=== PATIENT | male | born 1930 | race Two or more races ===

== ENCOUNTER → 2016-06-05 | Outpatient (CLI) | payer MEDICARE, OTHER ==
[~2016-06-05] MED LIST: ADENOSINE 71 MG in GIVE UN-DILUTED 0 ML IV SCH; ADENOSINE 90 MG/30 ML INJ IV ONE; FURO20TA GT
== END | disposition home or self-care (01) ==
LOC: Rad HDHVI 12:42
PROVIDERS: ATTEND Internal Medicine Cardiovascular Disease
DX: R07.9 Chest pain, unspecified (principal); I10 Essential (primary) hypertension; I25.10 Atherosclerotic heart disease of native coronary artery without angina pectoris; Z95.0 Presence of cardiac pacemaker; Z95.1 Presence of aortocoronary bypass graft
CPT/HCPCS: 78452; 93005; 96374; 96375; A9500; J0153

== ENCOUNTER → 2016-06-08 | Outpatient (CLI) | payer MEDICARE, OTHER ==
[~2016-06-08] MED LIST changes: -ADENOSINE 71 MG in GIVE UN-DILUTED 0 ML IV SCH; -ADENOSINE 90 MG/30 ML INJ IV ONE
== END | disposition home or self-care (01) ==
LOC: Rad HDHVI 14:22
PROVIDERS: ATTEND Internal Medicine Cardiovascular Disease
DX: I10 Essential (primary) hypertension (principal); E78.2 Mixed hyperlipidemia
CPT/HCPCS: 93306

== ENCOUNTER → 2016-10-27 | Outpatient (CLI) | payer MEDICARE, OTHER ==
[~2016-10-27] VITALS: Ht 170.2 cm; Wt 77.1 kg
[~2016-10-27] MED LIST changes: +BUDE1SUS9; +DEXL60CA3 PO; +DONE10TA17 PO; +FURO40TA PO; +IPRAAER6 IN; +METO50TA7 PO; +SIMV40TA96 PO; +TER5T PO; +TIOTCAP INH; +WARF4TAB31 PO; +[UNRECOGNIZED DRUG - CODE] PO
[2016-10-27 08:00] VITALS: BP 115/71
[2016-10-27 08:40] VITALS: BP 119/55
[2016-10-27 12:22] LABS: Basophils # (auto) 0 uL; Basophils % (auto) 0.5 % (0.0-2.0); CONDITION Y; Eosinophils # (auto) 0.1 uL; Eosinophils % (auto) 1.4 % (0.0-7.0); Hematocrit 42.9 % (41.0-53.0); Hemoglobin 14.3 g/dL (13.5-17.5); Lymphocytes # (auto) 1.6 uL; Lymphocytes % (auto) 22.5 % (10.0-50.0); Mean Corpuscular Hemoglobin 31.8 pg (28.0-32.0); Mean Corpuscular Hgb Conc. 33.4 g/dL (32.0-36.0); Mean Corpuscular Volume 95.1 fL (80.0-100.0); Mean Platelet Volume 9.9 fL (7.4-10.4); Monocytes # (auto) 0.5 uL; Monocytes % (auto) 7.5 % (0.0-12.0); Neutrophils # (auto) 4.9 uL; Neutrophils % (auto) 68.1 % (37.0-80.0); Platelet Count (auto) 193 10^3/uL (140-450); Red Cell Distribution Width 14.1 % (11.6-16.0); White Blood Cell 7.2 10^3/uL (4.4-10.8)
[2016-10-27 12:36] LABS: INR 2.27 (0.9-1.15); Partial Thromboplastin Time 35.2 sec (22.64-33.71)
[2016-10-27 12:41] LABS: Prothrombin Time 24.9 sec (9.37-12.3)
[2016-10-27 12:49] LABS: BUN/Creatinine Ratio 19.2; Calcium 8.6 mg/dL (8.5-10.1); Potassium 3.9 mmol/L (3.5-5.1)
== END | disposition home or self-care (01) ==
LOC: Rad HDHVI 08:09
PROVIDERS: ATTEND Internal Medicine Cardiovascular Disease
DX: Z01.818 Encounter for other preprocedural examination (principal); J90 Pleural effusion, not elsewhere classified; I25.10 Atherosclerotic heart disease of native coronary artery without angina pectoris; I70.0 Atherosclerosis of aorta; J98.11 Atelectasis; I10 Essential (primary) hypertension; D64.9 Anemia, unspecified; R79.1 Abnormal coagulation profile; Z95.1 Presence of aortocoronary bypass graft; Z95.0 Presence of cardiac pacemaker
CPT/HCPCS: 36415; 71020; 80048; 85025; 85610; 85730; 93005; G0463

== ENCOUNTER → 2016-11-02 | Day surgery (SDC) | payer MEDICARE, OTHER ==
[~2016-11-02] VITALS: Ht 170.2 cm; Wt 77.0 kg
[~2016-11-02] MED LIST changes: +VANCOMYCIN 1GM/250ML D5W 250 ML IV ONE; +VANCOMYCIN HCL 1000 MG VL IR ONE
== END | disposition home or self-care (01) ==
LOC: CATH 06:45
PROVIDERS: ATTEND Internal Medicine Cardiovascular Disease
DX: T82.111A Breakdown (mechanical) of cardiac pulse generator (battery), initial encounter (principal); Z53.9 Procedure and treatment not carried out, unspecified reason; Z95.1 Presence of aortocoronary bypass graft; Z87.891 Personal history of nicotine dependence

== ENCOUNTER → 2017-06-29 | Outpatient (CLI) | payer MEDICARE, OTHER ==
[~2017-06-29] MED LIST changes: +ADENOSINE 65 MG in GIVE UN-DILUTED 0 ML IV ONE; +ADENOSINE 90 MG/30 ML INJ IV ONE; -VANCOMYCIN 1GM/250ML D5W 250 ML IV ONE; -VANCOMYCIN HCL 1000 MG VL IR ONE
== END | disposition home or self-care (01) ==
LOC: Rad HDHVI 08:38
PROVIDERS: ATTEND Internal Medicine Cardiovascular Disease
DX: I48.91 Unspecified atrial fibrillation (principal); J44.9 Chronic obstructive pulmonary disease, unspecified; I63.9 Cerebral infarction, unspecified; N40.0 Benign prostatic hyperplasia without lower urinary tract symptoms; I10 Essential (primary) hypertension; E78.5 Hyperlipidemia, unspecified; R06.01 Orthopnea; Z95.0 Presence of cardiac pacemaker; Z95.1 Presence of aortocoronary bypass graft
CPT/HCPCS: 78452; 93005; 93306; 96374; 96375; A9500; J0153

== ENCOUNTER → 2018-07-15 | Outpatient (CLI) | payer MEDICARE, OTHER ==
[~2018-07-15] MED LIST changes: -ADENOSINE 65 MG in GIVE UN-DILUTED 0 ML IV ONE; -ADENOSINE 90 MG/30 ML INJ IV ONE; +MET5XLT PO; -METO50TA7 PO
== END | disposition home or self-care (01) ==
LOC: Rad HDHVI 10:30
PROVIDERS: ATTEND Internal Medicine Cardiovascular Disease
DX: I08.3 Combined rheumatic disorders of mitral, aortic and tricuspid valves (principal); I25.10 Atherosclerotic heart disease of native coronary artery without angina pectoris; I10 Essential (primary) hypertension; I27.20 Pulmonary hypertension, unspecified; M19.012 Primary osteoarthritis, left shoulder
CPT/HCPCS: 71250; 93306

== ENCOUNTER → 2018-12-03 | Outpatient (CLI) | payer MEDICARE, OTHER ==
[~2018-12-03] VITALS: Ht 170.2 cm; Wt 72.6 kg
[~2018-12-03] MED LIST changes: +ADENOSINE 61 MG in GIVE UN-DILUTED 0 ML IV ONE; +ADENOSINE 90 MG/30 ML INJ IV ONE; +FURO1TAB31 PO; +FURO1TAB33 GT; -FURO20TA GT; -FURO40TA PO; -MET5XLT PO; +METO-6 PO; +WARF4TAB PO; -WARF4TAB31 PO
== END | disposition home or self-care (01) ==
LOC: Rad HDHVI 13:46
PROVIDERS: ATTEND Internal Medicine Cardiovascular Disease
DX: R07.9 Chest pain, unspecified (principal); I10 Essential (primary) hypertension; E78.00 Pure hypercholesterolemia, unspecified
CPT/HCPCS: 78452; 93005; 96374; 96375; A9500; J0153

== ENCOUNTER → 2019-02-18 | Outpatient (CLI) | payer MEDICARE, OTHER ==
[~2019-02-18] MED LIST changes: -ADENOSINE 61 MG in GIVE UN-DILUTED 0 ML IV ONE; -ADENOSINE 90 MG/30 ML INJ IV ONE; +IOHEXOL 350 MG/ML 100ML IJ ONE; +LIDOCAINE 2%HCL (LOCAL ANESTH.) INJ 20ML MDV ONE
[2019-02-18 09:53] VITALS: BP 117/75
--- NOTE | 2019-02-18 10:30 | NUR ---
Pre-Op Discharge Summary: See e-MAR for any medications given for this visit. Pre-op orders received and carried out per MD of EKG, LABS and chest xrays. Patient given a copy of EKG with instructions to go to [facility] out patient for further follow up care.
[2019-02-18 12:10] LABS: BUN/Creatinine Ratio 14.5; Basophils # (auto) 0 uL; Basophils % (auto) 0.3 % (0.0-2.0); Calcium 8.8 mg/dL (8.5-10.1); Eosinophils # (auto) 0.1 uL; Eosinophils % (auto) 0.5 % (0.0-7.0); Hematocrit 46.1 % (41.0-53.0); Hemoglobin 15.6 g/dL (13.5-17.5); Lymphocytes # (auto) 1.5 uL; Lymphocytes % (auto) 13.7 % (10.0-50.0); Mean Corpuscular Hgb Conc. 33.7 g/dL (32.0-36.0); Mean Corpuscular Volume 97.8 fL (80.0-100.0); Monocytes # (auto) 0.8 uL; Monocytes % (auto) 6.9 % (0.0-12.0); Neutrophils # (auto) 8.7 uL; Neutrophils % (auto) 78.6 % (37.0-80.0); Platelet Count (auto) 163 10^3/uL (140-450); Potassium 3.8 mmol/L (3.5-5.1); Red Blood Cells 4.72 10^6/uL (4.5-5.90); Red Cell Distribution Width 14.8 % (11.8-14.3); White Blood Cell 11.1 10^3/uL (4.4-10.8)
[2019-02-18 12:13] LABS: INR 1.47 (0.9-1.15); Partial Thromboplastin Time 29.2 sec (23.64-32.05)
[2019-02-18 13:06] VITALS: BP 127/75
== END | disposition home or self-care (01) ==
LOC: Rad HDHVI 09:30
PROVIDERS: ATTEND Internal Medicine Cardiovascular Disease
DX: Z01.812 Encounter for preprocedural laboratory examination (principal); I25.10 Atherosclerotic heart disease of native coronary artery without angina pectoris
CPT/HCPCS: 36415; 71046; 80048; 85025; 85610; 85730; 93005; G0463

== ENCOUNTER 2019-02-20 08:14 | Day surgery (SDC) | payer MEDICARE, OTHER ==
[~2019-02-20] VITALS: Ht 172.7 cm; Wt 73.9 kg
[~2019-02-20 08:14] MED LIST changes: -IOHEXOL 350 MG/ML 100ML IJ ONE; -LIDOCAINE 2%HCL (LOCAL ANESTH.) INJ 20ML MDV ONE
[2019-02-20] MEDS ORDERED: fentaNYL CITRATE 100 MCG/2 ML VL ONE (10:34)
[2019-02-20] MEDS ORDERED: MIDAZOLAM HCL 1MG/1ML-2 ML VIAL ONE (10:34)
[2019-02-20] MEDS ORDERED: ANGIOMAX 250 MG VIAL IV ONE (10:34)
[2019-02-20] MEDS ORDERED: SODIUM CHL 0.9% 0 ML ONE (10:34)
[2019-02-20] MEDS ORDERED: IOHEXOL 350 MG/ML 100ML IJ ONE (10:47)
== END 2019-02-20 14:10 | disposition home or self-care (01) ==
LOC: CATH 08:14
PROVIDERS: ATTEND Internal Medicine Cardiovascular Disease
DX: I25.10 Atherosclerotic heart disease of native coronary artery without angina pectoris (principal); I48.91 Unspecified atrial fibrillation; I11.0 Hypertensive heart disease with heart failure; I50.9 Heart failure, unspecified; Z87.891 Personal history of nicotine dependence; Z95.1 Presence of aortocoronary bypass graft; Z88.0 Allergy status to penicillin
CPT/HCPCS: 93461; C1760; C1894; J1644; J2250; J3010; Q9967; 99152; 99153

== ENCOUNTER → 2019-03-26 | Outpatient (CLI) | payer MEDICARE, OTHER ==
[2019-03-26 12:20] LABS: BUN/Creatinine Ratio 13.2; Calcium 8.7 mg/dL (8.5-10.1); Potassium 3.8 mmol/L (3.5-5.1)
== END | disposition home or self-care (01) ==
LOC: LAB 11:07
PROVIDERS: ATTEND Internal Medicine Cardiovascular Disease
DX: I11.0 Hypertensive heart disease with heart failure (principal); I50.23 Acute on chronic systolic (congestive) heart failure
CPT/HCPCS: 36415; 80048; 83880

== ENCOUNTER → 2019-04-01 | Outpatient (CLI) | payer MEDICARE, OTHER | END | disposition home or self-care (01) | LOC: Rad HDHVI 11:37 | PROVIDERS: ATTEND Internal Medicine Cardiovascular Disease | DX: I08.8 Other rheumatic multiple valve diseases (principal); I50.33 Acute on chronic diastolic (congestive) heart failure; Z95.1 Presence of aortocoronary bypass graft; Z87.891 Personal history of nicotine dependence; Z88.0 Allergy status to penicillin | CPT/HCPCS: 93306 ==

== ENCOUNTER 2019-06-20 16:40 | Inpatient (IN) | payer MEDICARE, OTHER ==
[~2019-06-20] VITALS: Ht 172.7 cm; Wt 69.4 kg
--- NOTE | 2019-06-20 18:01 | NUR ---
Patient arrived to the floor.
[2019-06-20 18:05] VITALS: BP 146/106
[2019-06-20] MEDS ORDERED: SOTALOL HCL 80 MG TAB PO ONE (18:15)
[2019-06-20] MEDS ORDERED: SODIUM CHLORIDE 0.9% 1,000 ML IV SCH (18:15)
[2019-06-20] MEDS ORDERED: NITROGLYCERIN 0.4 MG SL TAB SL PRN (18:15)
[2019-06-20] MEDS ORDERED: KETOROLAC TROMETH 30 MG/ML 1ML VIAL IV PRN (18:15)
[2019-06-20] MEDS ORDERED: MORPHINE SULF INJ 2 MG/ML SYRINGE 1ML IV PRN (18:15)
[2019-06-20 21:44] LABS: Albumin 2.8 g/dL (3.4-5.0); Calcium 8.5 mg/dL (8.5-10.1); Potassium 3.8 mmol/L (3.5-5.1)
[2019-06-20 21:45] LABS: BUN/Creatinine Ratio 20.9
[2019-06-20 21:47] LABS: Bilirubin, Total 1.1 mg/dL (0.2-1.0)
[2019-06-20 22:00] VITALS: BP 150/95
[2019-06-21 05:00] VITALS: BP 153/98
[2019-06-21 06:29] LABS: INR 2.97 (0.9-1.15); Partial Thromboplastin Time 38.2 sec (23.64-32.05)
--- NOTE | 2019-06-21 07:30 | NUR ---
Opening Shift Note Assuming care of patient at this time. Patient is awake and alert. Patient denies pain. Patient shows no signs or symptoms of distress or shortness of breath. Bed is locked and lowered with side rails up x2. Instructed patient on the plan of care for today and to call for assistance as needed. Call light within reach. Will continue to round hourly and as needed.
--- NOTE | 2019-06-21 08:00 | NUR ---
Bowel Movement Patient had a large bowel movement in the bed this morning. Patient states that he called, but could not hold it. Complete linen change done at this time. Patient tolerated well. Patient, currently sitting up in bed eating breakfast.
[2019-06-21 09:00] VITALS: BP 156/96
[2019-06-21] MEDS: KETOROLAC TROMETH 30 MG/ML 1ML VIAL IV PRN ×2 (09:19→18:05)
[2019-06-21] MEDS ORDERED: SOTALOL HCL 80 MG TAB PO SCH ×2 (10:00)
[2019-06-21] MEDS ORDERED: DIGOXIN (250MCG/ML) 2 ML AMPULE IV ONE (10:00)
[2019-06-21 13:00] VITALS: BP 131/83
[2019-06-21 17:00] VITALS: BP 139/85
[2019-06-21 17:55] LABS: Urine Bacteria MOD /hpf (None Seen); Urine Blood 3+ /uL (Negative); Urine Mucus MODERATE (None Seen); Urine Specific Gravity 1.026 (1.001-1.035); Urine WBC 310 /hpf (0 - 3)
[2019-06-21] MEDS: RIVAROXABAN 20 MG TAB PO SCH (17:56)
--- NOTE | 2019-06-21 19:09 | NUR ---
Closing Shift Note Patient resting in bed. No distress noted. Report given. Will endorse care to the nightclub manager RN.
--- NOTE | 2019-06-21 19:15 | NUR ---
assumed care, pt. awake, pt. on bsc, relative at bedside, pt. back to bed, no c/o pain, not in distress.
[2019-06-21 22:00] VITALS: BP 142/81
[2019-06-21] MEDS: MAGNESIUM OXIDE 400 MG TAB PO SCH (22:12)
[2019-06-21] MEDS: SACUBITRIL-VALSARTAN 24mg/26mg TAB PO SCH (22:12)
[2019-06-21] MEDS: SOTALOL HCL 80 MG TAB PO SCH (22:12)
[2019-06-22] MEDS: KETOROLAC TROMETH 30 MG/ML 1ML VIAL IV PRN ×2 (04:38→11:34)
[2019-06-22 05:00] VITALS: BP 146/83
[2019-06-22 05:56] LABS: BUN/Creatinine Ratio 33.3; Calcium 8.2 mg/dL (8.5-10.1); Magnesium 2.5 mg/dL (1.6-2.6); Potassium 3.5 mmol/L (3.5-5.1)
[2019-06-22 09:00] VITALS: BP 139/76
[2019-06-22] MEDS: MAGNESIUM OXIDE 400 MG TAB PO SCH ×2 (10:13→21:54)
[2019-06-22] MEDS: SACUBITRIL-VALSARTAN 24mg/26mg TAB PO SCH ×2 (10:14→21:54)
--- NOTE | 2019-06-22 10:14 | NUR ---
Visitors Granddaughter at bedside visiting patient. Daughter, Debbi, and son-in-law walk in at this time. The family begins arguing about patient care and well-being. Daughter eventually leaves the room. Daughter tell this RN outside of room she does not want any information given to other members of the family. Patient is alert and oriented at this time and able to make decisions regarding his care and who is informed.
[2019-06-22] MEDS: SOTALOL HCL 80 MG TAB PO SCH ×2 (10:18→21:53)
--- NOTE | 2019-06-22 10:20 | NUR ---
Daughter's Information Debbi
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
[2019-06-22] MEDS: cefTRIAXone 1GM/50ML D5W 50 ML IV SCH (11:34)
--- NOTE | 2019-06-22 11:50 | NUR ---
[place] at bedside [place] at bedside at this time due to patient's granddaughter call.
[2019-06-22 13:00] VITALS: BP 127/94
--- NOTE | 2019-06-22 14:23 | NUR ---
Re: Granddaughter Information Silvana
[2019-06-22 17:00] VITALS: BP 127/85
[2019-06-22] MEDS: RIVAROXABAN 20 MG TAB PO SCH (17:48)
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
--- NOTE | 2019-06-22 19:18 | NUR ---
Closing Shift Note Patient resting in bed. No distress noted. Report given. Will endorse care to the manager training and development RN.
--- NOTE | 2019-06-22 19:25 | NUR ---
assumed care, pt. awake, c/o pain, no sob.
[2019-06-22 22:00] VITALS: BP 133/77
[2019-06-23] VITALS (7 sets, daily range): BP systolic 124–149; BP diastolic 73–92
[2019-06-23] MEDS: KETOROLAC TROMETH 30 MG/ML 1ML VIAL IV PRN (05:27)
--- NOTE | 2019-06-23 07:15 | NUR ---
Opening Shift Note Assumed care of patient, awake and alert. No S/S of distress/SOB or pain. Instructed on POC and to call for assist PRN, will continue to monitor for changes Q1hr and PRN. Bed is set in lowest locked position with side rails up x 2 for safety and call light is within reach.
[2019-06-23] MEDS: SOTALOL HCL 80 MG TAB PO SCH ×2 (09:10→21:37)
[2019-06-23] MEDS: cefTRIAXone 1GM/50ML D5W 50 ML IV SCH (09:10)
[2019-06-23] MEDS: MAGNESIUM OXIDE 400 MG TAB PO SCH ×2 (09:10→21:36)
[2019-06-23] MEDS: SACUBITRIL-VALSARTAN 24mg/26mg TAB PO SCH ×2 (09:11→21:36)
[2019-06-23 10:24] LABS: Basophils # (auto) 0 uL; Basophils % (auto) 0.4 % (0.0-2.0); Eosinophils # (auto) 0.2 uL; Eosinophils % (auto) 1.5 % (0.0-7.0); Hematocrit 44.4 % (41.0-53.0); Hemoglobin 15.1 g/dL (13.5-17.5); Lymphocytes % (auto) 10.3 % (10.0-50.0); Mean Corpuscular Hemoglobin 31.8 pg (28.0-32.0); Mean Corpuscular Volume 93.5 fL (80.0-100.0); Monocytes # (auto) 0.8 uL; Monocytes % (auto) 7.6 % (0.0-12.0); Neutrophils # (auto) 8.1 uL; Neutrophils % (auto) 80.2 % (37.0-80.0); Platelet Count (auto) 119 10^3/uL (140-450); Red Blood Cells 4.75 10^6/uL (4.5-5.90); Red Cell Distribution Width 13.6 % (11.8-14.3); White Blood Cell 10.1 10^3/uL (4.4-10.8)
[2019-06-23 10:31] LABS: INR 3.38 (0.9-1.15)
[2019-06-23 10:39] LABS: BUN/Creatinine Ratio 27.5; Calcium 7.8 mg/dL (8.5-10.1); Potassium 3.8 mmol/L (3.5-5.1)
[2019-06-23] MEDS: RIVAROXABAN 20 MG TAB PO SCH (18:15)
--- NOTE | 2019-06-23 19:11 | NUR ---
Endorsed care to NOC RN.
--- NOTE | 2019-06-23 19:25 | NUR ---
Opening Shift Note Assumed care of patient, awake and alert X4. No S/S of distress/SOB or pain. Call light is within reach, side rails up x2, bed is in lowest position, bed alarm is on. Instructed on need to be NPO after midnight for cardioversion in the am, patient verbalized understanding. Instructed on POC and to call for assist PRN, will continue to monitor for changes Q1hr and PRN.
[2019-06-24] VITALS (9 sets, daily range): BP systolic 128–155; BP diastolic 73–89
--- NOTE | 2019-06-24 01:21 | NUR ---
Patient found pulling on his romano, he stated, "I need to go to the bathroom and this machine is in the way." Reoriented patient to his surroundings and what the romano is. Patient verbalized understanding and said, "I won't pull on it anymore, it hurts." There is blood present in the romano, and it is in place. Will continue to monitor.
--- NOTE | 2019-06-24 03:05 | NUR ---
Patient is resting in bed asleep, no S/S of distress. Call light is within reach, will continue to monitor.
--- NOTE | 2019-06-24 07:17 | NUR ---
Opening Shift Note Assumed care of patient, awake and alert. No S/S of distress/SOB or pain. Instructed on POC and to call for assist PRN, will continue to monitor for changes Q1hr and PRN.
[2019-06-24] MEDS: MAGNESIUM OXIDE 400 MG TAB PO SCH ×2 (09:01→21:51)
[2019-06-24] MEDS: cefTRIAXone 1GM/50ML D5W 50 ML IV SCH (09:01)
[2019-06-24] MEDS: SACUBITRIL-VALSARTAN 24mg/26mg TAB PO SCH ×2 (09:01→21:51)
[2019-06-24] MEDS: SOTALOL HCL 80 MG TAB PO SCH ×2 (09:02→21:51)
[2019-06-24] MEDS: KETOROLAC TROMETH 30 MG/ML 1ML VIAL IV PRN (09:03)
--- NOTE | 2019-06-24 11:55 | NUR ---
Patient off unit Taken down to cathead operator for procedure, no distress noted on departure, IV flushed prior and is intact/patent.
[2019-06-24] MEDS ORDERED: MIDAZOLAM HCL 1MG/1ML-2 ML VIAL IV ONE (12:00)
--- NOTE | 2019-06-24 13:27 | NUR ---
NUTRITION ASSESSMENT NOTES Please refer to link notes of nutrition screen form filed under the intervention section of the plan of care for further details. Est. Needs: 1750 kcal to 2100 kcal (25-30 kcal/kgBW), 70 gms to 91 gms pro (1.0-1.2 gms/kgBW). Will continue to monitor pertinent labs and reassess nutrient needs prn Thank you. Addendum: 06/24/19 at [address] Amended: Links added.
--- NOTE | 2019-06-24 15:36 | NUR ---
Assessment Pt went bedside twice to do initial assessment and both times the bed was gone from the room. The pt's was in the room the 2nd time and answered questions on patients behalf. Pt's baseline is alert and oriented. Pt lives at home with his . Pt's daughter Debbi is his emergency contact at [phone]. Pt used no DME in the home and was ambulatory and independent with ADL's. Pt's Primary is Dr. Morales, has no AD, and receives income. No HH or dialysis prior to admit. Pt will d/c back home upon medical clearance. Pt's was understanding and agreeable to d/c plan. Pt's will transport him home. No needs assessed. Addendum: 06/24/19 at 1541 by TOMY LANGFORD Amended: Links added.
--- NOTE | 2019-06-24 16:40 | NUR ---
Patient returned from procedure No distress noted. Patient is resting in bed, family is at bedside at this time.
[2019-06-24] MEDS: RIVAROXABAN 20 MG TAB PO SCH (18:12)
--- NOTE | 2019-06-24 19:25 | NUR ---
OPENING SHIFT NOTE Assumed care of patient who is oriented x3. Easily arouses to name. Currently on 2L NC with no s/s of distress. Denies SOB and pain at this time. Jean-Baptiste catheter is place. Patent and draining to pink tinged urine to gravity. Tubing is free from kinks and collection bag is hung below the level of the bladder. Bed is in low locked position with side rails up x2. Bed alarm on for patient safety due to sedation post procedure. Call light is within reach and patient encouraged to call for assistance when needed. Will continue to monitor for changes PRN.
[2019-06-25] VITALS (7 sets, daily range): BP systolic 127–173; BP diastolic 70–84
--- NOTE | 2019-06-25 03:58 | NUR ---
Patient assisted to bedside commode for bowel movement. Stool is dark in color, with scant amount of nimisha blood noted. MD to be notified. Patient assisted back into bed upon completion and tolerated well.
[2019-06-25] MEDS: MAGNESIUM OXIDE 400 MG TAB PO SCH ×2 (09:03→22:10)
[2019-06-25] MEDS: SACUBITRIL-VALSARTAN 24mg/26mg TAB PO SCH ×2 (09:03→22:10)
[2019-06-25] MEDS: cefTRIAXone 1GM/50ML D5W 50 ML IV SCH (09:03)
[2019-06-25] MEDS: SOTALOL HCL 80 MG TAB PO SCH ×2 (09:04→22:10)
--- NOTE | 2019-06-25 11:34 | NUR ---
Spoke to MD Dr. Andrew MD aware of minimal hematuria in patient's romano catheter bag. No new orders received at this time.
--- NOTE | 2019-06-25 16:15 | NUR ---
MD at bedside Dr. Morales, updated pt on POC, new orders received at this time, will carry out orders.
--- NOTE | 2019-06-25 16:27 | NUR ---
Romano catheter dc'd Order to discontinue romano catheter. Romano dc'd with clean technique following deflation of balloon. Patient tolerated well with no complaints of pain. Continue care.
[2019-06-25] MEDS: RIVAROXABAN 20 MG TAB PO SCH (17:44)
--- NOTE | 2019-06-25 19:27 | NUR ---
Endorsed care to NOC RN.
--- NOTE | 2019-06-25 19:28 | NUR ---
OPENING SHIFT NOTE Assumed care of patient who is A&O x4. Currently on RA with no s/s of distress. Denies pain at this time. Patient is able to transfer to the bedside commode with standby assist. PIVs in right forearm intact and patent. Flushed with 10ml NS. POC discussed and all questions answered. Bed is in low locked position with side rails up x2. Call light is within reach and patient encouraged to call for assistance when needed. Will continue to monitor for changes PRN.
--- NOTE | 2019-06-25 20:30 | NUR ---
Patient reports that he has voided x1 post romano removal. Void not visualized by this RN.
--- NOTE | 2019-06-25 23:00 | NUR ---
WELLFIELD TECHNICIAN verified that patient has produced a minimal amount of urine in urinal.
--- NOTE | 2019-06-26 00:02 | NUR ---
ROUNDS Patient C/O pain to lower back. Repositioned in bed and heat packs provided. Patient verbalizes improvement in pain. Call light is within reach and patient encouraged to call for assistance when needed. Will continue to monitor for changes PRN.
--- NOTE | 2019-06-26 04:50 | NUR ---
BLADDER SCAN Bladder scan performed to rule out urinary retention post Jean-Baptiste removal due to minimal output. No residual detected.
[2019-06-26 05:00] VITALS: BP 142/72
--- NOTE | 2019-06-26 05:13 | NUR ---
Patient instructed to drink water to encourage urine output. Patient is compliant with request and is currently drinking water.
--- NOTE | 2019-06-26 05:30 | NUR ---
Patient able to produce small amount of pink tinged urine. States that he feels that his "urine is stuck". Bladder scan performed 674ml detected. paged to notify.
[2019-06-26 09:00] VITALS: BP 170/84
--- NOTE | 2019-06-26 09:30 | NUR ---
PATIENT UP WITH PHYSICAL THERAPY.
--- NOTE | 2019-06-26 10:00 | NUR ---
BLADDER SCAN SHOWING >999ML POST VOID.
[2019-06-26] MEDS: cefTRIAXone 1GM/50ML D5W 50 ML IV SCH (10:08)
[2019-06-26] MEDS: SACUBITRIL-VALSARTAN 24mg/26mg TAB PO SCH ×2 (10:09→21:49)
[2019-06-26] MEDS: SOTALOL HCL 80 MG TAB PO SCH ×2 (10:09→21:48)
[2019-06-26] MEDS: MAGNESIUM OXIDE 400 MG TAB PO SCH ×2 (10:09→21:49)
--- NOTE | 2019-06-26 10:15 | NUR ---
recieved order for romano catheter from MD Morales.
--- NOTE | 2019-06-26 10:20 | NUR ---
Romano catheter insertion Patient assessed and determined to be in need of romano catheter. Order obtained from MD. Patient educated on catheter and reason for insertion. All questions answered. Romano catheter 16 gauge Malay inserted with clean sterile technique. Patient tolerated well.
[2019-06-26 13:00] VITALS: BP 155/77
[2019-06-26] MEDS ORDERED: TAMSULOSIN HYDROCHLORIDE 0.4 MG CAP PO ONE (14:15)
[2019-06-26] MEDS ORDERED: FINASTERIDE 5 MG TAB PO ONE (14:15)
[2019-06-26 17:00] VITALS: BP 136/71
[2019-06-26] MEDS: RIVAROXABAN 20 MG TAB PO SCH (17:30)
--- NOTE | 2019-06-26 19:00 | NUR ---
Opening Shift Note Assumed care of patient, pt asleep and hard to arouse, was able to assess pt, but pt was drowsy, no abnormalities noted, will continue to monitor vital signs. No S/S of distress/SOB or pain. Instructed on POC and to call for assist PRN, will continue to monitor for changes Q1hr and PRN. pt in lowest possible position with call light within reach.
[2019-06-26 20:00] VITALS: BP 121/67
[2019-06-26] MEDS: TAMSULOSIN HYDROCHLORIDE 0.4 MG CAP PO SCH (21:49)
[2019-06-27 04:45] VITALS: BP 109/76
--- NOTE | 2019-06-27 06:57 | NUR ---
Closing shift note Pt in lowest possible position, with bed rails up x2, and call light within reach. Pt is asleep with no complaints of pain. Will endorse to day shift DHRUV Gutierrez.
--- NOTE | 2019-06-27 08:20 | NUR ---
Opening Note Assumed care of patient, he is A & O x4, patient is hard of hearing. POC discussed. No s/s of distress at this time. Bed is in lowest, locked position, call light within reach, bed alarm on for safety. Will continue to monitor Q1h and PRN.
[2019-06-27 09:00] VITALS: BP 111/66
[2019-06-27] MEDS: cefTRIAXone 1GM/50ML D5W 50 ML IV SCH (10:05)
[2019-06-27] MEDS: SACUBITRIL-VALSARTAN 24mg/26mg TAB PO SCH ×2 (10:06→21:45)
[2019-06-27] MEDS: FINASTERIDE 5 MG TAB PO SCH (10:07)
[2019-06-27] MEDS: TAMSULOSIN HYDROCHLORIDE 0.4 MG CAP PO SCH ×2 (10:07→21:45)
[2019-06-27] MEDS: SOTALOL HCL 80 MG TAB PO SCH ×2 (10:08→21:45)
[2019-06-27] MEDS: MAGNESIUM OXIDE 400 MG TAB PO SCH ×2 (10:09→21:45)
[2019-06-27 13:00] VITALS: BP_SYST 103; BP_SYST 98; BP_DIAS 66; BP_DIAS 67
[2019-06-27 16:48] VITALS: BP 98/67
[2019-06-27] MEDS: RIVAROXABAN 20 MG TAB PO SCH (18:27)
--- NOTE | 2019-06-27 19:00 | NUR ---
Opening Shift Note Assumed care of patient, awake and alert. No S/S of distress/SOB or pain. Instructed on POC and to call for assist PRN, will continue to monitor for changes Q1hr and PRN. Pt not on O2 at the moment, pt stated that he needs it to sleep and would like it back on him when he is ready for bed. Will continue to monitor pts O2 saturations. Pt in the lowest possible position with bed rails up x2 and call light within reach.
[2019-06-27 20:00] VITALS: BP 92/62
[2019-06-27] MEDS: KETOROLAC TROMETH 15 mg/ml 1ML VL IV PRN (20:48)
[2019-06-27 21:45] VITALS: BP 92/62
[2019-06-28 05:01] VITALS: BP 96/65
--- NOTE | 2019-06-28 07:05 | NUR ---
Closing note. Will endorse to day shift RN.
[2019-06-28 09:00] VITALS: BP 118/74
[2019-06-28] MEDS: MAGNESIUM OXIDE 400 MG TAB PO SCH ×2 (10:21→22:34)
[2019-06-28] MEDS: SOTALOL HCL 80 MG TAB PO SCH ×2 (10:23→22:35)
[2019-06-28] MEDS: FINASTERIDE 5 MG TAB PO SCH (10:24)
[2019-06-28] MEDS: cefTRIAXone 1GM/50ML D5W 50 ML IV SCH (10:24)
[2019-06-28] MEDS: TAMSULOSIN HYDROCHLORIDE 0.4 MG CAP PO SCH ×2 (10:27→22:35)
[2019-06-28] MEDS: SACUBITRIL-VALSARTAN 24mg/26mg TAB PO SCH ×2 (10:27→22:35)
--- NOTE | 2019-06-28 12:09 | NUR ---
Dr. Morales at bedside. Family at bedside with patient. Orders received to discontinue romano catheter, scan bladder in a few hours if patient is retaining urine, to reinsert catheter and notify MD, read back and verified.
--- NOTE | 2019-06-28 12:30 | NUR ---
Romano Catheter removed per orders. 900 ml of urine in romano bag prior to catheter removal. Using clean technique removed romano catheter per protocol. Patient tolerated well. Will monitor urine output.
[2019-06-28 13:00] VITALS: BP 122/74
--- NOTE | 2019-06-28 16:30 | NUR ---
Bladder Scan, urinary retention Patient dribbling urine, unable to urinate since removal of romano catheter. Bladder scan done 977ml retained in bladder. Replaced romano catheter per orders, 800 ml output into catheter. Patient tolerated procedure well.
[2019-06-28 17:00] VITALS: BP 110/60
--- NOTE | 2019-06-28 17:00 | NUR ---
Informed Dr. Morales of urinary retention. Orders for urology consultation received, read back, and verified.
[2019-06-28 20:00] VITALS: BP 110/55
[2019-06-28] MEDS: KETOROLAC TROMETH 15 mg/ml 1ML VL IV PRN (21:04)
[2019-06-28 22:00] VITALS: BP 110/55
[2019-06-29] MEDS: KETOROLAC TROMETH 15 mg/ml 1ML VL IV PRN ×2 (04:02→19:41)
[2019-06-29 05:00] VITALS: BP 109/70
[2019-06-29] MEDS: RIVAROXABAN 20 MG TAB PO SCH ×2 (07:53→18:08)
[2019-06-29 08:00] VITALS: BP 117/57
[2019-06-29] MEDS: FINASTERIDE 5 MG TAB PO SCH (09:55)
[2019-06-29] MEDS: MAGNESIUM OXIDE 400 MG TAB PO SCH ×2 (09:55→22:31)
[2019-06-29] MEDS: SACUBITRIL-VALSARTAN 24mg/26mg TAB PO SCH ×2 (09:55→22:30)
[2019-06-29] MEDS: cefTRIAXone 1GM/50ML D5W 50 ML IV SCH (09:55)
[2019-06-29] MEDS: TAMSULOSIN HYDROCHLORIDE 0.4 MG CAP PO SCH ×2 (09:57→22:31)
[2019-06-29] MEDS: SOTALOL HCL 80 MG TAB PO SCH ×2 (09:58→22:00)
[2019-06-29 12:00] VITALS: BP 119/66
[2019-06-29 16:48] VITALS: BP 115/65
--- NOTE | 2019-06-29 19:05 | NUR ---
OPENING SHIFT NOTE Assumed care of patient who is A&O x4. Currently on 2L NC with no s/s of distress or SOB. Patient reports 6/10 back pain. Pain management options discussed. Jean-Baptiste catheter in place; patent and draining to gravity. Collection bag is hung below the level of the bladder and tubing is free from kinks. Patient is ambulatory with standby assist; uses a cane for mobility at baseline. POC discussed with patient who verbalizes understanding. Bed is in low locked position with side rails up x2. Call light is within reach and patient instructed to call for assistance when needed. Will continue to monitor for changes PRN.
[2019-06-29 20:00] VITALS: BP 96/56
[2019-06-29 22:00] VITALS: BP 96/56
[2019-06-30 05:00] VITALS: BP 102/69
--- NOTE | 2019-06-30 05:10 | NUR ---
Oxygen saturation Patient sating in the 80s on RA. HOB elevated and patient placed on 4L NC. Saturation increased to 100%. Patient has dry cough- states it began yesterday. Lungs are clear throughout. Will continue to monitor.
--- NOTE | 2019-06-30 05:34 | NUR ---
Page sent to Dr. Morales regarding patient's cough and low saturations this morning. Awaiting call back.
[2019-06-30] MEDS: KETOROLAC TROMETH 15 mg/ml 1ML VL IV PRN (05:51)
--- NOTE | 2019-06-30 07:32 | NUR ---
Spoke with Dr. Morales, New orders received. Will input and follow through.
[2019-06-30 09:00] VITALS: BP 122/63
[2019-06-30] MEDS: cefTRIAXone 1GM/50ML D5W 50 ML IV SCH (09:53)
[2019-06-30] MEDS: TAMSULOSIN HYDROCHLORIDE 0.4 MG CAP PO SCH ×2 (09:56→22:11)
[2019-06-30] MEDS: MAGNESIUM OXIDE 400 MG TAB PO SCH ×2 (09:57→22:00)
[2019-06-30] MEDS: FINASTERIDE 5 MG TAB PO SCH (09:57)
[2019-06-30] MEDS: SOTALOL HCL 80 MG TAB PO SCH ×2 (09:58→22:10)
[2019-06-30] MEDS: SACUBITRIL-VALSARTAN 24mg/26mg TAB PO SCH ×2 (10:02→22:11)
[2019-06-30 12:10] LABS: Basophils # (auto) 0 10 ^3/uL (0-0.2); Basophils % (auto) 0.6 % (0.0-2.0); Eosinophils # (auto) 0.2 10 ^3/uL (0-0.8); Eosinophils % (auto) 2.3 % (0.0-7.0); Hematocrit 43.1 % (41.0-53.0); Hemoglobin 14.6 g/dL (13.5-17.5); Lymphocytes # (auto) 1.1 10 ^3/uL (0.4-5.4); Lymphocytes % (auto) 15.2 % (10.0-50.0); Mean Corpuscular Hemoglobin 31.7 pg (28.0-32.0); Mean Corpuscular Hgb Conc. 33.9 g/dL (32.0-36.0); Mean Corpuscular Volume 93.4 fL (80.0-100.0); Monocytes # (auto) 0.8 10 ^3/uL (0-1.3); Neutrophils # (auto) 5.1 10 ^3/uL (1.6-8.6); Neutrophils % (auto) 70.9 % (37.0-80.0); Nucleated Red Blood Cells % 0.1 %; Platelet Count (auto) 185 10^3/uL (140-450); Red Blood Cells 4.61 10^6/uL (4.5-5.90); Red Cell Distribution Width 14.2 % (11.8-14.3); White Blood Cell 7.2 10^3/uL (4.4-10.8)
[2019-06-30 12:35] LABS: Albumin 2.4 g/dL (3.4-5.0); Calcium 8.1 mg/dL (8.5-10.1); Potassium 4.3 mmol/L (3.5-5.1)
[2019-06-30 12:41] LABS: BUN/Creatinine Ratio 24.8; Bilirubin, Total 0.4 mg/dL (0.2-1.0); Total Protein 5.3 g/dL (6.4-8.2)
[2019-06-30 13:00] VITALS: BP 104/72
--- NOTE | 2019-06-30 14:37 | NUR ---
ASKED ECOLOGICAL MODELER TO CALL IN UROLOGY CONSULT.
--- NOTE | 2019-06-30 16:44 | NUR ---
WOUND CARE PT LEFT HAND AND ELBOW CLEANSED WITH WOUND CLEANSER, DRIED WITH 4X4 GAUZE AND COVERED WITH OPTIFOAM.
[2019-06-30 17:00] VITALS: BP 116/62
[2019-06-30] MEDS: RIVAROXABAN 20 MG TAB PO SCH (17:40)
--- NOTE | 2019-06-30 17:58 | NUR ---
OUTPUT CREDENTIALER SUMMER REPORTS PT URINE OUTPUT 450 MLS FOR SHIFT.
--- NOTE | 2019-06-30 18:39 | NUR ---
BOTH IV'S LFA AND WRIST DC'D. MODERATE SKIN TEAR FROM LFA IV REMOVAL. CLEANSED WITH WOUND CLEANSER, PATTED DRY WITH 4X4 GAUZE AND COVERED WITH OPTIFOAM. NEW IV INSERTED LFA 22G FLUSHED WITH 0.9 NS. PT TOLERATED PROCEDURE WELL. SMALL AMOUNT OF BLOOD NOTED IN PT CUEVAS, APPROX 50 MLS PINK URINE NOTED. CALLED PBX AND PAGED HOSPITALIST, AWAITING CALL BACK. Addendum: 06/30/19 at 1849 by LYNDSAY BRADFORD RN ATTEMPTED TO USE ALCOHOL SWABS TO REMOVE TAGADERM FROM IV. PT SKIN STILL TORE.
--- NOTE | 2019-06-30 18:40 | NUR ---
IV'S PLACED 06/20, SO THEY WERE REMOVED. SKIN TEAR RFA FROM ATTEMPTING TO REMOVE TEGADERM FROM SKIN. MODERATE AMOUNT OF BLOOD NOTED.
--- NOTE | 2019-06-30 18:49 | NUR ---
DR BIGGS CALLED BACK NOTIFIED MD OF BLOOD IN CUEVAS, NOTIFIED UROLOGY DR ALMAZAN ON BOARD AND PT TAKING XARELTO. AWARE, NEW ORDERS TO MONITOR.
[2019-06-30 22:00] VITALS: BP 135/69
[2019-07-01] MEDS: KETOROLAC TROMETH 15 mg/ml 1ML VL IV PRN ×2 (00:25→22:38)
[2019-07-01 05:00] VITALS: BP 122/63
--- NOTE | 2019-07-01 06:52 | NUR ---
WOUND CARE WOUND LEFT FOREARM CLEANED AND NEW OPTIFOAM APPLIED. WOUND CONSULT PUT IN. PT TOLERATED PROCEDURE WELL, WILL CONTINUE TO MONITOR.
[2019-07-01 09:00] VITALS: BP 123/50
--- NOTE | 2019-07-01 09:38 | NUR ---
INTERVENTIONAL NEURORADIOLOGIST REPORTS PT HR 55 BPM, REASSESSED HR, HR 82 BPM.
[2019-07-01] MEDS: cefTRIAXone 1GM/50ML D5W 50 ML IV SCH (09:56)
[2019-07-01] MEDS: SACUBITRIL-VALSARTAN 24mg/26mg TAB PO SCH ×2 (09:57→22:37)
[2019-07-01] MEDS: FINASTERIDE 5 MG TAB PO SCH (09:57)
[2019-07-01] MEDS: TAMSULOSIN HYDROCHLORIDE 0.4 MG CAP PO SCH ×2 (09:57→22:37)
[2019-07-01] MEDS: SOTALOL HCL 80 MG TAB PO SCH ×2 (09:58→22:37)
[2019-07-01] MEDS: MAGNESIUM OXIDE 400 MG TAB PO SCH ×2 (09:59→22:00)
--- NOTE | 2019-07-01 11:16 | NUR ---
BRADY FROM WOUND CARE REPORTS SHE WILL SEE PATIENT THIS AFTERNOON.
--- NOTE | 2019-07-01 12:04 | NUR ---
WOUND CARE ASSISTED BRADY FROM WOUND CARE WITH DRESSING CHANGE TO RIGHT FOREARM. WOUND CLEANSED WITH WOUND CLEANSER, THERA HONEY APPLIED. THEN PETROLEUM SHEET ADDED AND COVERED WITH KERLIX. PT TOLERATED PROCEDURE WELL. WOUND PHOTO TAKEN.
--- NOTE | 2019-07-01 12:08 | NUR ---
WOUND CARE NOTE: Wound care into see patient per wound care request regarding "Right forearm skin tear". Patient is 88 years old male with admitting diagnosis of A Fib. Patient is resting in bed in Rm. 277B. Patient is awake, alert and oriented. Patient is in no stated pain at this time. He's self turn and repositioning. His Gerson score is 19. Skin assessment done with the assistance of patient's nurse, DHRUV Ceron. Patient developed skin tear upon removal of IV dressing to Rt forearm per nurse's reports. Noted patient's Rt forearm has 7x5cm open skin tear. Wound is red with pink aurea wound, minimal sanguinous drainage noted, no odor noted. Cleansed patient's Rt forearm skin tear with NS, patted dry with gauze, applied Thera honey gel, covered with oil emulsion dressing and Telfa, wrap with Kerlix and secured with tape. Dry scab also noted on patient's L hand. He also came in with multi skin tears to Lt elbow with, clean, dry intact dressing on. Photograph of patient's new Rt forearm skin tear are taken for reference. No pressure injury noted. No further wound care monitoring needed at this time. DHRUV Ceron at bedside. RECOMMENDATION: Nursing to continue with Q3Days/PRN dressing change to Rt forearm skin tear per MD order, avoid tape on skin, reconsult for active wound, pressure injury, low Gerson score of 12 and below. Addendum: 07/01/19 at 1600 by Ayanna Vasquez RN Amended: Links added.
[2019-07-01 12:54] VITALS: BP 121/69
--- NOTE | 2019-07-01 12:58 | NUR ---
CALLED AND LEFT MESSAGE FOR DR TAVERAS, NOTIFYING MD OF PT SKIN TEAR RFA, WOUND CONSULT AND WOUND CARE. ALSO PUT IN MESSAGE PT HAS SLIGHT AMOUNT OF BLOOD IN URINE. AWAITING CALL BACK.
[2019-07-01 16:37] VITALS: BP 121/90
[2019-07-01] MEDS: RIVAROXABAN 20 MG TAB PO SCH (18:11)
[2019-07-01] MEDS ORDERED: KETOROLAC TROMETH 15 mg/ml 1ML VL IV ONE (19:15)
[2019-07-01 22:08] VITALS: BP 114/64
[2019-07-02 05:00] VITALS: BP 103/57
[2019-07-02] MEDS: KETOROLAC TROMETH 15 mg/ml 1ML VL IV PRN (07:15)
[2019-07-02 09:00] VITALS: BP 90/51
[2019-07-02] MEDS: SOTALOL HCL 80 MG TAB PO SCH ×3 (09:48→22:00)
[2019-07-02] MEDS: cefTRIAXone 1GM/50ML D5W 50 ML IV SCH (09:48)
[2019-07-02] MEDS: MAGNESIUM OXIDE 400 MG TAB PO SCH ×3 (09:49→22:00)
[2019-07-02] MEDS: FINASTERIDE 5 MG TAB PO SCH (09:50)
[2019-07-02] MEDS: TAMSULOSIN HYDROCHLORIDE 0.4 MG CAP PO SCH ×3 (09:50→22:00)
[2019-07-02] MEDS: SACUBITRIL-VALSARTAN 24mg/26mg TAB PO SCH ×2 (09:52→21:53)
--- NOTE | 2019-07-02 11:45 | NUR ---
Called Dr. Morales regarding holding the Sotalol due to low BP 90/51, hr 87, left a message, awaiting call back.
--- NOTE | 2019-07-02 12:05 | NUR ---
returned call Dr. Morales returned call, updated on patient status and reason for call, orders received to d/c pt home with leg bag, educate pt on emptying leg bag, follow up with in 1 week. Continue care.
[2019-07-02 13:00] VITALS: BP 108/73
--- NOTE | 2019-07-02 13:42 | NUR ---
Nutrition Follow-up + CONSULT Notes Additional Recommendation: 1) Consider Prostat 1 pkt daily, daily MVi tab, 500 mg Vitamin C BID Wt.: 68.8 kg today Pt was in room with no relatives at bedside when rounded this morning. Pt stated appetite was good aeb avg PO intake of 78% x 10 meals. Current diet order is Cardiac diet 2g Na, Low Fat, Low Cholesterol. Estimated Needs: 1750 kcal to 2100 kcal (25-30 kcal/kgBW), 70 gms to 91 gms pro (1.0-1.2 gms/kgBW). Will continue to monitor pertinent labs and reassess nutrient needs prn Labs 06/29: Anion gap 3 L, BUN 25 H, Ca 8.1 L, Mg 2.7 H, AST 13 L, TP 5.3 L, Albumin 2.4 L Skin: Gerson scale 19, low risk, skin tears and scabs per admitting representative. GI: Pt had BM 06/30/19 per admitting representative. PES: 1) Altered nutrition related lab values RT acute/chronic medical condition AEB hyperchloremia, elev. BUN, hyperbilirubinemia, hypocalcemia and mod hypoalbuminemia Will continue to monitor PO intake, pertinent labs, skin status and weight trends. F/u in 3 to 5 days. Recommendations: 1) Continue close supervision and feeding assistance prn during meals. 2) Refer to RD for further nutrition education and weight monitoring upon discharge. 3) Continue current plan of care.
[2019-07-02 14:08] VITALS: BP 90/51
--- NOTE | 2019-07-02 15:40 | NUR ---
re-assessment Per consult [employer] [facility]. Belén RECIO gave patient a choice letter and patient has signed for [facility]. Per [facility] start of care will be 07/04/2019. Patient has been notified. Addendum: 07/02/19 at 1542 by Roxi Barrera Amended: Links added.
--- NOTE | 2019-07-02 15:52 | NUR ---
Discharge instructions given as ordered. Encourage to follow up with PMD as instructed. All questions and concerns addressed. Patient verbalized understanding. Medication reconciliation form completed and copy given to patient. No home medications held in Pharmacy, and no needed vaccines to be given. IV removed with catheter intact, pressure dressing applied, romano catheter changed to leg bag, pt and family educated on how to empty the leg bag. Telemetry unit returned to ICU.
--- NOTE | 2019-07-02 16:35 | NUR ---
Amy at bed side to pick pack worker pt to wheel pt out of the hospital, pt is shivering, pt is pale and looks very lethargic, v/s bp 66/46, O2 sat 77%, HR 55, temp 99.8, called RT to assess pt, called Dr. Morales to inform pt's current status, orders received to hold d/c and to give NS at 100 ml/hr.
[2019-07-02 16:50] VITALS: BP 158/103
--- NOTE | 2019-07-02 17:35 | NUR ---
Called and inform Dr. Morales to let him know that pt is has have 2 runs of Vtach and running A.fib at 150s, orders received for Tylenol, zithromax 500mg IV qday, chest x_ray, CBC, UA.
[2019-07-02] MEDS: SODIUM CHLORIDE 0.9% 1,000 ML IV SCH (17:47)
[2019-07-02] MEDS: AZITHROMYCIN 500MG/ 250ML 250 ML IV SCH (17:48)
[2019-07-02] MEDS: ACETAMINOPHEN 325 MG TAB PO PRN (17:48)
[2019-07-02] MEDS: RIVAROXABAN 20 MG TAB PO SCH (17:48)
--- NOTE | 2019-07-02 18:05 | NUR ---
Pt becoming confused X-ray tech at bed side, pt is taking off the nasal canula, at bed side, pt was refusing chest x-ray, pt agreed to have xray done, charge nurse informed pt will have a sitter at bed side.
[2019-07-02 18:24] LABS: Basophils # (auto) 0.1 10 ^3/uL (0-0.2); Basophils % (auto) 0.6 % (0.0-2.0); Eosinophils # (auto) 0.1 10 ^3/uL (0-0.8); Eosinophils % (auto) 0.6 % (0.0-7.0); Hematocrit 45.2 % (41.0-53.0); Hemoglobin 14.8 g/dL (13.5-17.5); Lymphocytes # (auto) 0.6 10 ^3/uL (0.4-5.4); Lymphocytes % (auto) 4.4 % (10.0-50.0); Mean Corpuscular Hemoglobin 30.5 pg (28.0-32.0); Mean Corpuscular Hgb Conc. 32.7 g/dL (32.0-36.0); Mean Corpuscular Volume 93.3 fL (80.0-100.0); Monocytes # (auto) 0.4 10 ^3/uL (0-1.3); Monocytes % (auto) 2.7 % (0.0-12.0); Neutrophils % (auto) 91.7 % (37.0-80.0); Nucleated Red Blood Cells % 0.1 %; Platelet Count (auto) 180 10^3/uL (140-450); Red Blood Cells 4.85 10^6/uL (4.5-5.90); Red Cell Distribution Width 14.7 % (11.8-14.3)
[2019-07-02 18:33] LABS: White Blood Cell 14.2 10^3/uL (4.4-10.8)
[2019-07-02 22:00] VITALS: BP 100/56
--- NOTE | 2019-07-02 23:22 | NUR ---
UA sent to lab Sample obtained from port on Jean-Baptiste after clamping tubing and cleaning port.
[2019-07-03] VITALS (7 sets, daily range): BP systolic 102–142; BP diastolic 64–94
[2019-07-03 00:36] LABS: Urine Bacteria FEW /hpf (None Seen); Urine Blood 1+ /uL (Negative); Urine Specific Gravity 1.011 (1.001-1.035); Urine WBC 1 /hpf (0 - 3)
[2019-07-03] MEDS: SODIUM CHLORIDE 0.9% 1,000 ML IV SCH ×2 (04:00→14:35)
[2019-07-03] MEDS: ACETAMINOPHEN 325 MG TAB PO PRN (06:49)
[2019-07-03] MEDS: cefTRIAXone 1GM/50ML D5W 50 ML IV SCH (08:36)
[2019-07-03] MEDS: MAGNESIUM OXIDE 400 MG TAB PO SCH ×2 (09:30→22:24)
[2019-07-03] MEDS: TAMSULOSIN HYDROCHLORIDE 0.4 MG CAP PO SCH ×2 (09:30→22:24)
[2019-07-03] MEDS: FINASTERIDE 5 MG TAB PO SCH (09:31)
[2019-07-03] MEDS: AZITHROMYCIN 500MG/ 250ML 250 ML IV SCH (09:31)
[2019-07-03] MEDS: SACUBITRIL-VALSARTAN 24mg/26mg TAB PO SCH ×2 (09:33→22:24)
[2019-07-03] MEDS: SOTALOL HCL 80 MG TAB PO SCH ×2 (09:33→22:24)
[2019-07-03] MEDS: KETOROLAC TROMETH 15 mg/ml 1ML VL IV PRN ×2 (10:40→20:57)
[2019-07-03] MEDS: Ensure HIGH Protein Chocolate 8oz Bottle PO SCH ×2 (12:46→18:07)
[2019-07-03] MEDS: RIVAROXABAN 20 MG TAB PO SCH (18:43)
--- NOTE | 2019-07-03 19:30 | NUR ---
Opening Shift Note Assumed care of patient, awake and alert x4. No S/S of distress/SOB or pain. Call light is within reach, side rails up x2, bed is in the lowest position, brakes are locked. O2 is infusing at 3 L/min via nasal cannula. Jean-Baptiste is in place and draining clear/yellow urine. Instructed on POC and to call for assist PRN. All questions and concerns answered, will continue to monitor for changes Q1hr and PRN.
--- NOTE | 2019-07-03 20:57 | NUR ---
Patient is complaining of pain 5/0-10 to the back. Toradol is available, will medicate as ordered.
[2019-07-03] MEDS ORDERED: BRIMONIDINE 0.2% OPTH Soln 5ml EACHEYE SCH (22:00)
[2019-07-03] MEDS ORDERED: BRIMONIDINE 0.1% OP SCH (22:00)
[2019-07-03] MEDS: BRIMONIDINE 0.1% OP SCH (22:23)
--- NOTE | 2019-07-03 23:00 | NUR ---
Pain reassessment Patient is resting in bed asleep, no S/S of distress or pain noted. Call light is within reach, bed alarm remains on. Will continue to monitor.
[2019-07-04] MEDS: SODIUM CHLORIDE 0.9% 1,000 ML IV SCH ×3 (00:29→19:45)
[2019-07-04 04:56] VITALS: BP 135/70
[2019-07-04 08:34] VITALS: BP 132/82
--- NOTE | 2019-07-04 09:34 | NUR ---
AMBULATING IN HALLWAY STEADY GAIT WITH PHYSICAL THERAPY USING A WALKER AND OXYGEN. NO SIGNS OF DISTRESS.
[2019-07-04] MEDS: cefTRIAXone 1GM/50ML D5W 50 ML IV SCH (10:15)
[2019-07-04] MEDS: Ensure HIGH Protein Chocolate 8oz Bottle PO SCH ×3 (10:15→17:36)
[2019-07-04] MEDS: AZITHROMYCIN 500MG/ 250ML 250 ML IV SCH (10:15)
[2019-07-04] MEDS: MAGNESIUM OXIDE 400 MG TAB PO SCH ×2 (10:16→21:51)
[2019-07-04] MEDS: SACUBITRIL-VALSARTAN 24mg/26mg TAB PO SCH ×2 (10:16→21:50)
[2019-07-04] MEDS: TAMSULOSIN HYDROCHLORIDE 0.4 MG CAP PO SCH ×2 (10:16→21:51)
[2019-07-04] MEDS: SOTALOL HCL 80 MG TAB PO SCH ×2 (10:16→21:50)
[2019-07-04] MEDS: FINASTERIDE 5 MG TAB PO SCH (10:16)
[2019-07-04 13:00] VITALS: BP 129/81
[2019-07-04] MEDS: BRIMONIDINE 0.1% OP SCH ×2 (14:44→21:50)
[2019-07-04 16:06] LABS: Basophils # (auto) 0 10 ^3/uL (0-0.2); Basophils % (auto) 0.3 % (0.0-2.0); Eosinophils # (auto) 0 10 ^3/uL (0-0.8); Eosinophils % (auto) 0.4 % (0.0-7.0); Hematocrit 39.9 % (41.0-53.0); Hemoglobin 13.3 g/dL (13.5-17.5); Lymphocytes # (auto) 1.3 10 ^3/uL (0.4-5.4); Lymphocytes % (auto) 15.5 % (10.0-50.0); Mean Corpuscular Hemoglobin 31.5 pg (28.0-32.0); Mean Corpuscular Hgb Conc. 33.3 g/dL (32.0-36.0); Mean Corpuscular Volume 94.5 fL (80.0-100.0); Monocytes % (auto) 12.3 % (0.0-12.0); Neutrophils # (auto) 6.1 10 ^3/uL (1.6-8.6); Neutrophils % (auto) 71.5 % (37.0-80.0); Platelet Count (auto) 138 10^3/uL (140-450); Red Blood Cells 4.22 10^6/uL (4.5-5.90); Red Cell Distribution Width 14.6 % (11.8-14.3); White Blood Cell 8.5 10^3/uL (4.4-10.8)
[2019-07-04 16:29] LABS: Albumin 2.3 g/dL (3.4-5.0); Potassium 4.7 mmol/L (3.5-5.1)
[2019-07-04 16:30] VITALS: BP 136/80
[2019-07-04 16:32] LABS: BUN/Creatinine Ratio 31.7; Bilirubin, Total 0.4 mg/dL (0.2-1.0); Total Protein 5.5 g/dL (6.4-8.2)
[2019-07-04] MEDS: RIVAROXABAN 20 MG TAB PO SCH (18:07)
--- NOTE | 2019-07-04 19:14 | NUR ---
report given to restaurant shift supervisor no signs of distress.
--- NOTE | 2019-07-04 19:30 | NUR ---
Opening Shift Note Assumed care of patient, awake and alert x4. No S/S of distress/SOB or pain. Jean-Baptiste is in place, hung below bladder, patent and draining. Call light is within reach, side rails up x2, bed is in the lowest position, brakes are locked, bed alarm is on. Instructed on POC and to call for assist PRN. All questions and concerns answered, will continue to monitor for changes Q1hr and PRN.
[2019-07-04 21:48] VITALS: BP 123/84
[2019-07-04 22:41] VITALS: BP 115/72
[2019-07-05 04:48] VITALS: BP 142/76
[2019-07-05] MEDS: SODIUM CHLORIDE 0.9% 1,000 ML IV SCH ×2 (06:51→18:16)
--- NOTE | 2019-07-05 07:54 | NUR ---
OPENING SHIFT NOTE Assumed care of patient. PT is awake and A&Ox4. Patient is hard of hearing. PT moved to room 76A. POC discussed. No s/s of distress at this time. Bed is in lowest, locked position, call light within reach, bed alarm on for safety. Will continue to monitor Q1h and PRN.
[2019-07-05 09:00] VITALS: BP 131/84
[2019-07-05] MEDS: Ensure HIGH Protein Chocolate 8oz Bottle PO SCH ×3 (09:08→18:16)
[2019-07-05] MEDS: cefTRIAXone 1GM/50ML D5W 50 ML IV SCH (09:09)
[2019-07-05] MEDS: FINASTERIDE 5 MG TAB PO SCH (09:10)
[2019-07-05] MEDS: TAMSULOSIN HYDROCHLORIDE 0.4 MG CAP PO SCH ×2 (09:10→21:23)
[2019-07-05] MEDS: MAGNESIUM OXIDE 400 MG TAB PO SCH ×2 (09:10→21:23)
[2019-07-05] MEDS: SACUBITRIL-VALSARTAN 24mg/26mg TAB PO SCH ×2 (09:11→12:15)
[2019-07-05] MEDS: BRIMONIDINE 0.1% OP SCH ×2 (09:11→22:00)
[2019-07-05] MEDS: SOTALOL HCL 80 MG TAB PO SCH ×2 (09:12→22:00)
[2019-07-05] MEDS: AZITHROMYCIN 500MG/ 250ML 250 ML IV SCH (10:30)
[2019-07-05] MEDS ORDERED: DIGOXIN 0.125 MG TAB PO ONE (12:15)
[2019-07-05 13:00] VITALS: BP 118/66
[2019-07-05 17:00] VITALS: BP 124/69
[2019-07-05] MEDS: RIVAROXABAN 20 MG TAB PO SCH (18:16)
[2019-07-05 20:00] VITALS: BP 131/84
[2019-07-05 22:00] VITALS: BP 126/54
[2019-07-05] MEDS: ACETAMINOPHEN 325 MG TAB PO PRN (23:49)
[2019-07-06] MEDS: SODIUM CHLORIDE 0.9% 1,000 ML IV SCH ×3 (01:45→21:54)
[2019-07-06 02:00] VITALS: BP 117/69
--- NOTE | 2019-07-06 04:04 | NUR ---
PT ASSISTED TO BEDSIDE COMMODE.PASSING GAS BUT NO STOOL PRODUCED.BACK IN BED WITH ASSISTANCE. TOLERATED WELL.
[2019-07-06 05:00] VITALS: BP 143/78
--- NOTE | 2019-07-06 07:36 | NUR ---
OPENING SHIFT NOTE Resumed care of patient. PT is awake and A&O x4. POC discussed with PT. Patient is hard of hearing. No s/s of distress at this time. Bed is in lowest, locked position, call light within reach, bed alarm on for safety. Will continue to monitor Q1h and PRN.
[2019-07-06 08:21] VITALS: BP 147/80
[2019-07-06] MEDS: Ensure HIGH Protein Chocolate 8oz Bottle PO SCH ×3 (08:45→18:14)
[2019-07-06] MEDS: MAGNESIUM OXIDE 400 MG TAB PO SCH ×2 (09:17→21:54)
[2019-07-06] MEDS: SACUBITRIL-VALSARTAN 24mg/26mg TAB PO SCH (09:17)
[2019-07-06] MEDS: TAMSULOSIN HYDROCHLORIDE 0.4 MG CAP PO SCH ×2 (09:18→21:54)
[2019-07-06] MEDS: SOTALOL HCL 80 MG TAB PO SCH ×2 (09:18→21:54)
[2019-07-06] MEDS: FINASTERIDE 5 MG TAB PO SCH (09:18)
[2019-07-06] MEDS: BRIMONIDINE 0.1% OP SCH ×2 (09:19→21:55)
[2019-07-06] MEDS: DIGOXIN 0.125 MG TAB PO SCH (09:19)
[2019-07-06] MEDS: AZITHROMYCIN 500MG/ 250ML 250 ML IV SCH (09:19)
--- NOTE | 2019-07-06 12:18 | NUR ---
Pt was able to dre well to ambulation, pt did need to take a rest when started to feel SOB. Pt's O2 level was increased to level 6 and was told to take slow deep breaths to help regulate breathing, pt understood Addendum: 07/06/19 at 1221 by Asia Diaz PT Amended: Links added.
[2019-07-06 12:30] VITALS: BP 110/65
[2019-07-06 17:03] VITALS: BP 126/76
[2019-07-06] MEDS: RIVAROXABAN 20 MG TAB PO SCH (18:14)
[2019-07-06 22:00] VITALS: BP 130/69
[2019-07-07 06:00] VITALS: BP 128/78
[2019-07-07] MEDS: ACETAMINOPHEN 325 MG TAB PO PRN (06:13)
[2019-07-07] MEDS: Ensure HIGH Protein Chocolate 8oz Bottle PO SCH ×3 (07:59→18:34)
[2019-07-07] MEDS: SODIUM CHLORIDE 0.9% 1,000 ML IV SCH ×2 (07:59→18:34)
--- NOTE | 2019-07-07 08:00 | NUR ---
OPENING SHIFT NOTE Assumed care of patient. PT is awake and A&O x4. POC discussed with PT. Will contact DR Morales regarding plan of discharge. No s/s of distress at this time. Bed is in lowest, locked position, call light within reach, bed alarm on for safety. Will continue to monitor Q1h and PRN.
[2019-07-07 09:00] VITALS: BP 133/81
[2019-07-07] MEDS: AZITHROMYCIN 500MG/ 250ML 250 ML IV SCH (11:39)
[2019-07-07] MEDS: BRIMONIDINE 0.1% OP SCH ×2 (11:40→21:35)
[2019-07-07] MEDS: SOTALOL HCL 80 MG TAB PO SCH ×2 (11:40→21:35)
[2019-07-07] MEDS: MAGNESIUM OXIDE 400 MG TAB PO SCH ×2 (11:41→21:35)
[2019-07-07] MEDS: TAMSULOSIN HYDROCHLORIDE 0.4 MG CAP PO SCH ×2 (11:41→21:35)
[2019-07-07] MEDS: SACUBITRIL-VALSARTAN 24mg/26mg TAB PO SCH (11:41)
[2019-07-07] MEDS: FINASTERIDE 5 MG TAB PO SCH (11:42)
[2019-07-07] MEDS: DIGOXIN 0.125 MG TAB PO SCH (11:42)
[2019-07-07 12:29] VITALS: BP 147/74
[2019-07-07 17:12] VITALS: BP 123/78
[2019-07-07] MEDS: RIVAROXABAN 20 MG TAB PO SCH (18:35)
[2019-07-07 22:00] VITALS: BP 128/74
[2019-07-08] MEDS: ACETAMINOPHEN 325 MG TAB PO PRN (03:00)
[2019-07-08] MEDS: SODIUM CHLORIDE 0.9% 1,000 ML IV SCH ×3 (03:00→23:45)
[2019-07-08 05:00] VITALS: BP 121/72
[2019-07-08] MEDS: Ensure HIGH Protein Chocolate 8oz Bottle PO SCH ×3 (08:00→18:00)
--- NOTE | 2019-07-08 08:00 | NUR ---
Morning note patient resting in bed with even and unlabored respirations 4 LPM NC, no distress noted. Instructed patient on POC, fall precautions and to call for assistance as needed. Patient verbalized understanding. Fall precautions in place with call light within reach. Patient's personal cane at bedside.
[2019-07-08 09:00] VITALS: BP 146/71
[2019-07-08] MEDS: TAMSULOSIN HYDROCHLORIDE 0.4 MG CAP PO SCH ×2 (09:15→21:53)
[2019-07-08] MEDS: AZITHROMYCIN 500MG/ 250ML 250 ML IV SCH (09:15)
[2019-07-08] MEDS: FINASTERIDE 5 MG TAB PO SCH (09:17)
[2019-07-08] MEDS: DIGOXIN 0.125 MG TAB PO SCH (09:17)
[2019-07-08] MEDS: MAGNESIUM OXIDE 400 MG TAB PO SCH ×2 (09:18→21:52)
[2019-07-08] MEDS: SACUBITRIL-VALSARTAN 24mg/26mg TAB PO SCH (09:18)
[2019-07-08] MEDS: SOTALOL HCL 80 MG TAB PO SCH ×2 (09:19→21:53)
[2019-07-08] MEDS: BRIMONIDINE 0.1% OP SCH ×2 (09:24→22:01)
--- NOTE | 2019-07-08 10:31 | NUR ---
IV removal/IV insertion IV DC'd with clean technique, catheter fully intact. Dressing applied to site. Patient tolerated procedure well, no trauma noted. IV access obtained, via clean technique by inserting 20 gauge catheter at LAC after one attempt. IV secured properly. No trauma to site. Patient tolerated procedure well. Fall Precautions in place with the bed in the lowest position and call light within reach. Signed: 07/08/19 at 1038 by FILOMENA TODD <Co-Signature Required> Co-Signed: 07/08/19 at 1038 by Lora Barrera RN
[2019-07-08] MEDS ORDERED: IOHEXOL 350 MG/ML 100ML IJ ONE ×2 (12:39→14:01)
[2019-07-08] MEDS ORDERED: LIDOCAINE 2%HCL (LOCAL ANESTH.) INJ 20ML MDV ONE (12:39)
[2019-07-08 12:58] VITALS: BP 119/74
--- NOTE | 2019-07-08 12:59 | NUR ---
Patient transferred to pipelines laborer via hospital bed. Respirations even and unlabored on 4 LPM NC, no distress noted. IV is patent with no s/s of phlebitis, infiltration and/or leaking. casting house laborer RNBethel, notified that patient consumed lunch meal. Patient's spouse updated on POC.
[2019-07-08 13:12] LABS: Basophils # (auto) 0 10 ^3/uL (0-0.2); Basophils % (auto) 0.5 % (0.0-2.0); Eosinophils # (auto) 0.1 10 ^3/uL (0-0.8); Eosinophils % (auto) 1.2 % (0.0-7.0); Hematocrit 37.7 % (41.0-53.0); Hemoglobin 12.8 g/dL (13.5-17.5); Lymphocytes # (auto) 1.5 10 ^3/uL (0.4-5.4); Lymphocytes % (auto) 21.2 % (10.0-50.0); Mean Corpuscular Hemoglobin 31.5 pg (28.0-32.0); Mean Corpuscular Volume 92.6 fL (80.0-100.0); Monocytes # (auto) 0.6 10 ^3/uL (0-1.3); Monocytes % (auto) 8.2 % (0.0-12.0); Neutrophils # (auto) 4.7 10 ^3/uL (1.6-8.6); Neutrophils % (auto) 68.9 % (37.0-80.0); Nucleated Red Blood Cells % 0.1 %; Platelet Count (auto) 148 10^3/uL (140-450); Red Blood Cells 4.07 10^6/uL (4.5-5.90); Red Cell Distribution Width 14.1 % (11.8-14.3); White Blood Cell 6.9 10^3/uL (4.4-10.8)
[2019-07-08 13:25] LABS: BUN/Creatinine Ratio 22.4; Calcium 8.4 mg/dL (8.5-10.1); Potassium 4.2 mmol/L (3.5-5.1)
[2019-07-08 13:26] LABS: INR 1.21 (0.9-1.15)
--- NOTE | 2019-07-08 13:29 | NUR ---
RE: Intervention Patient off unit at scheduled procedure. Addendum: 07/08/19 at 1420 by Lora Barrera RN Amended: Links added.
[2019-07-08] MEDS ORDERED: ANGIOMAX 250 MG VIAL IV ONE (13:30)
[2019-07-08] MEDS ORDERED: SODIUM CHL 0.9% 0 ML ONE (13:31)
[2019-07-08] MEDS ORDERED: fentaNYL CITRATE 100 MCG/2 ML VL ONE (13:31)
[2019-07-08] MEDS ORDERED: MIDAZOLAM HCL 1MG/1ML-2 ML VIAL ONE (13:31)
--- NOTE | 2019-07-08 13:45 | NUR ---
Medication held Scheduled IV NS held due to mild rhonci lung sounds. Respirations even and unlabored on 4LPM NC, no distress noted.
--- NOTE | 2019-07-08 13:53 | NUR ---
PT AM VISIT PATIENT REFUSED ASKED TO COME BACK AFTER LUNCH, PM VISIT PATIENT IN COMMERCIAL PLUMBER. Addendum: 07/08/19 at 1353 by KEITH VELAZCO PTT Amended: Links added.
[2019-07-08] MEDS: RIVAROXABAN 20 MG TAB PO SCH (15:23)
--- NOTE | 2019-07-08 15:29 | NUR ---
RE: intervention patient off unit at scheduled procedure. Addendum: 07/08/19 at 1616 by Lora Barrera RN Amended: Links added.
--- NOTE | 2019-07-08 16:05 | NUR ---
Patient returned to unit from casting house laborer via hospital bed. Respirations even and unlabored on 4LPM NC, no distress noted. Catheterization site assessed for any bleeding, redness or swelling. Angio-seal device in place. Dressing to the right groin is clean, dry and intact with no bleeding, redness or swelling noted. Pedal pulses on affected leg assessed for positive tissue perfusion. Patient instructed on need to notify staff immediately if any pain, burning or wetness to site, and any lower back pain. Patient verbalized understanding. Patient instructed to remain in a flat position until 1700. Patient verbalized understanding. Bed alarm on for safety. Call light within reach. Patient's spouse at bedside. See notes for any further.
--- NOTE | 2019-07-08 16:52 | NUR ---
Patient resting in bed Respirations even and unlabored on 4LPM NC, no distress noted. Catheterization site assessed for any bleeding, redness or swelling. Angio-seal device in place. Dressing to the right groin is clean, dry and intact with no bleeding, redness or swelling noted. Pedal pulses on affected leg assessed for positive tissue perfusion. Patient instructed on need to notify staff immediately if any pain, burning or wetness to site, and any lower back pain. Patient verbalized understanding.
[2019-07-08 17:00] VITALS: BP 127/67
--- NOTE | 2019-07-08 18:04 | NUR ---
Patient placed in semi-fowlers position Catheterization site assessed for any bleeding, redness or swelling. Angio-seal device in place. Dressing to the right groin is clean, dry and intact with no bleeding, redness or swelling noted. Pedal pulses on affected leg assessed for positive tissue perfusion. Patient instructed on need to notify staff immediately if any pain, burning or wetness to site, and any lower back pain. Patient verbalized understanding. Respirations even and unlabored on 4LPM NC, no distress noted. Fall precautions in place with call light within reach. Patient's spouse at bedside.
--- NOTE | 2019-07-08 18:52 | NUR ---
Closing note patient resting in bed with even and unlabored respirations on 4LPM NC, no distress noted. Fall precautions in place with call light within reach. Bed alarm on for safety. Right groin is clean, dry and intact with no bleeding, redness, or swelling noted. Patient able to turn self independently. Jean-Baptiste catheter is patent and draining to gravity per MD order.
--- NOTE | 2019-07-08 19:16 | NUR ---
Care endorsed to DHRUV Stone.
--- NOTE | 2019-07-08 19:25 | NUR ---
Opening Shift Note Assumed care of patient, awake and alert. No S/S of distress/SOB or pain. The bed is locked in the lowest position with the call light within reach. Instructed on POC and to call for assist PRN, will continue to monitor for changes Q1hr and PRN.
--- NOTE | 2019-07-09 07:57 | NUR ---
RECEIVED REPORT AND ASSUMED CARE OF PT. A/OX4. DENIED S/S ACUTE DISTRESS. UPDATE PT WITH POC. BED AT LOWEST POSITION. CALL LIGHT AND BELONGINGS WITHIN REACH. WILL CONT TO MONITOR.
[2019-07-09 09:00] VITALS: BP 137/81
[2019-07-09] MEDS: SOTALOL HCL 80 MG TAB PO SCH ×2 (09:26→22:45)
[2019-07-09] MEDS: MAGNESIUM OXIDE 400 MG TAB PO SCH ×2 (09:27→22:00)
[2019-07-09] MEDS: DIGOXIN 0.125 MG TAB PO SCH (09:27)
[2019-07-09] MEDS: SACUBITRIL-VALSARTAN 24mg/26mg TAB PO SCH (09:27)
[2019-07-09] MEDS: TAMSULOSIN HYDROCHLORIDE 0.4 MG CAP PO SCH ×2 (09:27→22:45)
[2019-07-09] MEDS: FINASTERIDE 5 MG TAB PO SCH (09:28)
[2019-07-09] MEDS: AZITHROMYCIN 500MG/ 250ML 250 ML IV SCH (09:28)
[2019-07-09] MEDS: Ensure HIGH Protein Chocolate 8oz Bottle PO SCH ×3 (09:29→18:06)
[2019-07-09] MEDS: SODIUM CHLORIDE 0.9% 1,000 ML IV SCH ×2 (09:29→16:38)
[2019-07-09] MEDS: BRIMONIDINE 0.1% OP SCH ×2 (09:35→22:44)
[2019-07-09 13:00] VITALS: BP 95/56
--- NOTE | 2019-07-09 14:42 | NUR ---
Nutrition Follow-up Notes Wt.: 69.5 kg today Pt was not on floor d/t medical procedure when rounded this morning. Pt appetite is fair aeb ave 50% x 4 PO intake per RN doc. Current diet order is Cardiac diet 2g Na, Low Fat, Low Cholesterol. Pt noted to be in no distress per RN doc. Will continue to monitor and followup prn. Estimated Needs: 1750 kcal to 2100 kcal (25-30 kcal/kgBW), 70 gms to 91 gms pro (1.0-1.2 gms/kgBW). Will continue to monitor pertinent labs and reassess nutrient needs prn Labs 06/29: Cl 108 H, Gluc 133 H, Ca 8.4 L, Albumin 2.3 L Skin: Gerson scale 20, low risk, healing abrasion per tinter photograph. GI: Pt had BM 07/07/19 per tinter photograph. PES: 1) Altered nutrition related lab values RT acute/chronic medical condition AEB hyperchloremia, elev. BUN, hyperbilirubinemia, hypocalcemia and mod hypoalbuminemia Will continue to monitor PO intake, pertinent labs, skin status and weight trends. F/u in 3 to 5 days. Recommendations: 1) Continue close supervision and feeding assistance prn during meals. 2) Refer to RD for further nutrition education and weight monitoring upon discharge. 3) Continue current plan of care. Additional Recommendation: 1) Consider Prostat 1 pkt daily, daily MVi tab, 500 mg Vitamin C BID
[2019-07-09] MEDS: RIVAROXABAN 20 MG TAB PO SCH (18:06)
[2019-07-09 18:21] VITALS: BP 130/76
--- NOTE | 2019-07-09 19:05 | NUR ---
A/OX4. DENIED S/S ACUTE DISTRESS. ENDORSED CARE TO NIGHT NURSE.
[2019-07-09 22:00] VITALS: BP 116/76
--- NOTE | 2019-07-10 02:58 | NUR ---
PAIN ASSESSMENT Per DIRECTOR SPEECH AND HEARING, the patient was requesting pain medication for his back pain. Upon assessment the patient reported 3/10 back pain. Will treat with PRN Acetaminophen.
[2019-07-10] MEDS: ACETAMINOPHEN 325 MG TAB PO PRN (03:03)
[2019-07-10 04:00] VITALS: BP 121/74
--- NOTE | 2019-07-10 04:05 | NUR ---
PAIN REASSESSMENT The patient is resting comfortably in bed and reports that his back pain has improved to a 0/10.
[2019-07-10] MEDS: SODIUM CHLORIDE 0.9% 1,000 ML IV SCH ×2 (07:09→15:45)
--- NOTE | 2019-07-10 07:20 | NUR ---
Opening Shift Note Assumed care of patient. Patient A&Ox4, respirations even and non-labored without s/s of distress. Dressings to right and left arms clean, dry, and intact. IV flush, patent, and intact. Jean-Baptiste draining 200 mL of clear, yellow urine. Discussed POC/goals with the patient. Bed in lowest position, wheels locked, and side rails up x2. Will continue to monitor.
[2019-07-10 08:00] VITALS: BP 127/85
[2019-07-10] MEDS: Ensure HIGH Protein Chocolate 8oz Bottle PO SCH ×2 (08:00→18:57)
[2019-07-10 09:00] VITALS: BP 127/85
[2019-07-10] MEDS: BRIMONIDINE 0.1% OP SCH ×2 (09:41→21:52)
[2019-07-10] MEDS: DIGOXIN 0.125 MG TAB PO SCH (09:43)
[2019-07-10] MEDS: MAGNESIUM OXIDE 400 MG TAB PO SCH ×2 (09:44→21:53)
[2019-07-10] MEDS: SOTALOL HCL 80 MG TAB PO SCH ×2 (09:44→21:52)
[2019-07-10] MEDS: SACUBITRIL-VALSARTAN 24mg/26mg TAB PO SCH (09:45)
[2019-07-10] MEDS: FINASTERIDE 5 MG TAB PO SCH (09:45)
[2019-07-10] MEDS: TAMSULOSIN HYDROCHLORIDE 0.4 MG CAP PO SCH ×2 (09:45→21:52)
--- NOTE | 2019-07-10 16:10 | NUR ---
Dr. Morales has requested Discharge to be held until tomorrow 07/11/19 due to the heavy rain outside. Patient and informed/aware.
[2019-07-10] MEDS: RIVAROXABAN 20 MG TAB PO SCH (19:27)
[2019-07-10 20:05] VITALS: BP 146/76
--- NOTE | 2019-07-10 20:05 | NUR ---
Opening Shift Note Assumed care of patient, awake and alert. No S/S of distress/SOB or pain. Patient is on 2 liters of oxygen via nasal cannula. Patient's Jean-Baptiste bag is below the level of the bladder and is patent/draining clear, yellow urine. Dressing to right arm skin tear, to left hand skin tear, and to left elbow skin tear clean, dry, and intact. Patient's dressing to right groin is clean, dry, and intact. Instructed on POC and to call for assist PRN, will continue to monitor for changes Q1hr and PRN.
--- NOTE | 2019-07-10 20:06 | NUR ---
Patient refuses dressing change to right arm skin tear and to left hand skin tear. Patient educated dressing changes help to prevent wounds from becoming infected. Patient verbalized understanding. Patient continues to refuse dressing changes and states they are not infected. Patient states they are scabbed now.
[2019-07-10 22:00] VITALS: BP 146/76
[2019-07-10 22:52] VITALS: BP 149/77
[2019-07-11] MEDS: SODIUM CHLORIDE 0.9% 1,000 ML IV SCH ×2 (00:50→11:45)
[2019-07-11 05:00] VITALS: BP 158/83
--- NOTE | 2019-07-11 05:00 | NUR ---
Jean-Baptiste care done at this time using Jean-Baptiste care wipes. Patient tolerated well.
[2019-07-11 05:10] VITALS: BP 134/97
--- NOTE | 2019-07-11 05:10 | NUR ---
Blood pressure reassessed and is 134/97, HR of 88. Patient asymptomatic.
--- NOTE | 2019-07-11 06:41 | NUR ---
Skin tear to left elbow cleansed with wound cleanser and pat dry with 4x4 gauze. Skin tear has no signs of infection. New Optifoam applied. Patient tolerated well.
--- NOTE | 2019-07-11 07:00 | NUR ---
CLOSING NOTE No S/S of distress/SOB or pain. Patient is on 2 liters of oxygen via nasal cannula. Patient's Jean-Baptiste bag is below the level of the bladder and is patent/draining clear, yellow urine. Dressing to right arm skin tear, to left hand skin tear, and to left elbow skin tear clean, dry, and intact. Patient's dressing to right groin is clean, dry, and intact.
--- NOTE | 2019-07-11 07:33 | NUR ---
Opening Shift Note Assumed care of patient, awake and alert. No S/S of distress/SOB or pain. Instructed on POC and to call for assist PRN. Bed at lowest locked position and call light within reach. Will continue to monitor for changes Q1hr and PRN.
[2019-07-11 08:00] VITALS: BP 159/100
[2019-07-11] MEDS: MAGNESIUM OXIDE 400 MG TAB PO SCH (08:47)
[2019-07-11] MEDS: SACUBITRIL-VALSARTAN 24mg/26mg TAB PO SCH (08:47)
[2019-07-11] MEDS: TAMSULOSIN HYDROCHLORIDE 0.4 MG CAP PO SCH (08:47)
[2019-07-11] MEDS: SOTALOL HCL 80 MG TAB PO SCH (08:47)
[2019-07-11] MEDS: FINASTERIDE 5 MG TAB PO SCH (08:48)
[2019-07-11] MEDS: DIGOXIN 0.125 MG TAB PO SCH (08:48)
[2019-07-11] MEDS: Ensure HIGH Protein Chocolate 8oz Bottle PO SCH ×2 (08:49→14:07)
[2019-07-11] MEDS: BRIMONIDINE 0.1% OP SCH (08:49)
[2019-07-11 09:00] VITALS: BP 159/100
[2019-07-11 09:34] VITALS: BP 159/100
--- NOTE | 2019-07-11 10:01 | NUR ---
called in medication prescribed medication to [facility].
--- NOTE | 2019-07-11 10:17 | NUR ---
Called patient's Renate and informed her that patient is discharged. She stated " i will be leaving soon".
--- NOTE | 2019-07-11 11:08 | NUR ---
paged pastoral worker Roxi Barrera regarding home health with [facility]. Awaiting call back.
--- NOTE | 2019-07-11 12:10 | NUR ---
Wound pictures taken. Wounds to right upper extremity and left upper extremity cleansed and dressed. Patient tolerated well. at bedside.
--- NOTE | 2019-07-11 13:00 | NUR ---
Patient had a BM, assisted patient with cleaning. Patient tolerated well.
--- NOTE | 2019-07-11 13:47 | NUR ---
Discharge instructions given as ordered. Encourage to follow up with PMD as instructed. All questions and concerns addressed. Patient verbalized understanding. Medication reconciliation form completed and copy given to patient. Home medications held in Pharmacy returned to patient. IV removed with catheter intact, pressure dressing applied. Patient sent home with Jean-Baptiste catheter and leg bag. Patient and educated on care of Jean-Baptiste. Telemetry unit returned to ICU. Patient taken to [facility] via wheelchair with all personal belongings, accompanied by staff and member. Patient refusing to put his oxygen on. Patient educated on importance of O2. Patient and verbalized understanding .No distress noted at time of departure.
== END 2019-07-11 13:20 | disposition home health service (06) | DRG 286 ==
LOC: TELE-WESTW 17:19
PROVIDERS: ADMIT Internal Medicine Cardiovascular Disease; ATTEND Internal Medicine Cardiovascular Disease
PROC: 5A2204Z Restoration of Cardiac Rhythm, Single (ICD-10-PCS; 2019-06-25)
PROC: 4A023N7 Measurement of Cardiac Sampling and Pressure, Left Heart, Percutaneous Approach (ICD-10-PCS; principal; 2019-07-08)
PROC: B2111ZZ Fluoroscopy of Multiple Coronary Arteries using Low Osmolar Contrast (ICD-10-PCS; 2019-07-08)
PROC: B2181ZZ Fluoroscopy of Left Internal Mammary Bypass Graft using Low Osmolar Contrast (ICD-10-PCS; 2019-07-08)
PROC: B2131ZZ Fluoroscopy of Multiple Coronary Artery Bypass Grafts using Low Osmolar Contrast (ICD-10-PCS; 2019-07-08)
PROC: B2151ZZ Fluoroscopy of Left Heart using Low Osmolar Contrast (ICD-10-PCS; 2019-07-08)
DX: I48.91 Unspecified atrial fibrillation (principal); A41.9 Sepsis, unspecified organism; J96.91 Respiratory failure, unspecified with hypoxia; N39.0 Urinary tract infection, site not specified; I50.30 Unspecified diastolic (congestive) heart failure; D68.69 Other thrombophilia; N13.8 Other obstructive and reflux uropathy; I25.10 Atherosclerotic heart disease of native coronary artery without angina pectoris; J44.9 Chronic obstructive pulmonary disease, unspecified; I49.5 Sick sinus syndrome; Z82.49 Family history of ischemic heart disease and other diseases of the circulatory system; I10 Essential (primary) hypertension; N40.1 Benign prostatic hyperplasia with lower urinary tract symptoms; R33.8 Other retention of urine; I11.0 Hypertensive heart disease with heart failure; Z95.1 Presence of aortocoronary bypass graft; Z95.0 Presence of cardiac pacemaker; Z88.0 Allergy status to penicillin
CPT/HCPCS: 36415; 36600; 71045; 74018; 80048; 80053; 80162; 81001; 82805; 83735; 85025; 85610; 85730; 86850; 86900; 86901; 92960; 93005; 93459; 96360; 97110; 97116; 97163; 97530; 99152; G0378; G0463; J0696; J1885; J2250

== ENCOUNTER 2019-07-18 17:17 | Inpatient (IN) | payer MEDICARE, OTHER ==
[~2019-07-18] VITALS: Ht 172.7 cm; Wt 60.7 kg
[~2019-07-18 17:17] MED LIST changes: -DEXL60CA3 PO; +DEXL60CA4 PO; -FURO1TAB33 GT; -WARF4TAB PO; +WARF4TAB2 PO
[2019-07-18 18:31] LABS: Basophils # (auto) 0.1 10 ^3/uL (0-0.2); Basophils % (auto) 0.7 % (0.0-2.0); Eosinophils # (auto) 0 10 ^3/uL (0-0.8); Eosinophils % (auto) 0.3 % (0.0-7.0); Hematocrit 42.3 % (41.0-53.0); Hemoglobin 14.4 g/dL (13.5-17.5); Lymphocytes # (auto) 1.3 10 ^3/uL (0.4-5.4); Lymphocytes % (auto) 11.4 % (10.0-50.0); Mean Corpuscular Hemoglobin 31.6 pg (28.0-32.0); Mean Corpuscular Volume 92.8 fL (80.0-100.0); Monocytes # (auto) 1.2 10 ^3/uL (0-1.3); Monocytes % (auto) 10.9 % (0.0-12.0); Neutrophils # (auto) 8.5 10 ^3/uL (1.6-8.6); Neutrophils % (auto) 76.7 % (37.0-80.0); Nucleated Red Blood Cells % 0.1 %; Platelet Count (auto) 214 10^3/uL (140-450); Red Blood Cells 4.55 10^6/uL (4.5-5.90); White Blood Cell 11.1 10^3/uL (4.4-10.8)
[2019-07-18 18:41] LABS: Urine Blood 3+ /uL (Negative); Urine Mucus MODERATE (None Seen); Urine WBC 13 /hpf (0 - 3)
[2019-07-18 19:11] LABS: Urine Specific Gravity 1.023 (1.001-1.035)
[2019-07-18 19:18] LABS: Urine Bacteria FEW /hpf (None Seen)
[2019-07-18] MEDS ORDERED: MORPHINE SULF INJ 2 MG/ML SYRINGE 1ML IV PRN (20:00)
[2019-07-18] MEDS ORDERED: NITROGLYCERIN 0.4 MG SL TAB SL PRN (20:00)
[2019-07-18 20:21] VITALS: BP 154/90
[2019-07-18] MEDS: AMIODARONE HCL 200 MG TAB PO SCH (21:56)
[2019-07-18] MEDS: TAMSULOSIN HYDROCHLORIDE 0.4 MG CAP PO SCH (21:57)
[2019-07-18] MEDS: METOPROLOL SUCCINATE XL 50 MG TAB PO SCH (21:58)
[2019-07-18] MEDS ORDERED: BUDESONIDE (INHALATION) 0.5 MG/2 ML NEB NEB SCH (22:00)
[2019-07-18] MEDS: ALBUTEROL SULF 2.5 MG/0.5ML(0.5%) NEB SOLN NEB SCH (22:06)
[2019-07-18] MEDS: BUDESONIDE (INHALATION) 0.5 MG/2 ML NEB NEB SCH (22:06)
--- NOTE | 2019-07-18 22:07 | NUR ---
RT NOTE PT WAS SEEN BY RT FOR HHN TX IN THE ER. PT TOLERATES WELL VIA MASK. NO ADVERSE REACTION NOTED. CONT ORDERED Addendum: 07/18/19 at 2208 by Mitzy García RT Amended: Links added.
--- NOTE | 2019-07-18 22:59 | NUR ---
Telemetry admit from ER Patient admitted to Telemetry unit after SBAR received from Nancy BARTLETT. Patient oriented to primary RN, unit, room, bed, and unit policies regarding patient care and visiting hours. Patient now on continuous telemetry monitoring, tele box # 54 and telemetry reading on arrival to unit is HR 92. Patient is sleepy, but alert and oriented X 4. Patient weighed by bed scale and encouraged to call if they need something. Bed is low, locked, with two side rails raised, and call bailey is within reach. All questions and concerns addressed, patient verbalized understanding.
[2019-07-18 23:00] VITALS: BP 143/72
[2019-07-19 05:21] VITALS: BP 162/88
[2019-07-19] MEDS: ALBUTEROL SULF 2.5 MG/0.5ML(0.5%) NEB SOLN NEB SCH ×3 (06:51→22:11)
[2019-07-19] MEDS: BUDESONIDE (INHALATION) 0.5 MG/2 ML NEB NEB SCH ×2 (06:51→22:11)
--- NOTE | 2019-07-19 07:45 | NUR ---
OPENING SHIFT NOTE Assumed care of patient. PT is awake and alert. No S/S of distress/SOB or pain. PT is hard of hearing. Call light is within reach, side rails up x2, with bed in lowest position. Instructed on POC and to call for assist PRN, will continue to monitor for changes Q1hr and PRN.
[2019-07-19 09:00] VITALS: BP 127/72
[2019-07-19] MEDS: levoFLOXacin 500MG 100 ML IV SCH (09:39)
[2019-07-19] MEDS: FUROSEMIDE 20 MG TAB PO SCH (09:40)
[2019-07-19] MEDS: POTASSIUM CHL 20 Meq TABLET PO SCH (09:40)
[2019-07-19] MEDS: TAMSULOSIN HYDROCHLORIDE 0.4 MG CAP PO SCH ×2 (09:40→23:16)
[2019-07-19] MEDS: METOPROLOL SUCCINATE XL 50 MG TAB PO SCH ×2 (09:41→23:17)
[2019-07-19] MEDS: RIVAROXABAN 10 MG TAB PO SCH (09:42)
[2019-07-19] MEDS: AMIODARONE HCL 200 MG TAB PO SCH ×2 (09:42→23:16)
[2019-07-19] MEDS: FINASTERIDE 5 MG TAB PO SCH (09:42)
--- NOTE | 2019-07-19 12:07 | NUR ---
REPLACED LEG COLLECTION BAG WITH CUEVAS CATHETER BAG. PER DR TAVERAS'S ORDERS. PT TOLERATED WELL. URINE FLOWING AND COLLECTING INTO BAG. WILL CONTINUE TO MONITOR.
--- NOTE | 2019-07-19 12:28 | NUR ---
MRSA SWAB COLLECTED AND SENT TO LAB.
[2019-07-19 13:00] VITALS: BP 147/74
[2019-07-19 17:00] VITALS: BP 123/82
[2019-07-19 20:00] VITALS: BP 127/72
[2019-07-19 22:04] VITALS: BP 141/70
--- NOTE | 2019-07-20 02:10 | NUR ---
PT ASSISTED OOB TO BSC.PASSING GAS;NO BOWEL MOVEMENT. ASSISTED BACK TO BED. NO DISTRESS OBSERVED.
[2019-07-20] MEDS: ALBUTEROL SULF 2.5 MG/0.5ML(0.5%) NEB SOLN NEB SCH ×3 (06:28→22:23)
[2019-07-20] MEDS: BUDESONIDE (INHALATION) 0.5 MG/2 ML NEB NEB SCH ×2 (06:28→22:23)
--- NOTE | 2019-07-20 07:31 | NUR ---
OPENING SHIFT NOTE Resumed care of patient. PT is awake and alert. Assisted pt with tangled F/C and reconnected tele monitor. No S/S of distress/SOB or pain. PT is hard of hearing. Call light is within reach, side rails up x2, with bed in lowest position. Instructed on POC and to call for assist PRN, will continue to monitor for changes Q1hr and PRN.
[2019-07-20 08:51] VITALS: BP 148/82
[2019-07-20] MEDS: levoFLOXacin 500MG 100 ML IV SCH (09:16)
[2019-07-20] MEDS: RIVAROXABAN 10 MG TAB PO SCH (09:17)
[2019-07-20] MEDS: AMIODARONE HCL 200 MG TAB PO SCH ×2 (09:17→21:27)
[2019-07-20] MEDS: POTASSIUM CHL 20 Meq TABLET PO SCH (09:17)
[2019-07-20] MEDS: FINASTERIDE 5 MG TAB PO SCH (09:19)
[2019-07-20] MEDS: METOPROLOL SUCCINATE XL 50 MG TAB PO SCH ×2 (09:19→21:28)
[2019-07-20] MEDS: TAMSULOSIN HYDROCHLORIDE 0.4 MG CAP PO SCH ×2 (09:19→21:28)
[2019-07-20] MEDS: FUROSEMIDE 20 MG TAB PO SCH (09:19)
[2019-07-20 12:30] VITALS: BP 128/77
[2019-07-20] MEDS ORDERED: LACTULOSE 20Gm/30ML SOLN PO PRN (14:00)
--- NOTE | 2019-07-20 14:59 | NUR ---
SPOKE WITH DR ALMAZAN. STATED HE WOULD BE IN TO SEE PT TOMORROW 07/20.
--- NOTE | 2019-07-20 19:24 | NUR ---
Opening Shift Note Assumed care of patient, awake and alert, resting in bed at this time. No S/S of distress/SOB or pain. Instructed on POC and to call for assist PRN, will continue to monitor for changes Q1hr and PRN.
[2019-07-20 21:31] VITALS: BP 123/70
[2019-07-21 04:44] VITALS: BP 139/77
[2019-07-21] MEDS: BUDESONIDE (INHALATION) 0.5 MG/2 ML NEB NEB SCH ×2 (07:03→23:06)
[2019-07-21] MEDS: ALBUTEROL SULF 2.5 MG/0.5ML(0.5%) NEB SOLN NEB SCH ×3 (07:03→23:06)
--- NOTE | 2019-07-21 07:07 | NUR ---
Opening Shift Note: Assumed care of patient, awake and alert. No S/S of distress/SOB or pain. Bed in lowest locked position, side rails up x 2, call light within reach. Patient instructed on POC and to call for assist PRN, will continue to monitor for changes Q1hr and PRN.
[2019-07-21 09:00] VITALS: BP 109/64
[2019-07-21] MEDS: AMIODARONE HCL 200 MG TAB PO SCH ×2 (09:59→22:57)
[2019-07-21] MEDS: levoFLOXacin 500MG 100 ML IV SCH (09:59)
[2019-07-21] MEDS: TAMSULOSIN HYDROCHLORIDE 0.4 MG CAP PO SCH ×2 (09:59→22:58)
[2019-07-21] MEDS: METOPROLOL SUCCINATE XL 50 MG TAB PO SCH ×2 (10:00→22:58)
[2019-07-21] MEDS: FINASTERIDE 5 MG TAB PO SCH (10:01)
[2019-07-21] MEDS: RIVAROXABAN 10 MG TAB PO SCH (10:01)
[2019-07-21] MEDS: POTASSIUM CHL 20 Meq TABLET PO SCH (10:01)
[2019-07-21] MEDS: FUROSEMIDE 20 MG TAB PO SCH (10:01)
[2019-07-21 13:00] VITALS: BP 121/66
[2019-07-21 13:47] LABS: Basophils # (auto) 0.1 10 ^3/uL (0-0.2); Basophils % (auto) 1.2 % (0.0-2.0); Eosinophils # (auto) 0.1 10 ^3/uL (0-0.8); Eosinophils % (auto) 1.1 % (0.0-7.0); Hematocrit 39.2 % (41.0-53.0); Hemoglobin 13.7 g/dL (13.5-17.5); Lymphocytes # (auto) 1.7 10 ^3/uL (0.4-5.4); Lymphocytes % (auto) 20.5 % (10.0-50.0); Mean Corpuscular Hemoglobin 32.2 pg (28.0-32.0); Mean Corpuscular Hgb Conc. 35.1 g/dL (32.0-36.0); Mean Corpuscular Volume 91.8 fL (80.0-100.0); Monocytes # (auto) 0.9 10 ^3/uL (0-1.3); Monocytes % (auto) 11.4 % (0.0-12.0); Neutrophils # (auto) 5.5 10 ^3/uL (1.6-8.6); Neutrophils % (auto) 65.8 % (37.0-80.0); Platelet Count (auto) 201 10^3/uL (140-450); Red Blood Cells 4.27 10^6/uL (4.5-5.90); Red Cell Distribution Width 15.3 % (11.8-14.3); White Blood Cell 8.3 10^3/uL (4.4-10.8)
[2019-07-21 14:16] LABS: Albumin 2.6 g/dL (3.4-5.0); Calcium 8.5 mg/dL (8.5-10.1); Potassium 3.5 mmol/L (3.5-5.1)
[2019-07-21 14:20] LABS: BUN/Creatinine Ratio 17.6; Bilirubin, Total 0.7 mg/dL (0.2-1.0)
[2019-07-21 17:00] VITALS: BP 109/73
--- NOTE | 2019-07-21 18:50 | NUR ---
US COLLECTED AND SENT Addendum: 07/21/19 at 1916 by CHELLE RANGEL RN RN Correction UA
--- NOTE | 2019-07-21 19:16 | NUR ---
CLOSING NOTE: Patient resting in bed, no S/S of pain, SOB and distress noted at this time. Care endorsed to NOC RN.
[2019-07-21 19:23] LABS: Urine WBC None Seen /hpf (0 - 3)
--- NOTE | 2019-07-21 19:30 | NUR ---
Opening Shift Note Assumed care of patient, awake and alert. No S/S of distress/SOB or pain. Instructed on POC and to call for assist PRN, will continue to monitor for changes Q1hr and PRN. Jean-Baptiste below bed draining to gravity.
[2019-07-21 19:42] LABS: Urine Bacteria NONE SEEN /hpf (None Seen); Urine Blood 2+ /uL (Negative); Urine Hyaline Cast FEW /lpf (0 - 2); Urine Mucus FEW (None Seen); Urine Specific Gravity 1.011 (1.001-1.035)
[2019-07-21 22:00] VITALS: BP 141/71
[2019-07-21 23:12] VITALS: BP 141/71
[2019-07-22 02:00] VITALS: BP 120/72
[2019-07-22 05:00] VITALS: BP 141/81
[2019-07-22] MEDS: ALBUTEROL SULF 2.5 MG/0.5ML(0.5%) NEB SOLN NEB SCH ×2 (05:59→14:17)
[2019-07-22] MEDS: BUDESONIDE (INHALATION) 0.5 MG/2 ML NEB NEB SCH (05:59)
--- NOTE | 2019-07-22 07:20 | NUR ---
Report given to day shift nurse
[2019-07-22 08:00] VITALS: BP 110/66
[2019-07-22] MEDS: AMIODARONE HCL 200 MG TAB PO SCH (09:53)
[2019-07-22] MEDS: METOPROLOL SUCCINATE XL 50 MG TAB PO SCH (09:55)
[2019-07-22] MEDS: RIVAROXABAN 10 MG TAB PO SCH (09:56)
[2019-07-22] MEDS: FUROSEMIDE 20 MG TAB PO SCH (09:56)
[2019-07-22] MEDS: FINASTERIDE 5 MG TAB PO SCH (09:57)
[2019-07-22] MEDS: TAMSULOSIN HYDROCHLORIDE 0.4 MG CAP PO SCH (09:58)
[2019-07-22] MEDS ORDERED: levoFLOXacin 250MG 50 ML IV SCH (10:00)
[2019-07-22] MEDS: POTASSIUM CHL 20 Meq TABLET PO SCH (10:09)
[2019-07-22 12:00] VITALS: BP 124/74
[2019-07-22 15:36] VITALS: BP 124/74
[2019-07-22 16:54] VITALS: BP 104/71
== END 2019-07-22 19:49 | disposition home or self-care (01) | DRG 699 ==
LOC: ER 17:17 → TELE 17:18 → TELE-WESTW 22:49
PROVIDERS: ADMIT Internal Medicine Cardiovascular Disease; ATTEND Internal Medicine Cardiovascular Disease
DX: T83.511A Infection and inflammatory reaction due to indwelling urethral catheter, initial encounter (principal); N30.01 Acute cystitis with hematuria; D68.59 Other primary thrombophilia; R64 Cachexia; I25.10 Atherosclerotic heart disease of native coronary artery without angina pectoris; I48.91 Unspecified atrial fibrillation; N13.9 Obstructive and reflux uropathy, unspecified; I49.5 Sick sinus syndrome; Z77.090 Contact with and (suspected) exposure to asbestos; N40.0 Benign prostatic hyperplasia without lower urinary tract symptoms; I10 Essential (primary) hypertension; Z95.1 Presence of aortocoronary bypass graft; Z88.0 Allergy status to penicillin; Z79.01 Long term (current) use of anticoagulants; Z79.899 Other long term (current) drug therapy; Z98.49 Cataract extraction status, unspecified eye; Z81.8 Family history of other mental and behavioral disorders; Z82.49 Family history of ischemic heart disease and other diseases of the circulatory system; Z82.0 Family history of epilepsy and other diseases of the nervous system; Z68.20 Body mass index [BMI] 20.0-20.9, adult
CPT/HCPCS: 36415; 74176; 80053; 81001; 85025; 87081; 87086; 94640; G0378; J1956

== ENCOUNTER → 2019-10-25 | Emergency (ER) | payer MEDICARE, OTHER ==
[~2019-10-25] VITALS: Ht 170.2 cm; Wt 65.8 kg
[~2019-10-25] MED LIST changes: +DEXL60CA3 PO; -DEXL60CA4 PO; +WARF4TAB PO; -WARF4TAB2 PO
[2019-10-26 02:19] LABS: Urine Bacteria NONE SEEN /hpf (None Seen); Urine Blood 3+ /uL (Negative)
[2019-10-26 02:23] LABS: Urine Mucus FEW (None Seen)
[2019-10-26 03:00] VITALS: BP 150/97
== END | disposition home or self-care (01) ==
LOC: ER 20:37
DX: T83.098A Other mechanical complication of other urinary catheter, initial encounter (principal); N40.1 Benign prostatic hyperplasia with lower urinary tract symptoms; N39.0 Urinary tract infection, site not specified; F03.90 Unspecified dementia, unspecified severity, without behavioral disturbance, psychotic disturbance, mood disturbance, and anxiety; I25.810 Atherosclerosis of coronary artery bypass graft(s) without angina pectoris; I10 Essential (primary) hypertension; E78.00 Pure hypercholesterolemia, unspecified; Z88.0 Allergy status to penicillin; Z79.899 Other long term (current) drug therapy
CPT/HCPCS: 51702; 81001; 87086

== ENCOUNTER 2019-11-04 16:07 | Inpatient (IN) | payer MEDICARE, OTHER ==
[~2019-11-04] VITALS: Ht 175.3 cm; Wt 67.0 kg
[~2019-11-04 16:07] MED LIST changes: -DEXL60CA3 PO; +DEXL60CA4 PO; -WARF4TAB PO; +WARF4TAB2 PO
[2019-11-05] MEDS ORDERED: SODIUM CHLORIDE 0.9% 1,000 ML IV ONE ×2 (00:13→08:15)
[2019-11-05 00:34] LABS: Hematocrit 47.3 % (41.0-53.0); Hemoglobin 15.6 g/dL (13.5-17.5); Mean Corpuscular Hemoglobin 30.4 pg (28.0-32.0); Mean Corpuscular Hgb Conc. 32.9 g/dL (32.0-36.0); Mean Corpuscular Volume 92.3 fL (80.0-100.0); Platelet Count (auto) 188 10^3/uL (140-450); Red Blood Cells 5.13 10^6/uL (4.5-5.90); Red Cell Distribution Width 14.1 % (11.8-14.3); White Blood Cell 12.8 10^3/uL (4.4-10.8)
[2019-11-05 00:38] LABS: INR 1.21 (0.9-1.15); Partial Thromboplastin Time 31.4 sec (23.64-32.05)
[2019-11-05 00:40] LABS: Basophils % (manual) 0 (0.0-2.0); Blast Cells 0; Eosinophils % (manual) 0 (0-7); Metamyelocytes % 0; Myelocytes % 0; Promyelocytes % 0; Reactive Lymphocytes 0
[2019-11-05 00:41] LABS: Albumin 3.2 g/dL (3.4-5.0); BUN/Creatinine Ratio 20.4; Calcium 8.7 mg/dL (8.5-10.1)
[2019-11-05 00:49] LABS: Total Protein 6.4 g/dL (6.4-8.2)
[2019-11-05 01:10] LABS: Band Neutrophils % (manual) 3; Lymphocytes % (manual) 12 (10.0-50.0); Monocytes % (manual) 9 (0-12)
[2019-11-05] MEDS ORDERED: dilTIAZem 25 MG/5 ML VIAL IV ONE ×2 (01:45→12:30)
[2019-11-05 03:09] LABS: Urine Bacteria FEW /hpf (None Seen); Urine Blood 3+ /uL (Negative); Urine Specific Gravity 1.015 (1.001-1.035); Urine WBC 6056 /hpf (0 - 3)
[2019-11-05] MEDS ORDERED: cefTRIAXone 1GM/50ML D5W 50 ML IV ONE (03:30)
[2019-11-05] MEDS ORDERED: FUROSEMIDE 20 MG TAB PO ONE (08:15)
[2019-11-05] MEDS ORDERED: DONEPEZIL HYDROCHLORIDE 5 MG TAB PO SCH (10:00)
[2019-11-05] MEDS ORDERED: FAMOTIDINE 20 MG TAB PO SCH (10:00)
[2019-11-05] MEDS ORDERED: ENOXAPARIN SOD 40 MG/0.4 ML SYRINGE SC SCH (10:00)
[2019-11-05] MEDS: TERAZOSIN HCL 1 MG CAP PO SCH (10:01)
[2019-11-05] MEDS: METOPROLOL SUCCINATE XL 50 MG TAB PO SCH ×2 (10:02→23:10)
--- NOTE | 2019-11-05 12:34 | NUR ---
Patient arrived to the floor. Patient shows no signs of distress at this time. Discussed plan of care with the patient. Bed in lowest position, side rails up x2, and the call light is within reach.
[2019-11-05 12:38] VITALS: BP 103/73
[2019-11-05] MEDS ORDERED: LEVALBUTEROL HCL 1.25 MG/3 ML NEB NEB SCH (14:00)
--- NOTE | 2019-11-05 15:51 | NUR ---
Page Dr. Morales regarding the patient's high heart rate. Awaiting a call back.
[2019-11-05] MEDS ORDERED: DIGOXIN (250MCG/ML) 2 ML AMPULE IV ONE (16:30)
[2019-11-05 16:59] VITALS: BP 122/78
--- NOTE | 2019-11-05 19:25 | NUR ---
Opening Shift Note Upon entering patient's room, patient laying supine in bed w/ HOB at 30 degrees. Upon asking patient to look at his wrist band, patient became agitated and tried grabbing my arm. Patient extremely confused, AOx1 and could not recall where he is at. After speaking to patient calmly and reassuring he is in the hospital, patient continued to be confused about the situation. Patient was moved to [address] per zinc furnace charger and now has a sitter at bedside. Patient 2L NC w/ No s/s of pain or respiratory distress. Will continue to monitor.
[2019-11-05 20:00] VITALS: BP 130/76
[2019-11-05] MEDS: ATORVASTATIN 20 MG TAB PO SCH (20:08)
[2019-11-05 22:00] VITALS: BP 130/76
[2019-11-05] MEDS: FAMOTIDINE 20 MG TAB PO SCH (23:11)
[2019-11-05] MEDS: ENOXAPARIN SOD 40 MG/0.4 ML SYRINGE SC SCH (23:12)
[2019-11-06 05:35] VITALS: BP 135/80
[2019-11-06] MEDS: LEVALBUTEROL HCL 1.25 MG/3 ML NEB NEB PRN (06:41)
--- NOTE | 2019-11-06 07:01 | NUR ---
IV removal Patient pulled IV by accident and was jail out. IV DC'd with sterile technique, catheter fully intact. Pressure dressing applied to site. Patient tolerated procedure well. Attempted to insert a new IV twice on left arm, but unsuccessful after vein's blew.
[2019-11-06 08:00] VITALS: BP 137/89
[2019-11-06] MEDS: TERAZOSIN HCL 1 MG CAP PO SCH (10:52)
[2019-11-06] MEDS: FAMOTIDINE 20 MG TAB PO SCH (10:54)
[2019-11-06] MEDS: ATORVASTATIN 20 MG TAB PO SCH (10:54)
[2019-11-06] MEDS: METOPROLOL SUCCINATE XL 50 MG TAB PO SCH ×2 (10:55→20:26)
[2019-11-06] MEDS: ENOXAPARIN SOD 40 MG/0.4 ML SYRINGE SC SCH ×2 (10:56→20:27)
[2019-11-06] MEDS: DONEPEZIL HYDROCHLORIDE 5 MG TAB PO SCH (10:59)
[2019-11-06 13:00] VITALS: BP 109/78
--- NOTE | 2019-11-06 13:41 | NUR ---
Dr. Morales at bedside to discuss plan of care with patient. No orders received at this time
--- NOTE | 2019-11-06 14:06 | NUR ---
DR. ALMAZAN AT BEDSIDE WITH PATIENT TO DISCUSS PLAN OF CARE. DR. ALMAZAN STATED THE PATIENT IS ALREADY ON SCHEDULE FOR TURP ON 11/13/2019 AND CAN NOT GET HIM DONE ANY SOONER. I LEFT MESSAGE WITH DR. TAVERAS TO NOTIFY.
[2019-11-06 17:00] VITALS: BP 116/81
--- NOTE | 2019-11-06 17:59 | NUR ---
IV insertion IV access obtained, via clean sterile technique by inserting 22 gauge catheter at right hand after one attempt. IV secured properly. No trauma to site. Patient tolerated well.
--- NOTE | 2019-11-06 19:30 | NUR ---
Opening Shift Note Patient AOx2 and resting w/ eyes closed. No S/s of distress or SOB noted. Sitter at bedside for safety, bed in locked in lowest position and HOB at 30 degrees. Will continue to monitor.
[2019-11-06 20:00] VITALS: BP 116/81
[2019-11-06 22:00] VITALS: BP 134/80
[2019-11-07 04:48] VITALS: BP 130/80
[2019-11-07] MEDS: LEVALBUTEROL HCL 1.25 MG/3 ML NEB NEB PRN ×2 (07:19→13:27)
[2019-11-07 08:00] VITALS: BP 133/77
--- NOTE | 2019-11-07 08:37 | NUR ---
PT. ASSESSED FOR PRN. MN. TX., NO RESP. DISTRESS OR SOB NOTED. VITALS HR79,RR 20, SP02 99% ON 2LPM. BS. ARE CLEAR. PT. STATES HIS BREATHING IS GOOD RIGHT NOW. NO TX. GIVEN, INSTRUCTED PT. TO CALL IF NEEDED. Addendum: 11/07/19 at 0931 by Kristen Willis RT Amended: Links added.
[2019-11-07 08:50] VITALS: BP 133/77
[2019-11-07] MEDS: DONEPEZIL HYDROCHLORIDE 5 MG TAB PO SCH (10:00)
[2019-11-07] MEDS: TERAZOSIN HCL 1 MG CAP PO SCH (11:20)
[2019-11-07] MEDS: MUPIROCIN 2% OINT 15gm or 22gm EACHNOSTRI SCH ×2 (11:20→21:24)
[2019-11-07] MEDS: FAMOTIDINE 20 MG TAB PO SCH (11:20)
[2019-11-07] MEDS: ATORVASTATIN 20 MG TAB PO SCH (11:20)
[2019-11-07] MEDS: METOPROLOL SUCCINATE XL 50 MG TAB PO SCH ×2 (11:21→21:23)
[2019-11-07] MEDS: ENOXAPARIN SOD 40 MG/0.4 ML SYRINGE SC SCH ×2 (11:21→21:24)
[2019-11-07] MEDS ORDERED: TIOT17SP IN (14:57)
[2019-11-07] MEDS ORDERED: IPRAAER6 IN (14:57)
[2019-11-07] MEDS ORDERED: FINA5TAB4 PO (14:57)
[2019-11-07] MEDS ORDERED: PANT40TA2 PO (14:57)
[2019-11-07] MEDS ORDERED: OLME20TA53 PO (14:57)
[2019-11-07] MEDS ORDERED: MAGN400C4 PO (14:57)
[2019-11-07] MEDS ORDERED: MED20T PO (14:57)
[2019-11-07] MEDS ORDERED: RIV20T PO (14:57)
[2019-11-07] MEDS ORDERED: TAMS0.4C36 PO (14:57)
[2019-11-07] MEDS ORDERED: SOTA80TA62 PO (14:57)
[2019-11-07] MEDS ORDERED: DEXL60CA4 PO (14:57)
[2019-11-07] MEDS ORDERED: BRIM0.1S3 OP (15:02)
[2019-11-07] MEDS ORDERED: TIMO0.5S67 OP (15:02)
[2019-11-07] MEDS ORDERED: BRIN1SUS OP (15:02)
[2019-11-07 18:31] VITALS: BP 128/85
--- NOTE | 2019-11-07 18:50 | NUR ---
PT ASSESSED, NO SOB NOTED. BS DIMINISHED BILATERALLY, PT IS AWAKE AND ALERT, KNOWS TO CALL IF MN TX NEEDED
--- NOTE | 2019-11-07 19:20 | NUR ---
Opening Shift Note Assumed care of patient, awake and alert. No S/S of distress/SOB or pain. Instructed on POC and to call for assist PRN, will continue to monitor for changes Q1hr and PRN. Fall precautions in place per safety protocol.
[2019-11-07 22:00] VITALS: BP 96/68
[2019-11-08 05:46] VITALS: BP 131/90
--- NOTE | 2019-11-08 07:30 | NUR ---
Opening Note Received report from mold shifter RN. Patient is awake sitting up in bed. Patient is on 2L NC, respirations even and unlabored. Patient denies pain at this time. Jean-Baptiste catheter in place, patent and draining. Reviewed plan of care of patient. Bed in low and locked position, call light within reach. Will continue to monitor Q1 hour and PRN.
[2019-11-08 09:00] VITALS: BP 102/62
[2019-11-08] MEDS: METOPROLOL SUCCINATE XL 50 MG TAB PO SCH ×2 (10:00→21:46)
[2019-11-08] MEDS: TERAZOSIN HCL 1 MG CAP PO SCH (10:00)
[2019-11-08] MEDS: ATORVASTATIN 20 MG TAB PO SCH (10:45)
[2019-11-08] MEDS: FAMOTIDINE 20 MG TAB PO SCH (10:45)
[2019-11-08] MEDS: ENOXAPARIN SOD 40 MG/0.4 ML SYRINGE SC SCH ×2 (10:46→21:46)
[2019-11-08] MEDS: DONEPEZIL HYDROCHLORIDE 5 MG TAB PO SCH (10:46)
[2019-11-08] MEDS: MUPIROCIN 2% OINT 15gm or 22gm EACHNOSTRI SCH ×2 (10:50→21:45)
[2019-11-08 13:00] VITALS: BP 129/56
--- NOTE | 2019-11-08 14:05 | NUR ---
IV Removed IV removed with clean sterile technique, catheter fully intact. Pressure dressing applied to site. Patient tolerated well. Will continue to monitor Q1 hour and PRN.
--- NOTE | 2019-11-08 14:08 | NUR ---
IV Insertion IV access obtained, via clean sterile technique by inserting 22 gauge catheter at after one attempt. IV secured properly. No trauma to site. Patient tolerated well.
--- NOTE | 2019-11-08 14:15 | NUR ---
Nutrition Assessment Notes please see attached link for complete assessment Est energy needs BW 63 [id number] kcal (25-30 kcal/kg BW) , Est protein needs 63-75g (1.0-1.2g/kg BW ). Will reassess prn. Addendum: 11/08/19 at [address] Amended: Links added.
[2019-11-08 14:40] VITALS: BP 129/56
[2019-11-08 17:00] VITALS: BP 133/85
--- NOTE | 2019-11-08 19:23 | NUR ---
Closing Note Report given to shipping and receiving clerk RN. No signs or symptoms of distress noted at this time.
--- NOTE | 2019-11-08 19:50 | NUR ---
RT NOTE PT WAS SEEN BY RT FOR PRN HHN TX ASSESSMENT. PT STATES NO TREATMENT NEEDED. HR 98, RR 18, BS CLEAR/DIM, POX 100% ON 2L NASAL CANNULA. NO PRN TX INDICATED AT THIS TIME. CONT ORDERED Addendum: 11/08/19 at 2016 by Mitzy García RT Amended: Links added.
[2019-11-08 22:00] VITALS: BP 135/83
[2019-11-09 05:36] VITALS: BP 150/80
--- NOTE | 2019-11-09 06:34 | NUR ---
Closing Note Patient lying in bed, awake and alert. No s/s of distress. Bed in lowest locked position, side rails up x2, call light within reach, bed alarm on. Will endorse care to dayshift RN.
--- NOTE | 2019-11-09 07:35 | NUR ---
Opening Note Received report from gold leaf laborer RN. Patient is awake sitting up in bed. Patient is on room air, respirations even and unlabored. Patient denies pain at this time. Jean-Baptiste catheter in place, patent and draining. Reviewed plan of care of patient. Bed in low and locked position, call light within reach. Will continue to monitor Q1 hour and PRN.
--- NOTE | 2019-11-09 07:39 | NUR ---
PT. ASSESSED FOR PRN. MN. TX. , NO RESP. DISTRESS OR SOB NOTED. PT. IS AWAKE AND ALERT, VITALS ARE HR=80,RR=18, SP02=97% ON RA. PRN. TX. NOT INDICATED AT THIS TIME, NO TX. GIVEN . PT. MAY CALL IF NEEDED. Addendum: 11/09/19 at 0741 by Kristen Willis RT Amended: Links added.
[2019-11-09 09:00] VITALS: BP 102/60
[2019-11-09] MEDS: ATORVASTATIN 20 MG TAB PO SCH (09:59)
[2019-11-09] MEDS: ENOXAPARIN SOD 40 MG/0.4 ML SYRINGE SC SCH ×3 (09:59→22:44)
[2019-11-09] MEDS: DONEPEZIL HYDROCHLORIDE 5 MG TAB PO SCH (09:59)
[2019-11-09] MEDS: FAMOTIDINE 20 MG TAB PO SCH (09:59)
[2019-11-09] MEDS: METOPROLOL SUCCINATE XL 50 MG TAB PO SCH ×2 (10:00→22:44)
[2019-11-09] MEDS: TERAZOSIN HCL 1 MG CAP PO SCH (10:00)
[2019-11-09] MEDS: MUPIROCIN 2% OINT 15gm or 22gm EACHNOSTRI SCH ×2 (10:01→22:43)
--- NOTE | 2019-11-09 12:20 | NUR ---
Call from Dr. Ch Per MD he will not be in to see the patient today. Dr. Morales aware, will recall consult with Dr. Gibson for tomorrow. Will continue to monitor Q1 hour and PRN.
[2019-11-09 13:00] VITALS: BP 132/91
--- NOTE | 2019-11-09 16:08 | NUR ---
Patient transferred to room 279A Transferred with all personal belongings. Will continue to monitor Q1 hour and PRN. Sitter at bedside for safety.
--- NOTE | 2019-11-09 19:04 | NUR ---
Closing Note Report given to night guard RN. No signs or symptoms of distress noted at this time. Sitter at bedside for safety.
--- NOTE | 2019-11-09 19:05 | NUR ---
Respiratory note: PT TAKEN OFF OXYMIZER AND PLACED ON 8 L/M SIMPLE MASK DUE TO PT HAVING A BLOODY NOSE. PT TOLERATING CHANGE WELL. SPO2 IS 95% WITH NO S/S OF SOB. WILL CONTINUE TO MONITOR.
--- NOTE | 2019-11-10 04:31 | NUR ---
Patient requesting medicine for constipation and "a lot" of pain to his penis. Patient's heart rhythm and rate also atrial fibrillation 140's-170's. Patient educated pain medication not ordered, but that this RN will contact patient's PCP for orders. Dr. Morales paged, awaiting call back at this time.
--- NOTE | 2019-11-10 04:38 | NUR ---
Return page from MD Morales at this time, new orders recieved (see order history). All orders read back and verified, will implement as ordered and continue to monitor.
[2019-11-10] MEDS ORDERED: KETOROLAC TROMETH 30 MG/ML 1ML VIAL IV PRN (05:00)
[2019-11-10] MEDS ORDERED: HYDROcodone-ACET 10/325MG TAB PO PRN (05:00)
[2019-11-10] MEDS ORDERED: AMIODARONE HCL 200 MG TAB PO ONE (05:00)
[2019-11-10] MEDS ORDERED: LACTULOSE 20Gm/30ML SOLN PO ONE (05:00)
--- NOTE | 2019-11-10 05:00 | NUR ---
Patient appears agitated, attempting to pull out his Jean-Baptiste catheter. Patient reoriented and reassured by this RN and sitter. Bilateral mittens applied, bilateral pulses felt. Will continue to monitor.
--- NOTE | 2019-11-10 06:00 | NUR ---
Patient still in atrial fibrillation, heart rate consistently 110's-130's. Patient appears to be less agitated at this time. Patient offered ordered Lactulose and educated on use of medication, patient refusing at this time. Will continue care.
--- NOTE | 2019-11-10 06:34 | NUR ---
Respiratory note: PRN MED NEB TX NOT INDICATED AT THIS TIME. HR 132, RR 16, SPO2 96% ON 2 L NC, BS CLEAR AND DIMINISHED.NO SIGNS OR SYMPTOMS OF RESPIRATORY DISTRESS NOTED.PT INFORMED TO HIT CALL BUTTON IF FEELING SOB OR WHEEZING.
--- NOTE | 2019-11-10 06:57 | NUR ---
Patient lying in bed, awake and alert. No s/s of distress. Sitter at bedside. Bed in lowest locked position, side rails up x2, call light within reach. Care endorsed to dayshift RN.
[2019-11-10] MEDS ORDERED: LACTULOSE 20Gm/30ML SOLN PO PRN (07:00)
--- NOTE | 2019-11-10 07:25 | NUR ---
Opening Shift Note: Assumed care of patient, awake and alert x3. No S/S of distress/SOB or pain. Bed in lowest locked position, side rails up x 2, call light within reach. Sitter at bedside for patient safety. Patient instructed on POC and to call for assist PRN, will continue to monitor for changes Q1hr and PRN.
[2019-11-10 08:27] VITALS: BP 136/96
[2019-11-10] MEDS: ENOXAPARIN SOD 40 MG/0.4 ML SYRINGE SC SCH ×2 (10:03→21:13)
[2019-11-10] MEDS: TERAZOSIN HCL 1 MG CAP PO SCH (10:04)
[2019-11-10] MEDS: FAMOTIDINE 20 MG TAB PO SCH (10:04)
[2019-11-10] MEDS: METOPROLOL SUCCINATE XL 50 MG TAB PO SCH ×2 (10:04→21:12)
[2019-11-10] MEDS: DONEPEZIL HYDROCHLORIDE 5 MG TAB PO SCH (10:04)
[2019-11-10] MEDS: ATORVASTATIN 20 MG TAB PO SCH (10:04)
[2019-11-10] MEDS: AMIODARONE HCL 200 MG TAB PO SCH ×2 (10:05→21:11)
[2019-11-10] MEDS: MUPIROCIN 2% OINT 15gm or 22gm EACHNOSTRI SCH ×2 (10:07→21:11)
[2019-11-10 13:00] VITALS: BP 114/73
[2019-11-10 17:00] VITALS: BP 117/61
--- NOTE | 2019-11-10 18:03 | NUR ---
Patient confused, tugging at romano.
--- NOTE | 2019-11-10 21:13 | NUR ---
Minimal urine out put. Bladder scan performed, showing 419 mL in bladder. Attempted to contact Dr. Morales at this time. Awaiting call back. Addendum: 11/10/19 at 2118 by CHELLE RANGEL RN RN Patient states no pain or tenderness.
--- NOTE | 2019-11-10 21:19 | NUR ---
Received orders from Dr. Morales to reinsert jim romano.
--- NOTE | 2019-11-10 21:49 | NUR ---
Jean-Baptiste catheter insertion: Order obtained from . Patient educated on catheter and reason for insertion. All questions answered. Jean-Baptiste catheter 14 guage Malay inserted with clean sterile technique. Patient tolerated well. Addendum: 11/10/19 at 2309 by CHELLE RANGEL RN RN 500 mL of clear yellow urine output
--- NOTE | 2019-11-11 02:56 | NUR ---
CLOSING NOTE: Patient asleep in bed. No S/S of distress at this time. Sitter at bedside for patient safety. Care endorsed.
--- NOTE | 2019-11-11 03:22 | NUR ---
Opening Shift Note Assumed care of patient, pt laying down in bed quietly with eyes closed. pt is on 2 l NC with even and unlabored respirations, equal chest rise and fall present. No S/S of distress/SOB or pain at this time. Sitter at bedside for safety, mittens remain on pt as pt attempts to pull at IV line/romano. Bilateral radial pulses present with adequate cap refill bilateral hands. Bed is in lowest locked position, sire rails up x2, bed alarm set for safety and call light is within reach. Will continue to monitor for changes Q1hr and PRN.
[2019-11-11 06:19] VITALS: BP 155/77
--- NOTE | 2019-11-11 07:20 | NUR ---
Closing Note Patient resting quietly in bed with eyes closed. Pt is on 2 L NC with even and unlabored respirations. No S/S of distress/SOB or pain. Care endorsed to Minoo BARTLETT.
--- NOTE | 2019-11-11 07:30 | NUR ---
Opening Shift Note Assumed care of patient, awake and alert. No S/S of distress/SOB or pain. Instructed on POC and to call for assist PRN, will continue to monitor for changes Q1hr and PRN. Bed locked in lowest position with two side rails up and call light in reach.
[2019-11-11 08:00] VITALS: BP 111/71
[2019-11-11 09:00] VITALS: BP 111/74
[2019-11-11] MEDS: METOPROLOL SUCCINATE XL 50 MG TAB PO SCH ×2 (10:00→21:34)
[2019-11-11] MEDS: TERAZOSIN HCL 1 MG CAP PO SCH (10:00)
[2019-11-11] MEDS: MUPIROCIN 2% OINT 15gm or 22gm EACHNOSTRI SCH ×2 (10:14→21:46)
[2019-11-11] MEDS: FAMOTIDINE 20 MG TAB PO SCH (10:18)
[2019-11-11] MEDS: ENOXAPARIN SOD 40 MG/0.4 ML SYRINGE SC SCH ×2 (10:18→10:24)
[2019-11-11] MEDS: DONEPEZIL HYDROCHLORIDE 5 MG TAB PO SCH (10:20)
[2019-11-11] MEDS: AMIODARONE HCL 200 MG TAB PO SCH ×2 (10:21→21:35)
[2019-11-11] MEDS: ATORVASTATIN 20 MG TAB PO SCH (10:21)
--- NOTE | 2019-11-11 12:45 | NUR ---
Continuation of care: Received report on patient. Patient resting in bed. No S/S of distress. Sitter at bedside.
[2019-11-11 13:00] VITALS: BP 120/86
--- NOTE | 2019-11-11 16:25 | NUR ---
Nutrition Followup Notes Pt wt is 69.0 kg Pt was awake with CRYSTAL EVALUATOR at bedside when rounded this morning. Pt is confused. Per CRYSTAL EVALUATOR pt 's appetite is good, he ate all of his breakfast this am. Pt's is with a 2g Low Sodium diet, his recorded appetite is fair aeb ave 67% PO intake over 3 meals per RN doc. Pt with no distress. Will continue to monitor PO status, skin status, pertinent labs and weight trends. Will f/u in 3-5 days. Est energy needs BW 63 [id number] kcal (25-30 kcal/kg BW) Est protein needs 63-75g (1.0-1.2g/kg BW) Will reassess prn. LABS: BUN 23 H, Gluc 109 H, Alb 3.2 L GI: Pt had 2 BM on 11/08 per RN doc BS: 18 mod risk. Refer to wound assessment report for full details. PES: Altered nutrition related lab values r.t current medical condition aeb elev BUN hyperglycemia Comments: Continue current plan of care
[2019-11-11 17:00] VITALS: BP 120/74
--- NOTE | 2019-11-11 18:48 | NUR ---
CLOSING NOTE: Patient resting in bed. No S/S of distress at this time. Sitter at bedside for patient safety. Care endorsed to ARTUR RN.
--- NOTE | 2019-11-11 19:15 | NUR ---
Opening Shift Note Assumed care of patient, awake and alert. No S/S of distress/SOB or pain. Instructed patient on POC and to call for assist PRN, will continue to monitor for changes Q1hr and PRN. Bed locked in lowest position, call light is within reach, HOB elevated at least 30 degrees and sitter is present at bedside.
[2019-11-11 20:00] VITALS: BP 111/58
--- NOTE | 2019-11-12 07:00 | NUR ---
CLOSING SHIFT NOTE ENDORSED CARE TO DAY SHIFT RN
[2019-11-12 08:00] VITALS: BP 107/75
[2019-11-12 09:00] VITALS: BP 107/75
[2019-11-12] MEDS: ENOXAPARIN SOD 40 MG/0.4 ML SYRINGE SC SCH ×2 (10:00→22:19)
[2019-11-12] MEDS: METOPROLOL SUCCINATE XL 50 MG TAB PO SCH ×2 (10:00→22:18)
[2019-11-12] MEDS: TERAZOSIN HCL 1 MG CAP PO SCH (10:00)
[2019-11-12] MEDS: AMIODARONE HCL 200 MG TAB PO SCH ×2 (11:02→22:18)
[2019-11-12] MEDS: ATORVASTATIN 20 MG TAB PO SCH (11:02)
[2019-11-12] MEDS: DONEPEZIL HYDROCHLORIDE 5 MG TAB PO SCH (11:02)
[2019-11-12] MEDS: FAMOTIDINE 20 MG TAB PO SCH (11:02)
[2019-11-12 13:00] VITALS: BP 139/71
--- NOTE | 2019-11-12 15:42 | NUR ---
assessment Patient is a 89 year old male who is answering appropriate. Patients daughter Debbi is his emergency contact at [phone]. I have left a message for Debbi to return my call as well as patients Renate. Per patient prior to admission he live home with his Renate and was independent. Patients PCP is Dr Morales. Patient is on service with [facility]. Patient will need a resumption order on discharge. Patient has a fww for home use. I will continue to monitor and follow up as appropriate. I informed patient he has a right to participate in any and all discharge planning. Patient does not have a POA and advanced directive. I have offered patient information on POA and advanced directives. I informed the patient the advantages and benefits of having an Advanced Directive. Patient verbalized understanding and agreed to discharge plan. Addendum: 11/12/19 at 1547 by Roxi LOVE Amended: Links added.
[2019-11-12 17:00] VITALS: BP 128/70
--- NOTE | 2019-11-12 19:45 | NUR ---
Opening Shift Note Assumed care of patient, awake and alert. No S/S of distress/SOB or pain noted. Instructed on POC and to call for assist PRN. Bed locked in lowest position with two side rails up and call light in reach. Sitter at the bedside.
--- NOTE | 2019-11-12 20:00 | NUR ---
Opening Shift Note Assumed care of patient, awake and alert. No S/S of distress/SOB or pain noted. Instructed on POC and to call for assist PRN. Bed locked in lowest position with two side rails up and call light in reach. Dressing circled dated and time on right groin with minimal red drainage noted. Addendum: 11/12/19 at 2308 by Layla Hensley RN RN Wrong patient
[2019-11-12 21:18] VITALS: BP 114/69
[2019-11-13 06:09] LABS: Basophils # (auto) 0 10 ^3/uL (0-0.2); Basophils % (auto) 0.6 % (0.0-2.0); Eosinophils # (auto) 0.1 10 ^3/uL (0-0.8); Eosinophils % (auto) 1.2 % (0.0-7.0); Hematocrit 42.9 % (41.0-53.0); Hemoglobin 14.2 g/dL (13.5-17.5); Lymphocytes # (auto) 1.1 10 ^3/uL (0.4-5.4); Lymphocytes % (auto) 14.8 % (10.0-50.0); Mean Corpuscular Hemoglobin 30.8 pg (28.0-32.0); Mean Corpuscular Hgb Conc. 33.1 g/dL (32.0-36.0); Mean Corpuscular Volume 92.8 fL (80.0-100.0); Monocytes # (auto) 0.7 10 ^3/uL (0-1.3); Monocytes % (auto) 8.6 % (0.0-12.0); Neutrophils # (auto) 5.7 10 ^3/uL (1.6-8.6); Neutrophils % (auto) 74.8 % (37.0-80.0); Platelet Count (auto) 140 10^3/uL (140-450); Red Blood Cells 4.62 10^6/uL (4.5-5.90); Red Cell Distribution Width 14.5 % (11.8-14.3); White Blood Cell 7.6 10^3/uL (4.4-10.8)
[2019-11-13 06:22] VITALS: BP 121/84
[2019-11-13 08:24] LABS: INR 1.07 (0.9-1.15)
[2019-11-13] MEDS: FAMOTIDINE 20 MG TAB PO SCH (08:57)
[2019-11-13] MEDS: TERAZOSIN HCL 1 MG CAP PO SCH (08:57)
[2019-11-13] MEDS: ATORVASTATIN 20 MG TAB PO SCH (08:58)
[2019-11-13] MEDS: METOPROLOL SUCCINATE XL 50 MG TAB PO SCH ×2 (08:58→22:21)
[2019-11-13] MEDS: AMIODARONE HCL 200 MG TAB PO SCH ×2 (08:58→22:21)
[2019-11-13] MEDS: DONEPEZIL HYDROCHLORIDE 5 MG TAB PO SCH (08:58)
[2019-11-13 09:00] VITALS: BP 156/91
[2019-11-13] MEDS: ENOXAPARIN SOD 40 MG/0.4 ML SYRINGE SC SCH ×2 (10:00→22:00)
[2019-11-13] MEDS ORDERED: SODIUM CHLORIDE LOCK 10 ML ONE (10:14)
[2019-11-13] MEDS ORDERED: ONDANSETRON HCL 4 MG/2 ML VIAL ONE (10:14)
[2019-11-13] MEDS ORDERED: PROPOFOL 10 MG/ML 20 ML IV ONE (10:14)
[2019-11-13] MEDS ORDERED: MIDAZOLAM HCL 1MG/1ML-2 ML VIAL ONE ×2 (10:14→13:10)
[2019-11-13] MEDS ORDERED: fentaNYL CITRATE 100 MCG/2 ML VL ONE ×2 (10:14→11:43)
[2019-11-13] MEDS ORDERED: MEPERIDINE HCL (25 MG/ML) 1ML VIAL ONE (10:14)
[2019-11-13] MEDS ORDERED: ROCURONIUM 10MG/ML 10ML VIAL IV ONE (10:14)
[2019-11-13] MEDS ORDERED: CIPROFLOXACIN 400MG/200ML 200 ML IV ONE (10:52)
[2019-11-13 12:05] LABS: BUN/Creatinine Ratio 24.5; Calcium 8.6 mg/dL (8.5-10.1); Potassium 3.9 mmol/L (3.5-5.1)
[2019-11-13] MEDS ORDERED: TETRACAINE 1% INJ 2 ML VIAL IJ ONE (12:10)
[2019-11-13 13:50] VITALS: BP 122/74
[2019-11-13 17:00] VITALS: BP 131/90
--- NOTE | 2019-11-13 19:44 | NUR ---
OPEN NOTE assumed care of pt. upon entering room pt has sitter at bedside. pt eyes are closed, breathing even and unlabored. no s/s distress observed. bed locked, low and 2x rails up. this nurse to update pt on plan of care at later time. pt has romano in place, CBI is running clear at the moment. this nurse will continue to monitor and adjust flow accordingly. call light in reach, this nurse encouraged sitter to call as needed.
[2019-11-13 22:00] VITALS: BP 131/71
[2019-11-14 04:41] VITALS: BP 110/71
--- NOTE | 2019-11-14 07:00 | NUR ---
Opening Shift Note Received report on the patient. Awake lying in bed. Patient shows no signs of distress at this time. Discussed plan of care with the patient. Bed in lowest position, side rails up x2, and call light is within reach.
[2019-11-14 09:00] VITALS: BP 129/74
[2019-11-14] MEDS: ENOXAPARIN SOD 40 MG/0.4 ML SYRINGE SC SCH ×2 (10:00→22:23)
[2019-11-14] MEDS: AMIODARONE HCL 200 MG TAB PO SCH ×2 (10:37→22:23)
[2019-11-14] MEDS: DONEPEZIL HYDROCHLORIDE 5 MG TAB PO SCH (10:37)
[2019-11-14] MEDS: METOPROLOL SUCCINATE XL 50 MG TAB PO SCH ×2 (10:38→22:23)
[2019-11-14] MEDS: FAMOTIDINE 20 MG TAB PO SCH (10:38)
[2019-11-14] MEDS: TERAZOSIN HCL 1 MG CAP PO SCH (10:38)
[2019-11-14] MEDS: ATORVASTATIN 20 MG TAB PO SCH (10:38)
--- NOTE | 2019-11-14 12:49 | NUR ---
Nutrition Followup Notes Pt wt is 75.8 kg Pt was with care team at time of rounds this morning. Pt diet order changed back to regular. Pt was NPO 11/12 for procedure. Pt appetite was fair prior to 11/12 aeb pt with 71% po avg intake 11/08-11/11 per RN note. Will f/u in 3-5 days. Est energy needs BW 63 [id number] kcal (25-30 kcal/kg BW) Est protein needs 63-75g (1.0-1.2g/kg BW) Will reassess prn. LABS: BUN 25H, ALb 3.2L GI: Pt had 1 BM on 11/11 per RN doc BS: 20 low risk. Refer to wound assessment report for full details. PES: Altered nutrition related lab values r.t current medical condition aeb elev BUN hyperglycemia Comments: Continue current plan of care pt po intake >75%
[2019-11-14 13:00] VITALS: BP 130/72
--- NOTE | 2019-11-14 15:16 | NUR ---
Dr Morales at bedside. No new orders.
[2019-11-14 17:00] VITALS: BP 111/70
--- NOTE | 2019-11-14 19:17 | NUR ---
Opening Shift Note Assumed care of patient after receiving report from gwyn Abad RN. Patient awake and alert with no S/S of distress/SOB or pain, patient breathing comfortably on RA. Call light within reach, bed in lowest position x2 side rails up, HOB semi fowlers. Instructed on POC and to call for assist PRN, will continue to monitor for changes Q1hr and PRN. Addendum: 11/14/19 at 2101 by Angelica Nails RN Received report from DHRUV Jeronimo.
[2019-11-14 22:00] VITALS: BP 108/71
[2019-11-15 05:00] VITALS: BP 129/71
[2019-11-15 09:00] VITALS: BP 97/61
[2019-11-15] MEDS: DONEPEZIL HYDROCHLORIDE 5 MG TAB PO SCH (09:49)
[2019-11-15] MEDS: AMIODARONE HCL 200 MG TAB PO SCH ×2 (09:49→21:47)
[2019-11-15] MEDS: TERAZOSIN HCL 1 MG CAP PO SCH (09:50)
[2019-11-15] MEDS: ATORVASTATIN 20 MG TAB PO SCH (09:51)
[2019-11-15] MEDS: METOPROLOL SUCCINATE XL 50 MG TAB PO SCH ×2 (09:51→21:47)
[2019-11-15] MEDS: FAMOTIDINE 20 MG TAB PO SCH (09:51)
[2019-11-15] MEDS: ENOXAPARIN SOD 40 MG/0.4 ML SYRINGE SC SCH ×2 (10:39→21:47)
--- NOTE | 2019-11-15 10:39 | NUR ---
Per Dr Morales "give Lovenox"
[2019-11-15 13:00] VITALS: BP 118/83
[2019-11-15 16:32] VITALS: BP 131/78
--- NOTE | 2019-11-15 19:08 | NUR ---
Endorsed patient care to DHRUV Rao. Patient shows no signs of distress.
--- NOTE | 2019-11-15 19:40 | NUR ---
Opening Shift Note Assumed care of patient, awake and alert x2. No S/S of distress/SOB or pain. Instructed on POC and to call for assist PRN. Bed in lowest locked position, call light within reach, side rails up x2, fall precautions in place, sitter at bedside for patient safety. Will continue to monitor for changes Q1hr and PRN.
--- NOTE | 2019-11-16 01:30 | NUR ---
Romano Hematuria noted in romano bag, no new output noted in romano bag. Moderate amount of leaking noted coming from penis and saturating marly. Romano irrigated, multiple clots removed. Romano now patent after clot removal.
[2019-11-16 05:00] VITALS: BP 139/85
--- NOTE | 2019-11-16 08:42 | NUR ---
WOUND CARE NOTE: Wound care in to see patient per wound care request regarding low Gerson score of 12, putting patient to high risk for skin breakdown. Patient is 89 years old male with admitting diagnosis of Hematuria. Patient is resting in bed in Rm. 279A. Patient is awake and follow simple direction. He's in no stated pain at this time and he appears to be in no pain using Mccracken Marin Faces Pain Scale. Skin assessment done with the assistance of patient's nurse RN Linda. No open wound noted other than blanchable redness to sacrum. Advised bedside nurse and nurse's aide at bedside to apply Z Guard cream to sacrum per MD order. Per staff, patient to be given bed bath, Z Guard and preventative Opti foam sacral dressing will be applied after bed bath given. RN Share reported that patient used to walk and moves on his own "it's just that patient is s/p TURP and on CBI" causing impaired mobility. Repositioned patient for comfort, redistributed pressure points with pillows. Nurse's aide at bedside RECOMMENDATION: Nursing to continue with BID/PRN cleaning and application of Barrier cream to sacral, buttocks as preventative per MD order, frequent turning and repositioning schedule as condition permits, redistribute pressure points with pillows, elevate heels on pillows, continue monitoring by wound care while Gerson score of <18.
[2019-11-16 09:00] VITALS: BP 112/62
[2019-11-16] MEDS: METOPROLOL SUCCINATE XL 50 MG TAB PO SCH ×2 (10:00→22:00)
[2019-11-16] MEDS: DONEPEZIL HYDROCHLORIDE 5 MG TAB PO SCH (10:19)
[2019-11-16] MEDS: AMIODARONE HCL 200 MG TAB PO SCH ×2 (10:20→22:00)
[2019-11-16] MEDS: ATORVASTATIN 20 MG TAB PO SCH (10:21)
[2019-11-16] MEDS: TERAZOSIN HCL 1 MG CAP PO SCH (10:21)
[2019-11-16] MEDS: FAMOTIDINE 20 MG TAB PO SCH (10:22)
[2019-11-16] MEDS: ENOXAPARIN SOD 40 MG/0.4 ML SYRINGE SC SCH ×2 (10:22→22:25)
[2019-11-16 11:03] LABS: Basophils # (auto) 0 10 ^3/uL (0-0.2); Basophils % (auto) 0.7 % (0.0-2.0); Eosinophils # (auto) 0.1 10 ^3/uL (0-0.8); Eosinophils % (auto) 1.1 % (0.0-7.0); Hematocrit 45.6 % (41.0-53.0); Lymphocytes # (auto) 1.1 10 ^3/uL (0.4-5.4); Lymphocytes % (auto) 15.8 % (10.0-50.0); Mean Corpuscular Hemoglobin 30.7 pg (28.0-32.0); Mean Corpuscular Hgb Conc. 32.9 g/dL (32.0-36.0); Mean Corpuscular Volume 93.3 fL (80.0-100.0); Monocytes # (auto) 0.5 10 ^3/uL (0-1.3); Monocytes % (auto) 7.2 % (0.0-12.0); Neutrophils # (auto) 5.4 10 ^3/uL (1.6-8.6); Neutrophils % (auto) 75.2 % (37.0-80.0); Nucleated Red Blood Cells % 0.1 %; Platelet Count (auto) 142 10^3/uL (140-450); Red Blood Cells 4.89 10^6/uL (4.5-5.90); Red Cell Distribution Width 15.2 % (11.8-14.3); White Blood Cell 7.2 10^3/uL (4.4-10.8)
--- NOTE | 2019-11-16 11:08 | NUR ---
Andrew at bedside. New orders received. Per Andrew "continue CBI until bleeding stops".
[2019-11-16 11:14] LABS: Calcium 8.8 mg/dL (8.5-10.1); Potassium 3.6 mmol/L (3.5-5.1)
[2019-11-16] MEDS: Ensure Enlive Strawberry 8oz Bottle PO SCH ×2 (12:25→18:02)
[2019-11-16 12:27] VITALS: BP 128/70
[2019-11-16 16:38] VITALS: BP 122/61
--- NOTE | 2019-11-16 19:10 | NUR ---
OPENING NOTE- NOC SHIFT RECEIVED REPORT FROM ANJANA BARTLETT. PATIENT IS IN BED, BED IS LOCKED AT LOWEST POSITION, BED RAILS UP X2. NO S/SX OF DISTRESS OR SOB. PATIENT DENIES PAIN AT THIS TIME BUT REPORTS ABDOMINAL DISCOMFORT. PATIENT HAS 3 WAY CUEVAS AND HAS BEEN IRRIGATED PERIODICALLY AND IS CLAMPED AT THIS TIME. CUEVAS IS LEAKING MODERATELY. DR TAVERAS IS AWARE PER DAY SHIFT NURSE REPORT. OUT PUT IN CUEVAS BAG IS STRAW COLOR, SLIGHTLY TINGED. BALLOON EMPTIED TO ASSESS VOLUME; 48 MLS WERE PULLED OUT AND REFILLED WITH 3O MLS NS. PATIENT REPORTS COMFORT. WILL CONTINUE TO ASSESS FOR LEAKS, OUTPUT, PAIN AND COMFORT. PATIENT IS CONFUSED, NURSE TRIMMING OPERATOR AT BEDSIDE FOR PATIENT SAFETY.
--- NOTE | 2019-11-16 19:30 | NUR ---
Endorsed care to DHRUV Smith Patient shows no signs of distress.
[2019-11-16 22:00] VITALS: BP 118/59
[2019-11-17 05:00] VITALS: BP 121/75
--- NOTE | 2019-11-17 08:00 | NUR ---
Received pt resting in bed, sitter at bed side, call light with in reach, romano draining to gravity, urine clear yellow, bladder irrigation has been off since yesterday, will continue to monitor pt.
[2019-11-17 08:45] VITALS: BP 119/63
[2019-11-17] MEDS: FAMOTIDINE 20 MG TAB PO SCH (09:45)
[2019-11-17] MEDS: DONEPEZIL HYDROCHLORIDE 5 MG TAB PO SCH (09:46)
[2019-11-17] MEDS: AMIODARONE HCL 200 MG TAB PO SCH ×2 (09:46→22:56)
[2019-11-17] MEDS: TERAZOSIN HCL 1 MG CAP PO SCH (09:46)
[2019-11-17] MEDS: METOPROLOL SUCCINATE XL 50 MG TAB PO SCH ×2 (09:47→22:57)
[2019-11-17] MEDS: ATORVASTATIN 20 MG TAB PO SCH (09:47)
[2019-11-17] MEDS: Ensure Enlive Strawberry 8oz Bottle PO SCH ×3 (09:48→17:42)
--- NOTE | 2019-11-17 10:00 | NUR ---
Pt ambulated with physical therapy and a walker to the restroom and back to bed.
--- NOTE | 2019-11-17 10:46 | NUR ---
Dr. Gibson / urologist informed that pt has not had the irrigation solution on since yesterday, pt has not had any blood clots, pt's urine out put has been clear yellow since yesterday, Received orders from Dr. Gibson/urologist to d/c romano catheter, pt can be d/c from urologist stand point, and to follow up in 2 weeks after d/c.
[2019-11-17 13:34] VITALS: BP 118/87
--- NOTE | 2019-11-17 14:29 | NUR ---
Called and left a message to Dr. Morales to let him know that Dr. Gibson has cleared pt for d/c, romano d/wesley and pt has voided well after.
--- NOTE | 2019-11-17 14:58 | NUR ---
Nutrition Followup Notes Pt wt is 75.8 kg Pt is with a regular diet, appetite is good aeb ave 83% PO intake over 3 meals. Pt with no distress. Will f/u in 3-5 days. Est energy needs BW 63 [id number] kcal (25-30 kcal/kg BW) Est protein needs 63-75g (1.0-1.2g/kg BW) Will reassess prn. LABS: Gluc 113 H, ALb 3.2 L GI: Pt had 6 BM on 11/15 per RN doc BS: 12 high risk. Refer to wound assessment report for full details. PES: Altered nutrition related lab values r.t current medical condition aeb elev BUN hyperglycemia Comments: Continue current plan of care
[2019-11-17 16:48] VITALS: BP 112/62
--- NOTE | 2019-11-17 19:10 | NUR ---
OPENING NOTE- NOC SHIFT PATIENT IS IN BED, BED IS AT LOWEST POSITION. NO SIGNS OR SYMPTOMS OF DISTRESS, SOB OR PAIN. PATIENT IS ALERT AND ORIENTED X3. NURSE ATLASSIAN ADMINISTRATOR AT BEDSIDE FOR SAFETY PRECAUTIONS. WILL CONTINUE TO MONITOR Q1H AND PRN.
[2019-11-17 22:00] VITALS: BP 120/70
[2019-11-18 05:00] VITALS: BP 116/70
--- NOTE | 2019-11-18 08:00 | NUR ---
Received pt resting in bed, call light within reach, no pain reported at this time, bed alarm on, will continue to monitor pt.
[2019-11-18] MEDS: Ensure Enlive Strawberry 8oz Bottle PO SCH ×2 (08:43→13:03)
[2019-11-18] MEDS: TERAZOSIN HCL 1 MG CAP PO SCH (08:44)
[2019-11-18] MEDS: FAMOTIDINE 20 MG TAB PO SCH (08:45)
[2019-11-18] MEDS: ATORVASTATIN 20 MG TAB PO SCH (08:45)
[2019-11-18] MEDS: DONEPEZIL HYDROCHLORIDE 5 MG TAB PO SCH (08:45)
[2019-11-18] MEDS: METOPROLOL SUCCINATE XL 50 MG TAB PO SCH (08:47)
[2019-11-18] MEDS: AMIODARONE HCL 200 MG TAB PO SCH (08:47)
[2019-11-18 10:03] VITALS: BP 112/62
--- NOTE | 2019-11-18 10:16 | NUR ---
Called Dr. Morales and informed him regarding pt urinating with tinge blood, orders received to order a stat CBC,
[2019-11-18 11:02] LABS: Basophils # (auto) 0 10 ^3/uL (0-0.2); Basophils % (auto) 0.4 % (0.0-2.0); Eosinophils # (auto) 0.1 10 ^3/uL (0-0.8); Eosinophils % (auto) 0.9 % (0.0-7.0); Hematocrit 42.3 % (41.0-53.0); Lymphocytes # (auto) 1.3 10 ^3/uL (0.4-5.4); Mean Corpuscular Hgb Conc. 33.1 g/dL (32.0-36.0); Mean Corpuscular Volume 93.4 fL (80.0-100.0); Monocytes # (auto) 0.6 10 ^3/uL (0-1.3); Monocytes % (auto) 7.9 % (0.0-12.0); Neutrophils # (auto) 5.5 10 ^3/uL (1.6-8.6); Neutrophils % (auto) 73.8 % (37.0-80.0); Nucleated Red Blood Cells % 0.1 %; Platelet Count (auto) 147 10^3/uL (140-450); Red Blood Cells 4.53 10^6/uL (4.5-5.90); Red Cell Distribution Width 15.3 % (11.8-14.3); White Blood Cell 7.4 10^3/uL (4.4-10.8)
--- NOTE | 2019-11-18 11:54 | NUR ---
Called and spoke to Dr. Morales to give him the stat CBC results, orders received to d/c pt home and follow up with Dr. Morales and Dr. Gibson as schedule.
--- NOTE | 2019-11-18 11:57 | NUR ---
Called and spoke to Roxi / social media marketing specialist regarding the social work assistant order for home health, as per social work assistant Roxi, pt can be d/c now.
--- NOTE | 2019-11-18 11:58 | NUR ---
Called and spoke to pt's Renate to discussed the discharge plan, and inform that pt is been d/c today and to flower buncher or picker pt.
--- NOTE | 2019-11-18 14:40 | NUR ---
Discharge instructions given as ordered. Encourage to follow up with PMD as instructed. All questions and concerns addressed. Patient and pt's verbalized understanding. Medication reconciliation form completed and copy given to patient. Home medications held in Pharmacy returned to patient, and no needed vaccines to be given. IV removed with catheter intact, pressure dressing applied. Telemetry unit returned to ICU.
--- NOTE | 2019-11-18 14:44 | NUR ---
D/C Planning Regarding social service consult for home health with [facility]. Faxed clinical information to agency. Per Evelio with [facility] they will resume care within 24-48hrs upon d/c day.
--- NOTE | 2019-11-18 14:55 | NUR ---
Dr. Morales at bed side to see pt.
--- NOTE | 2019-11-18 15:10 | NUR ---
Patient taken to vehicle via wheelchair with all personal belongings, accompanied by staff, family member awaiting out in the lobby. No distress noted at time of departure.
== END 2019-11-18 15:10 | disposition home health service (06) | DRG 713 ==
LOC: ER 16:07 → TELE 16:08 → TELE-WESTW 11-05 12:47
PROVIDERS: ADMIT Internal Medicine Cardiovascular Disease; ATTEND Internal Medicine Cardiovascular Disease
PROC: 0VB08ZZ Excision of Prostate, Via Natural or Artificial Opening Endoscopic (ICD-10-PCS; principal; 2019-11-13 12:16)
DX: N40.1 Benign prostatic hyperplasia with lower urinary tract symptoms (principal); N39.0 Urinary tract infection, site not specified; I48.91 Unspecified atrial fibrillation; I25.10 Atherosclerotic heart disease of native coronary artery without angina pectoris; R33.8 Other retention of urine; R31.0 Gross hematuria; N41.9 Inflammatory disease of prostate, unspecified; I10 Essential (primary) hypertension; R55 Syncope and collapse; F03.90 Unspecified dementia, unspecified severity, without behavioral disturbance, psychotic disturbance, mood disturbance, and anxiety; Z95.1 Presence of aortocoronary bypass graft; Z78.1 Physical restraint status; Z82.0 Family history of epilepsy and other diseases of the nervous system; Z82.49 Family history of ischemic heart disease and other diseases of the circulatory system
CPT/HCPCS: 36415; 71045; 80048; 80053; 81001; 82565; 83605; 83735; 83880; 85007; 85025; 85027; 85610; 85730; 87040; 87081; 87086; 93005; 94640; 97110; 97116; 97163; 97530; G0378; J0696; J1885; J2250; J2405; J2704

== ENCOUNTER → 2019-12-05 | Outpatient (CLI) | payer MEDICARE, OTHER ==
[~2019-12-05] MED LIST changes: +BRIM0.1S3 OP; +BRIN1SUS OP; +FINA5TAB4 PO; +MAGN400C4 PO; +MED20T PO; +OLME20TA53 PO; +PANT40TA2 PO; +RIV20T PO; +SOTA80TA62 PO; +TAMS0.4C36 PO; +TIMO0.5S67 OP; +TIOT17SP IN; -TIOTCAP INH; -WARF4TAB2 PO; -[UNRECOGNIZED DRUG - CODE] PO
== END | disposition home or self-care (01) ==
LOC: Rad HDHVI 15:07
PROVIDERS: ATTEND Internal Medicine Cardiovascular Disease
DX: I50.43 Acute on chronic combined systolic (congestive) and diastolic (congestive) heart failure (principal); I48.19 Other persistent atrial fibrillation; R09.89 Other specified symptoms and signs involving the circulatory and respiratory systems
CPT/HCPCS: 93306

== ENCOUNTER → 2020-03-05 | Outpatient (CLI) | payer MEDICARE, OTHER ==
[~2020-03-05] MED LIST changes: +POTA10TA51 PO
[2020-03-05 11:35] VITALS: BP 117/65
--- NOTE | 2020-03-05 11:35 | NUR ---
CLINIC PT ARRIVED TO THE [facility] FOR PRE OP EKG, CXR, AND LABS FOR PACEMAKER GENT CHANGE, A/OX4, AMBULATORY WITH WALKER, ASSISTED BY FAMILY. BREATHING IS EVEN AND UNLABORED.
--- NOTE | 2020-03-05 11:58 | NUR ---
EKG DONE BY LULI MARES REVIEWED BY CALEB BARTLETT AV PACED 80
[2020-03-05 12:05] VITALS: BP 135/62
--- NOTE | 2020-03-05 12:05 | NUR ---
Pre-Op Discharge Summary: See e-MAR for any medications given for this visit. Pre-op orders received and carried out per MD of EKG, LABS and chest xrays. Patient given a copy of EKG with instructions to go to [facility] out patient for further follow up care. NOTE EKG DONE BY LULI MARES REVIEWED BY CALEB BARTLETT
[2020-03-05 12:10] LABS: Basophils # (auto) 0.1 10 ^3/uL (0-0.2); Basophils % (auto) 0.8 % (0.0-2.0); Eosinophils # (auto) 0.3 10 ^3/uL (0-0.8); Eosinophils % (auto) 3.4 % (0.0-7.0); Hematocrit 36.9 % (41.0-53.0); Lymphocytes # (auto) 1.8 10 ^3/uL (0.4-5.4); Lymphocytes % (auto) 23.2 % (10.0-50.0); Mean Corpuscular Hemoglobin 27.3 pg (28.0-32.0); Mean Corpuscular Hgb Conc. 32.5 g/dL (32.0-36.0); Mean Corpuscular Volume 83.9 fL (80.0-100.0); Monocytes # (auto) 0.8 10 ^3/uL (0-1.3); Monocytes % (auto) 10.2 % (0.0-12.0); Neutrophils # (auto) 4.8 10 ^3/uL (1.6-8.6); Neutrophils % (auto) 62.4 % (37.0-80.0); Platelet Count (auto) 271 10^3/uL (140-450); Red Cell Distribution Width 16.2 % (11.8-14.3); White Blood Cell 7.6 10^3/uL (4.4-10.8)
[2020-03-05 12:16] LABS: Potassium 3.7 mmol/L (3.5-5.1)
[2020-03-05 12:19] LABS: INR 1.14 (0.9-1.15); Partial Thromboplastin Time 30.1 sec (23.0-31.2)
[2020-03-05 12:54] LABS: BUN/Creatinine Ratio 16.2; Calcium 8.6 mg/dL (8.5-10.1)
== END | disposition home or self-care (01) ==
LOC: Rad HDHVI 11:19
PROVIDERS: ATTEND Internal Medicine Cardiovascular Disease
DX: Z01.812 Encounter for preprocedural laboratory examination (principal); Z45.018 Encounter for adjustment and management of other part of cardiac pacemaker; I70.0 Atherosclerosis of aorta; M85.80 Other specified disorders of bone density and structure, unspecified site; J44.9 Chronic obstructive pulmonary disease, unspecified; I42.0 Dilated cardiomyopathy; I25.10 Atherosclerotic heart disease of native coronary artery without angina pectoris; I10 Essential (primary) hypertension; R06.02 Shortness of breath
CPT/HCPCS: 36415; 71046; 80048; 85025; 85610; 85730; 93005; G0463

== ENCOUNTER 2020-03-11 07:55 | Inpatient (IN) | payer MEDICARE, OTHER ==
[~2020-03-11] VITALS: Ht 200.7 cm; Wt 73.5 kg
[~2020-03-11 07:55] MED LIST changes: -BRIM0.1S3 OP; -BRIN1SUS OP; -BUDE1SUS9; -DEXL60CA4 PO; -DONE10TA17 PO; -IPRAAER6 IN; -MAGN400C4 PO; -MED20T PO; -METO-6 PO; -PANT40TA2 PO; -SIMV40TA96 PO; -TAMS0.4C36 PO; -TER5T PO; -TIMO0.5S67 OP; -TIOT17SP IN
[2020-03-11] MEDS ORDERED: VANCOMYCIN 1GM/250ML 250 ML IV ONE ×2 (09:45→09:52)
[2020-03-11] MEDS ORDERED: fentaNYL CITRATE 100 MCG/2 ML VL ONE (11:34)
[2020-03-11] MEDS ORDERED: MIDAZOLAM HCL 1MG/1ML-2 ML VIAL ONE (11:34)
[2020-03-11] MEDS ORDERED: LIDOCAINE 2%HCL (LOCAL ANESTH.) INJ 20ML MDV ONE (11:34)
[2020-03-11] MEDS ORDERED: VANCOMYCIN HCL 1000 MG VL ONE (11:34)
[2020-03-11] MEDS ORDERED: NITROGLYCERIN 0.4 MG SL TAB SL PRN (12:30)
[2020-03-11] MEDS ORDERED: HYDROcodone-ACET 5/325MG TAB PO PRN (12:30)
[2020-03-11] MEDS ORDERED: MORPHINE SULF INJ 2 MG/ML SYRINGE 1ML IV PRN (12:30)
[2020-03-11] MEDS ORDERED: ACETAMINOPHEN 325 MG TAB PO PRN (12:30)
[2020-03-11] MEDS ORDERED: levoFLOXacin 500MG 100 ML IV ONE (12:30)
--- NOTE | 2020-03-11 17:50 | NUR ---
Report received from Kizzy BARTLETT. ZACHARY COURTNEY brought to bed 223A following pacemaker change, on ortho tech. Patient transferred to unit bed, connected to base remover #[id number] afib/ aflutter . Pacemaker site assessed for any bleeding, redness or swelling. dressings noted to be clean, dry and intact. Patient orientated to staff, unit and routine All questions and concerns addressed, patient verbalized understanding of all education and instruction. Bed kept on lowest position,brakes on, side rails up x2 and bed alarm on. Admission assessment done and charted. Will continue to monitor patient.
[2020-03-11] MEDS ORDERED: OLME1TAB23 PO (18:34)
[2020-03-11] MEDS ORDERED: LATA0.0020 LEFTEYE (18:34)
[2020-03-11] MEDS ORDERED: TIMO0.5S66 LEFTEYE (18:34)
[2020-03-11] MEDS ORDERED: DONE10TA17 PO (18:34)
[2020-03-11] MEDS ORDERED: TAM04C PO (18:34)
[2020-03-11] MEDS ORDERED: BRIN1SUS LEFTEYE (18:34)
[2020-03-11] MEDS ORDERED: BRIM0.1S3 LEFTEYE (18:34)
[2020-03-11 22:00] VITALS: BP 129/69
[2020-03-11] MEDS: SOTALOL HCL 80 MG TAB PO SCH (22:08)
[2020-03-12 04:57] VITALS: BP 122/75
--- NOTE | 2020-03-12 07:00 | NUR ---
DRESSING TO LEFT UPPER CHEST REMAINS C/D/I. NO BLEEDING SWELLING NOTED AT SITE. PULSES INTACT BILATERALLY.
--- NOTE | 2020-03-12 07:40 | NUR ---
PATIENT LYING IN BED COMFORTABLY SLEEPING AND OPENED HIS EYES WHEN SPOKEN TO. PATIENT VOICED NO C/O PAIN/ DISCOMFORT AND PATIENT WAS IN NO DISTRESS. SHIFT ASSESSMENT DONE AND CHARTED. PLAN OF CARE, NEDS, TREATMENTS AND SAFETY DISCUSSED WITH PATIENT AND PATIENT VERBALIZED UNDERSTANDING. LEFT UPPER CHEST PACEMAKER DRESSINGS NOTED TO BE CLEAN, DRY AND INTACT AND NO SWELLING, BLEEDING NOTED ON THE SITE. WILL CONTINUE TO MONITOR PATIENT.
[2020-03-12 09:00] VITALS: BP 118/64
[2020-03-12] MEDS ORDERED: FUROSEMIDE 40 MG TAB PO SCH (10:00)
[2020-03-12] MEDS ORDERED: LOSARTAN POTASSIUM 50 MG TAB PO SCH (10:00)
[2020-03-12] MEDS ORDERED: POTASSIUM CHL 10 Meq TABLET PO SCH (10:00)
[2020-03-12] MEDS ORDERED: FINASTERIDE 5 MG TAB PO SCH (10:00)
[2020-03-12] MEDS: SOTALOL HCL 80 MG TAB PO SCH (10:41)
--- NOTE | 2020-03-12 10:50 | NUR ---
DR. TAVERAS LEFT ORDERS FOR PATIENT'S DISCHARGE TO HOME AND PATIENT MADE AWARE OF SAME.
[2020-03-12 13:00] VITALS: BP 146/82
--- NOTE | 2020-03-12 13:38 | NUR ---
assessment Patient is a 89 year old male who is answering appropriate. Per patient prior to admission he live home with his Renate and needed assistance. Patients PCP is Dr Morales. Patient is on service with [facility] Patient has a resumption order for home health on discharge. Patient also has a ss consult for needing more help at home. Per patient he does not need more help. Patient asked me to call his Renate to see if there are any needs. Patient has a fww and nebulizer for home use. I called Renate and she informed me patient has no needs for more help at home. Renate asked for home health to resume. I informed Renate I have a ss consult for resuming home health and Per Renate send to [facility]. MD order has been sent to [facility]. Per Jaylene at [facility] service will resume within 48 hours. I will continue to monitor and follow up as appropriate. I informed patient he has a right to participate in any and all discharge planning. Patient has a POA and advanced directive. Patient verbalized understanding and agreed to discharge plan. Addendum: 03/12/20 at 1344 by Roxi LOVE Amended: Links added.
[2020-03-12 13:58] VITALS: BP 146/82
--- NOTE | 2020-03-12 15:10 | NUR ---
PHONED PATIENT'S THAT PATIENT IS READY TO GO HOME. SHE STATED THAT SHE WILL BE ON HER WAY SOON.
--- NOTE | 2020-03-12 16:50 | NUR ---
Discharge instructions given as ordered to patient's Nataliia. Encourage to follow up with PMD as instructed. All questions and concerns addressed. Patient verbalized understanding. Medication reconciliation form completed and copy given to patient. IV removed with catheter intact, pressure dressing applied, romano catheter removed. Telemetry unit returned to ICU. Patient taken to vehicle via wheelchair with all personal belongings, accompanied by staff and family member. No distress noted at time of departure.
== END 2020-03-12 16:50 | disposition home health service (06) | DRG 259 ==
LOC: CATH 07:55 → TELE 07:56 → TELE-CENTR 18:01
PROVIDERS: ADMIT Internal Medicine Cardiovascular Disease; ATTEND Internal Medicine Cardiovascular Disease
PROC: 0JPT0PZ Removal of Cardiac Rhythm Related Device from Trunk Subcutaneous Tissue and Fascia, Open Approach (ICD-10-PCS; principal; 2020-03-11)
PROC: 0JH606Z Insertion of Pacemaker, Dual Chamber into Chest Subcutaneous Tissue and Fascia, Open Approach (ICD-10-PCS; 2020-03-11)
DX: I49.5 Sick sinus syndrome (principal); D68.59 Other primary thrombophilia; Z68.1 Body mass index [BMI] 19.9 or less, adult; I35.0 Nonrheumatic aortic (valve) stenosis; F09 Unspecified mental disorder due to known physiological condition; N40.0 Benign prostatic hyperplasia without lower urinary tract symptoms; E78.5 Hyperlipidemia, unspecified; I25.10 Atherosclerotic heart disease of native coronary artery without angina pectoris; Z20.828 Contact with and (suspected) exposure to other viral communicable diseases; R63.4 Abnormal weight loss; I10 Essential (primary) hypertension; I48.0 Paroxysmal atrial fibrillation; Z79.01 Long term (current) use of anticoagulants; Z86.73 Personal history of transient ischemic attack (TIA), and cerebral infarction without residual deficits
CPT/HCPCS: 33208; 33228; 99152; 99153; C1785; G0378; J1956; J2250

== ENCOUNTER → 2020-08-03 | Outpatient (CLI) | payer MEDICARE, OTHER ==
[~2020-08-03] MED LIST changes: +BACITRACIN TOP OINT 1 UD PKG TOP ONE; +BRIM0.1S3 LEFTEYE; +BRIN1SUS LEFTEYE; +DONE10TA5 PO; +LATA0.0020 LEFTEYE; +OLME1TAB23 PO; -OLME20TA53 PO; +TAM04C PO; +TIMO0.5S66 LEFTEYE
[2020-08-03 12:52] VITALS: BP 145/80
[2020-08-03 13:30] VITALS: BP 124/71
== END | disposition home or self-care (01) ==
LOC: CHF HDHVI 12:57
PROVIDERS: ATTEND Internal Medicine Cardiovascular Disease
DX: S51.801D Unspecified open wound of right forearm, subsequent encounter (principal); X58.XXXD Exposure to other specified factors, subsequent encounter
CPT/HCPCS: G0463

== ENCOUNTER → 2020-08-04 | Outpatient (CLI) | payer MEDICARE, OTHER ==
[~2020-08-04] VITALS: Ht 30.5 cm; Wt 68.0 kg
[2020-08-04 13:30] VITALS: BP 140/78
[2020-08-04 13:40] VITALS: BP 140/78
== END | disposition home or self-care (01) ==
LOC: CHF HDHVI 13:24
PROVIDERS: ATTEND Internal Medicine Cardiovascular Disease
DX: S51.812A Laceration without foreign body of left forearm, initial encounter (principal); X58.XXXA Exposure to other specified factors, initial encounter; Y93.89 Activity, other specified; Y92.89 Other specified places as the place of occurrence of the external cause; Y99.8 Other external cause status
CPT/HCPCS: G0463

== ENCOUNTER 2020-11-06 22:12 | Inpatient (IN) | payer MEDICARE, OTHER ==
[~2020-11-06] VITALS: Ht 2.5 cm; Wt 74.0 kg
[~2020-11-06 22:12] MED LIST changes: -BACITRACIN TOP OINT 1 UD PKG TOP ONE; -OLME1TAB23 PO; +OLME1TAB73 PO
[2020-11-06 22:45] VITALS: BP 131/66
[2020-11-06] MEDS ORDERED: CEPH500T PO (23:31)
[2020-11-06 23:33] VITALS: BP 131/66
[2020-11-07] MEDS: SODIUM CHLORIDE 0.9% 1,000 ML IV SCH ×2 (01:02→14:00)
[2020-11-07 05:54] VITALS: BP 141/91
[2020-11-07] MEDS: HYDROmorphone HCL 2 MG/ML VL IV PRN ×3 (06:10→18:43)
[2020-11-07 09:00] VITALS: BP 133/78
[2020-11-07] MEDS ORDERED: PATIENTS OWN MEDICATION PO SCH (10:00)
[2020-11-07] MEDS: PANTOPRAZOLE 40 MG/10 ML VIAL INJ IV SCH (10:19)
[2020-11-07] MEDS: CEPHALEXIN 250 MG CAP PO SCH ×3 (10:19→18:39)
[2020-11-07] MEDS: SOTALOL HCL 80 MG TAB PO SCH ×2 (10:20→22:00)
[2020-11-07] MEDS: LOSARTAN POTASSIUM 50 MG TAB PO SCH (10:20)
[2020-11-07] MEDS: FINASTERIDE 5 MG TAB PO SCH (10:21)
[2020-11-07 12:49] VITALS: BP 151/75
[2020-11-07 16:17] LABS: Basophils # (auto) 0.1 10 ^3/uL (0-0.2); Basophils % (auto) 0.6 % (0.0-2.0); Eosinophils # (auto) 0.3 10 ^3/uL (0-0.8); Eosinophils % (auto) 2.5 % (0.0-7.0); Hemoglobin 11.2 g/dL (13.5-17.5); Lymphocytes # (auto) 1.1 10 ^3/uL (0.4-5.4); Mean Corpuscular Hemoglobin 25.7 pg (28.0-32.0); Mean Corpuscular Hgb Conc. 32.9 g/dL (32.0-36.0); Mean Corpuscular Volume 78.4 fL (80.0-100.0); Monocytes # (auto) 1.5 10 ^3/uL (0-1.3); Monocytes % (auto) 11.9 % (0.0-12.0); Neutrophils # (auto) 9.7 10 ^3/uL (1.6-8.6); Nucleated Red Blood Cells % 0.1 %; Red Blood Cells 4.34 10^6/uL (4.5-5.90); Red Cell Distribution Width 16.4 % (11.8-14.3); White Blood Cell 12.8 10^3/uL (4.4-10.8)
[2020-11-07 16:33] LABS: Albumin 2.7 g/dL (3.4-5.0); Calcium 7.6 mg/dL (8.5-10.1); Potassium 4.1 mmol/L (3.5-5.1)
[2020-11-07 16:35] LABS: INR 1.1 (0.9-1.15)
[2020-11-07 16:37] LABS: BUN/Creatinine Ratio 23.9
[2020-11-07 16:39] VITALS: BP 141/71
[2020-11-07 22:00] VITALS: BP 120/68
[2020-11-07] MEDS: MUPIROCIN 2% OINT 15gm or 22gm EACHNOSTRI SCH (22:32)
[2020-11-07 23:16] LABS: Urine Bacteria NONE SEEN /hpf (None Seen); Urine Blood 2+ /uL (Negative); Urine Mucus FEW (None Seen); Urine Specific Gravity 1.026 (1.001-1.035); Urine WBC 7 /hpf (0 - 3)
[2020-11-07] MEDS ORDERED: LORazepam 2MG/ML-1ML VIAL IV PRN (23:30)
[2020-11-08] MEDS: SODIUM CHLORIDE 0.9% 1,000 ML IV SCH ×2 (02:40→17:00)
[2020-11-08 05:00] VITALS: BP 142/88
[2020-11-08] MEDS: CEPHALEXIN 250 MG CAP PO SCH ×4 (05:38→18:09)
[2020-11-08] MEDS: HYDROmorphone HCL 2 MG/ML VL IV PRN ×3 (06:00→18:33)
[2020-11-08 06:15] LABS: Cholesterol 112 mg/dL (< 200); HDL Cholesterol 34 mg/dL (40-59); LDL Cholesterol 70 mg/dL (< 100); Triglycerides 70 mg/dL (< 150)
[2020-11-08 09:00] VITALS: BP 132/89
[2020-11-08] MEDS: SOTALOL HCL 80 MG TAB PO SCH ×2 (09:31→22:00)
[2020-11-08] MEDS: FINASTERIDE 5 MG TAB PO SCH (09:31)
[2020-11-08] MEDS: LOSARTAN POTASSIUM 50 MG TAB PO SCH (09:32)
[2020-11-08] MEDS: MUPIROCIN 2% OINT 15gm or 22gm EACHNOSTRI SCH ×2 (09:32→22:00)
[2020-11-08] MEDS: PANTOPRAZOLE 40 MG/10 ML VIAL INJ IV SCH (09:32)
[2020-11-08 11:12] LABS: Folate (Folic Acid) 5.06 ng/mL (5.38-24)
[2020-11-08 13:00] VITALS: BP 111/71
[2020-11-08] MEDS: ENOXAPARIN SOD 60 MG/0.6 ML SYRINGE SC SCH ×2 (16:49→22:00)
[2020-11-08 16:54] VITALS: BP 144/94
[2020-11-08 20:00] VITALS: BP 107/63
[2020-11-08 22:00] VITALS: BP 141/68
[2020-11-09] MEDS: CEPHALEXIN 250 MG CAP PO SCH ×4 (00:12→18:20)
[2020-11-09] MEDS: HYDROmorphone HCL 2 MG/ML VL IV PRN (04:17)
[2020-11-09 05:00] VITALS: BP 152/74
[2020-11-09] MEDS: SODIUM CHLORIDE 0.9% 1,000 ML IV SCH (05:35)
[2020-11-09 09:00] VITALS: BP 145/88
[2020-11-09] MEDS: LOSARTAN POTASSIUM 50 MG TAB PO SCH (10:00)
[2020-11-09] MEDS: MUPIROCIN 2% OINT 15gm or 22gm EACHNOSTRI SCH ×2 (10:00→22:00)
[2020-11-09] MEDS: FINASTERIDE 5 MG TAB PO SCH (10:00)
[2020-11-09] MEDS: PANTOPRAZOLE 40 MG/10 ML VIAL INJ IV SCH (10:00)
[2020-11-09] MEDS: SOTALOL HCL 80 MG TAB PO SCH ×2 (10:00→22:00)
[2020-11-09] MEDS: ENOXAPARIN SOD 60 MG/0.6 ML SYRINGE SC SCH ×2 (10:00→22:00)
[2020-11-09] MEDS ORDERED: BUPIVACAINE 0.5% P/F INJ 10 ML VIAL ONE (10:11)
[2020-11-09] MEDS ORDERED: CLINDAMYCIN 600MG IV 50 ML IV ONE (10:36)
[2020-11-09] MEDS ORDERED: NITROGLYCERIN 0.4 MG SL TAB SL PRN (10:45)
[2020-11-09] MEDS ORDERED: MORPHINE SULFATE INJECTION 2 MG/ML SYRG IV PRN (10:45)
[2020-11-09] MEDS ORDERED: PHENYLEPHRINE HCL 10 MG/ML VL IV ONE (11:01)
[2020-11-09] MEDS ORDERED: fentaNYL CITRATE 100 MCG/2 ML VL ONE (11:05)
[2020-11-09] MEDS ORDERED: MIDAZOLAM HCL 2MG/2ML 2ml VIAL (1mg/ml) ONE (11:06)
[2020-11-09] MEDS ORDERED: PROPOFOL 10 MG/ML 20 ML IV ONE (11:30)
[2020-11-09] MEDS ORDERED: DexAMETHasone SOD PHOS 10MG/1ML VIAL INJ ONE (11:30)
[2020-11-09] MEDS ORDERED: ePHEDrine SULFATE 50 MG/ML AMP IV PRN (11:45)
[2020-11-09] MEDS ORDERED: LABETALOL HCL 5 MG/ML 4ML SYRINGE IV PRN (11:45)
[2020-11-09] MEDS ORDERED: MIDAZOLAM HCL 2MG/2ML 2ml VIAL (1mg/ml) IV PRN (11:45)
[2020-11-09] MEDS ORDERED: MORPHINE SULFATE 4 MG/ML SYR/VIAL IV PRN (11:45)
[2020-11-09] MEDS ORDERED: BUPIVACAINE 0.5% MPF INJ 30ML SDV IJ ONE (11:46)
[2020-11-09] MEDS ORDERED: POTASSIUM CHL 20MEQ/100ML 100 ML IV ONE (14:00)
[2020-11-09] MEDS ORDERED: FUROSEMIDE 40 MG/4 ML VIAL IV ONE (14:00)
[2020-11-09] MEDS ORDERED: FUROSEMIDE 20 MG/2 ML VIAL ONE (14:15)
[2020-11-09] MEDS: cloNIDine 0.2 mg/24hr 7DAY PATCH TD SCH (16:18)
[2020-11-09 17:00] VITALS: BP 154/91
[2020-11-09] MEDS: LACTATED RINGER'S 1,000 ML IV SCH ×2 (17:00→22:45)
[2020-11-09] MEDS: CLINDAMYCIN 600MG IV 50 ML IV SCH (18:20)
[2020-11-09 20:00] VITALS: BP 133/65
[2020-11-09 22:00] VITALS: BP 133/65
[2020-11-10] VITALS (7 sets, daily range): BP systolic 104–152; BP diastolic 64–78
[2020-11-10 05:44] LABS: Basophils # (auto) 0 10 ^3/uL (0-0.2); Basophils % (auto) 0.1 % (0.0-2.0); Eosinophils # (auto) 0 10 ^3/uL (0-0.8)
[2020-11-10 05:45] LABS: Hematocrit 36.5 % (41.0-53.0); Hemoglobin 11.9 g/dL (13.5-17.5); Lymphocytes # (auto) 0.6 10 ^3/uL (0.4-5.4); Lymphocytes % (auto) 6.6 % (10.0-50.0); Mean Corpuscular Hemoglobin 25.3 pg (28.0-32.0); Mean Corpuscular Hgb Conc. 32.7 g/dL (32.0-36.0); Mean Corpuscular Volume 77.4 fL (80.0-100.0); Monocytes # (auto) 0.8 10 ^3/uL (0-1.3); Monocytes % (auto) 8.3 % (0.0-12.0); Neutrophils # (auto) 7.9 10 ^3/uL (1.6-8.6); Red Blood Cells 4.72 10^6/uL (4.5-5.90); Red Cell Distribution Width 16.8 % (11.8-14.3); White Blood Cell 9.3 10^3/uL (4.4-10.8)
[2020-11-10] MEDS: CLINDAMYCIN 600MG IV 50 ML IV SCH ×2 (06:00)
[2020-11-10] MEDS: CEPHALEXIN 250 MG CAP PO SCH ×4 (06:00→18:28)
[2020-11-10 06:16] LABS: BUN/Creatinine Ratio 26.5; Calcium 8.1 mg/dL (8.5-10.1); Potassium 4.1 mmol/L (3.5-5.1)
[2020-11-10] MEDS: LACTATED RINGER'S 1,000 ML IV SCH ×2 (08:45→18:45)
[2020-11-10] MEDS: FOLIC ACID 1 MG in D5W 5% 50 ML INJ SCH (10:00)
[2020-11-10] MEDS: MUPIROCIN 2% OINT 15gm or 22gm EACHNOSTRI SCH ×2 (10:00→22:00)
[2020-11-10] MEDS: PANTOPRAZOLE 40 MG/10 ML VIAL INJ IV SCH (11:16)
[2020-11-10] MEDS: SOTALOL HCL 80 MG TAB PO SCH ×2 (11:16→22:00)
[2020-11-10] MEDS: ENOXAPARIN SOD 60 MG/0.6 ML SYRINGE SC SCH ×2 (11:17→22:00)
[2020-11-10] MEDS: FINASTERIDE 5 MG TAB PO SCH (11:17)
[2020-11-10] MEDS: LOSARTAN POTASSIUM 50 MG TAB PO SCH (11:17)
[2020-11-10] MEDS: HYDROmorphone HCL 2 MG/ML VL IV PRN (20:00)
[2020-11-10] MEDS: ACETAMINOPHEN 325 MG TAB PO PRN (22:45)
[2020-11-11] MEDS: HYDROmorphone HCL 2 MG/ML VL IV PRN (02:33)
[2020-11-11] MEDS: LACTATED RINGER'S 1,000 ML IV SCH ×2 (04:45→14:45)
[2020-11-11 05:47] VITALS: BP 107/63
[2020-11-11] MEDS: CEPHALEXIN 250 MG CAP PO SCH ×4 (06:27→18:01)
[2020-11-11 07:20] LABS: Hematocrit 31.5 % (41.0-53.0); Hemoglobin 10.4 g/dL (13.5-17.5)
[2020-11-11 08:39] VITALS: BP 110/66
[2020-11-11] MEDS: PANTOPRAZOLE 40 MG/10 ML VIAL INJ IV SCH (09:57)
[2020-11-11] MEDS: SOTALOL HCL 80 MG TAB PO SCH ×2 (09:58→22:00)
[2020-11-11] MEDS: ENOXAPARIN SOD 60 MG/0.6 ML SYRINGE SC SCH ×2 (09:58→22:00)
[2020-11-11] MEDS: FINASTERIDE 5 MG TAB PO SCH (09:58)
[2020-11-11] MEDS: LOSARTAN POTASSIUM 50 MG TAB PO SCH (09:59)
[2020-11-11] MEDS: FOLIC ACID 1 MG in D5W 5% 50 ML INJ SCH (10:00)
[2020-11-11] MEDS: MUPIROCIN 2% OINT 15gm or 22gm EACHNOSTRI SCH ×2 (10:00→22:01)
[2020-11-11 13:00] VITALS: BP 121/76
[2020-11-11 16:41] VITALS: BP 113/72
[2020-11-11 22:00] VITALS: BP 123/62
[2020-11-12] VITALS (7 sets, daily range): BP systolic 103–135; BP diastolic 58–73
[2020-11-12] MEDS: LACTATED RINGER'S 1,000 ML IV SCH ×2 (00:45→10:33)
[2020-11-12] MEDS: CEPHALEXIN 250 MG CAP PO SCH ×4 (00:47→18:36)
[2020-11-12] MEDS: HYDROmorphone HCL 2 MG/ML VL IV PRN (05:33)
[2020-11-12 06:26] LABS: Hemoglobin 10.9 g/dL (13.5-17.5)
[2020-11-12 06:30] LABS: Hematocrit 32.7 % (41.0-53.0)
[2020-11-12] MEDS: MUPIROCIN 2% OINT 15gm or 22gm EACHNOSTRI SCH (10:30)
[2020-11-12] MEDS: SOTALOL HCL 80 MG TAB PO SCH ×2 (10:31→21:29)
[2020-11-12] MEDS: FOLIC ACID 1 MG in D5W 5% 50 ML INJ SCH (10:31)
[2020-11-12] MEDS: PANTOPRAZOLE 40 MG/10 ML VIAL INJ IV SCH (10:31)
[2020-11-12] MEDS: LOSARTAN POTASSIUM 50 MG TAB PO SCH (10:31)
[2020-11-12] MEDS: ENOXAPARIN SOD 60 MG/0.6 ML SYRINGE SC SCH ×2 (10:32→21:30)
[2020-11-12] MEDS: FINASTERIDE 5 MG TAB PO SCH (10:32)
[2020-11-12] MEDS ORDERED: LIDOCAINE 2%HCL (LOCAL ANESTH.) INJ 20ML MDV ONE (13:41)
[2020-11-12] MEDS ORDERED: IODIXANOL 320MG/ML 100ML BTL IV ONE (13:41)
[2020-11-12] MEDS ORDERED: ANGIOMAX 250 MG VIAL IV ONE (15:33)
[2020-11-12] MEDS ORDERED: SODIUM CHL 0.9% 0 ML ONE (15:33)
[2020-11-12] MEDS ORDERED: GLYCOPYRROLATE 0.2 MG/ML 1ML VIAL ONE (15:46)
[2020-11-12] MEDS ORDERED: PHENYLEPHRINE HCL 10 MG/ML VL ONE (15:46)
[2020-11-13] MEDS: CEPHALEXIN 250 MG CAP PO SCH ×4 (01:26→17:50)
[2020-11-13] MEDS: HYDROmorphone HCL 2 MG/ML VL IV PRN ×2 (01:35→21:21)
[2020-11-13 04:39] VITALS: BP 113/61
[2020-11-13 09:00] VITALS: BP 138/73
[2020-11-13] MEDS: FINASTERIDE 5 MG TAB PO SCH (10:55)
[2020-11-13] MEDS: ENOXAPARIN SOD 60 MG/0.6 ML SYRINGE SC SCH ×2 (10:55→21:20)
[2020-11-13] MEDS: SOTALOL HCL 80 MG TAB PO SCH ×2 (10:55→21:20)
[2020-11-13] MEDS: PANTOPRAZOLE 40 MG/10 ML VIAL INJ IV SCH (10:55)
[2020-11-13] MEDS: LOSARTAN POTASSIUM 50 MG TAB PO SCH (10:56)
[2020-11-13] MEDS: FOLIC ACID 1 MG in D5W 5% 50 ML INJ SCH (10:59)
[2020-11-13 13:00] VITALS: BP_SYST 114; BP_SYST 115; BP_DIAS 61; BP_DIAS 64
[2020-11-13 17:00] VITALS: BP 130/70
[2020-11-13 21:11] VITALS: BP 100/53
[2020-11-14 05:19] VITALS: BP 125/63
[2020-11-14] MEDS: CEPHALEXIN 250 MG CAP PO SCH ×5 (05:43→23:59)
[2020-11-14] MEDS: Ensure HIGH Protein Chocolate 8oz Bottle PO SCH ×3 (08:16→17:47)
[2020-11-14 09:00] VITALS: BP 120/62
[2020-11-14] MEDS: PANTOPRAZOLE 40 MG/10 ML VIAL INJ IV SCH (10:04)
[2020-11-14] MEDS: FINASTERIDE 5 MG TAB PO SCH (10:04)
[2020-11-14] MEDS: SOTALOL HCL 80 MG TAB PO SCH ×2 (10:04→22:00)
[2020-11-14] MEDS: ENOXAPARIN SOD 60 MG/0.6 ML SYRINGE SC SCH ×2 (10:04→22:02)
[2020-11-14] MEDS: FOLIC ACID 1 MG in D5W 5% 50 ML INJ SCH (10:07)
[2020-11-14 12:00] VITALS: BP 114/64
[2020-11-14 16:54] VITALS: BP 115/64
[2020-11-14] MEDS: ACETAMINOPHEN 325 MG TAB PO PRN (17:51)
[2020-11-14] MEDS: HYDROmorphone HCL 2 MG/ML VL IV PRN (19:06)
[2020-11-14 22:00] VITALS: BP 120/69
[2020-11-14] MEDS: SACUBITRIL-VALSARTAN 24mg/26mg TAB PO SCH (22:01)
[2020-11-15 05:00] VITALS: BP 136/67
[2020-11-15] MEDS: CEPHALEXIN 250 MG CAP PO SCH ×3 (06:33→18:04)
[2020-11-15 09:00] VITALS: BP 139/63
[2020-11-15] MEDS: PANTOPRAZOLE 40 MG/10 ML VIAL INJ IV SCH (10:08)
[2020-11-15] MEDS: HYDROmorphone HCL 2 MG/ML VL IV PRN ×2 (10:09→17:35)
[2020-11-15] MEDS: ENOXAPARIN SOD 60 MG/0.6 ML SYRINGE SC SCH ×2 (10:09→21:48)
[2020-11-15] MEDS: SACUBITRIL-VALSARTAN 24mg/26mg TAB PO SCH ×2 (10:09→21:48)
[2020-11-15] MEDS: SOTALOL HCL 80 MG TAB PO SCH ×2 (10:10→21:48)
[2020-11-15] MEDS: FINASTERIDE 5 MG TAB PO SCH (10:10)
[2020-11-15] MEDS: FOLIC ACID 1 MG in D5W 5% 50 ML INJ SCH (10:11)
[2020-11-15] MEDS: Ensure HIGH Protein Chocolate 8oz Bottle PO SCH ×3 (10:27→18:03)
[2020-11-15 10:38] LABS: Basophils # (auto) 0.1 10 ^3/uL (0-0.2); Basophils % (auto) 0.9 % (0.0-2.0); Eosinophils # (auto) 0.2 10 ^3/uL (0-0.8); Eosinophils % (auto) 1.6 % (0.0-7.0); Hematocrit 35.6 % (41.0-53.0); Hemoglobin 11.6 g/dL (13.5-17.5); Lymphocytes # (auto) 1.3 10 ^3/uL (0.4-5.4); Lymphocytes % (auto) 12.2 % (10.0-50.0); Mean Corpuscular Hemoglobin 25.7 pg (28.0-32.0); Mean Corpuscular Hgb Conc. 32.4 g/dL (32.0-36.0); Mean Corpuscular Volume 79.1 fL (80.0-100.0); Monocytes # (auto) 0.9 10 ^3/uL (0-1.3); Monocytes % (auto) 8.1 % (0.0-12.0); Neutrophils # (auto) 8.2 10 ^3/uL (1.6-8.6); Neutrophils % (auto) 77.2 % (37.0-80.0); Nucleated Red Blood Cells % 0.2 %; Red Cell Distribution Width 17.7 % (11.8-14.3); White Blood Cell 10.7 10^3/uL (4.4-10.8)
[2020-11-15 10:47] LABS: Albumin 2.7 g/dL (3.4-5.0); Calcium 8.2 mg/dL (8.5-10.1)
[2020-11-15 10:51] LABS: Bilirubin, Total 0.8 mg/dL (0.2-1.0); Total Protein 5.7 g/dL (6.4-8.2)
[2020-11-15 13:00] VITALS: BP 113/58
[2020-11-15 17:00] VITALS: BP 111/64
[2020-11-15 20:00] VITALS: BP 111/65
[2020-11-16] MEDS: CEPHALEXIN 250 MG CAP PO SCH ×3 (00:07→11:46)
[2020-11-16 05:00] VITALS: BP 139/72
[2020-11-16] MEDS: Ensure HIGH Protein Chocolate 8oz Bottle PO SCH ×3 (07:55→17:54)
[2020-11-16 09:00] VITALS: BP 109/62
[2020-11-16] MEDS: SOTALOL HCL 80 MG TAB PO SCH ×2 (10:25→21:29)
[2020-11-16] MEDS: SACUBITRIL-VALSARTAN 24mg/26mg TAB PO SCH ×2 (10:25→21:29)
[2020-11-16] MEDS: PANTOPRAZOLE 40 MG/10 ML VIAL INJ IV SCH (10:26)
[2020-11-16] MEDS: FOLIC ACID 1 MG in D5W 5% 50 ML INJ SCH (10:26)
[2020-11-16] MEDS: ENOXAPARIN SOD 60 MG/0.6 ML SYRINGE SC SCH ×2 (10:26→21:29)
[2020-11-16] MEDS: FINASTERIDE 5 MG TAB PO SCH (10:27)
[2020-11-16 13:00] VITALS: BP 115/66
[2020-11-16 17:00] VITALS: BP 125/84
[2020-11-16] MEDS: cloNIDine 0.2 mg/24hr 7DAY PATCH TD SCH (17:05)
[2020-11-16 23:19] VITALS: BP 121/67
[2020-11-17 04:26] VITALS: BP 126/71
[2020-11-17] MEDS: Ensure HIGH Protein Chocolate 8oz Bottle PO SCH ×3 (08:00→17:46)
[2020-11-17 09:00] VITALS: BP 124/68
[2020-11-17] MEDS: PANTOPRAZOLE 40 MG/10 ML VIAL INJ IV SCH (10:08)
[2020-11-17] MEDS: SACUBITRIL-VALSARTAN 24mg/26mg TAB PO SCH ×2 (10:09→22:00)
[2020-11-17] MEDS: ENOXAPARIN SOD 60 MG/0.6 ML SYRINGE SC SCH ×2 (10:09→22:00)
[2020-11-17] MEDS: FINASTERIDE 5 MG TAB PO SCH (10:09)
[2020-11-17] MEDS: SOTALOL HCL 80 MG TAB PO SCH ×2 (10:09→22:00)
[2020-11-17] MEDS: FOLIC ACID 1 MG in D5W 5% 50 ML INJ SCH (10:12)
[2020-11-17] MEDS: ACETAMINOPHEN 325 MG TAB PO PRN (12:56)
[2020-11-17 17:00] VITALS: BP 119/62
[2020-11-17 20:00] VITALS: BP 120/64
[2020-11-18 05:00] VITALS: BP 119/96
[2020-11-18] MEDS: ACETAMINOPHEN 325 MG TAB PO PRN (06:00)
[2020-11-18] MEDS: Ensure HIGH Protein Chocolate 8oz Bottle PO SCH ×3 (08:00→17:29)
[2020-11-18 09:00] VITALS: BP 99/54
[2020-11-18] MEDS: FOLIC ACID 1 MG in D5W 5% 50 ML INJ SCH (10:00)
[2020-11-18] MEDS: SOTALOL HCL 80 MG TAB PO SCH ×2 (10:00→22:23)
[2020-11-18] MEDS ORDERED: FUROSEMIDE 20 MG/2 ML VIAL IV ONE (10:30)
[2020-11-18] MEDS: PANTOPRAZOLE 40 MG/10 ML VIAL INJ IV SCH (11:10)
[2020-11-18] MEDS: FINASTERIDE 5 MG TAB PO SCH (11:21)
[2020-11-18] MEDS: SACUBITRIL-VALSARTAN 24mg/26mg TAB PO SCH ×2 (11:21→22:23)
[2020-11-18 13:00] VITALS: BP 106/51
[2020-11-18 17:00] VITALS: BP 115/72
[2020-11-18] MEDS: RIVAROXABAN 10 MG TAB PO SCH (18:06)
[2020-11-18] MEDS: FUROSEMIDE 20 MG/2 ML VIAL IV SCH (18:07)
[2020-11-19 05:54] VITALS: BP 113/52
[2020-11-19] MEDS: FUROSEMIDE 20 MG/2 ML VIAL IV SCH ×2 (06:02→18:00)
[2020-11-19] MEDS: Ensure HIGH Protein Chocolate 8oz Bottle PO SCH ×3 (08:00→18:00)
[2020-11-19 09:00] VITALS: BP 96/54
[2020-11-19] MEDS: SACUBITRIL-VALSARTAN 24mg/26mg TAB PO SCH (10:00)
[2020-11-19] MEDS: PANTOPRAZOLE 40 MG/10 ML VIAL INJ IV SCH (10:00)
[2020-11-19] MEDS: FOLIC ACID 1 MG in D5W 5% 50 ML INJ SCH (10:00)
[2020-11-19] MEDS: SOTALOL HCL 80 MG TAB PO SCH (10:00)
[2020-11-19] MEDS: FINASTERIDE 5 MG TAB PO SCH (10:00)
[2020-11-19 13:00] VITALS: BP 110/58
[2020-11-19 17:00] VITALS: BP 114/63
[2020-11-19] MEDS: RIVAROXABAN 10 MG TAB PO SCH (18:00)
== END 2020-11-19 21:59 | DRG 981 ==
LOC: TELE-WESTW 22:12
PROVIDERS: ADMIT Internal Medicine Cardiovascular Disease; ATTEND Internal Medicine
PROC: 0QS704Z Reposition Left Upper Femur with Internal Fixation Device, Open Approach (ICD-10-PCS; principal; 2020-11-09 11:07)
PROC: B3151ZZ Fluoroscopy of Bilateral Common Carotid Arteries using Low Osmolar Contrast (ICD-10-PCS; 2020-11-12)
DX: I63.9 Cerebral infarction, unspecified (principal); S72.142A Displaced intertrochanteric fracture of left femur, initial encounter for closed fracture; I50.23 Acute on chronic systolic (congestive) heart failure; D68.59 Other primary thrombophilia; D72.829 Elevated white blood cell count, unspecified; E53.8 Deficiency of other specified B group vitamins; I25.10 Atherosclerotic heart disease of native coronary artery without angina pectoris; I48.0 Paroxysmal atrial fibrillation; N40.0 Benign prostatic hyperplasia without lower urinary tract symptoms; S00.03XA Contusion of scalp, initial encounter; W18.30XA Fall on same level, unspecified, initial encounter; K21.9 Gastro-esophageal reflux disease without esophagitis; I65.23 Occlusion and stenosis of bilateral carotid arteries; Z20.822 Contact with and (suspected) exposure to COVID-19; R26.9 Unspecified abnormalities of gait and mobility; I27.20 Pulmonary hypertension, unspecified; I11.0 Hypertensive heart disease with heart failure; Z79.01 Long term (current) use of anticoagulants; Z79.82 Long term (current) use of aspirin; Z82.0 Family history of epilepsy and other diseases of the nervous system; Z82.49 Family history of ischemic heart disease and other diseases of the circulatory system; Z87.891 Personal history of nicotine dependence; Z95.0 Presence of cardiac pacemaker; Z95.1 Presence of aortocoronary bypass graft; Z88.0 Allergy status to penicillin; Y93.89 Activity, other specified; Y92.89 Other specified places as the place of occurrence of the external cause; Y99.8 Other external cause status
CPT/HCPCS: 36415; 70450; 71045; 72170; 73502; 76001; 80048; 80053; 80061; 81001; 82607; 82746; 83880; 84443; 85014; 85018; 85025; 85049; 85610; 86850; 86900; 86901; 87081; 87426; 93306; 97110; 97116; 97163; 97530; 99152; A4565; C1713; C9113; G0378; J1100; J2250; J2704; J3480; J3490; J7060; Q9967

== ENCOUNTER 2020-12-03 14:48 | Inpatient (IN) | payer MEDICARE, OTHER ==
[~2020-12-03] VITALS: Ht 30.5 cm; Wt 68.0 kg
[~2020-12-03 14:48] MED LIST changes: -MULTIPLE VIT 10 ML IV ONE; -MVI in SODIUM CHLORIDE 0.9% 1,000 ML IVB ONE; -OLME1TAB23 PO; +OLME1TAB73 PO
[2020-12-03 15:45] VITALS: BP 101/74
[2020-12-03] MEDS ORDERED: MORPHINE SULFATE INJECTION 2 MG/ML SYRG IV PRN (16:30)
[2020-12-03] MEDS ORDERED: NITROGLYCERIN 0.4 MG SL TAB SL PRN (16:30)
[2020-12-03] MEDS: Ensure Enlive Strawberry 8oz Bottle PO SCH (18:10)
[2020-12-03 18:26] LABS: Eosinophils # (auto) 0.2 10 ^3/uL (0-0.8); Hemoglobin 12.4 g/dL (13.5-17.5); Neutrophils # (auto) 6.1 10 ^3/uL (1.6-8.6); Red Cell Distribution Width 21.7 % (11.8-14.3)
[2020-12-03 18:28] LABS: Basophils # (auto) 0 10 ^3/uL (0-0.2); Basophils % (auto) 0.5 % (0.0-2.0); Eosinophils % (auto) 2.6 % (0.0-7.0); Hematocrit 38.8 % (41.0-53.0); Lymphocytes # (auto) 1.6 10 ^3/uL (0.4-5.4); Lymphocytes % (auto) 18.5 % (10.0-50.0); Mean Corpuscular Volume 81.3 fL (80.0-100.0); Monocytes # (auto) 0.8 10 ^3/uL (0-1.3); Monocytes % (auto) 9.1 % (0.0-12.0); Neutrophils % (auto) 69.3 % (37.0-80.0); Nucleated Red Blood Cells % 0.1 %; Red Blood Cells 4.77 10^6/uL (4.5-5.90); White Blood Cell 8.8 10^3/uL (4.4-10.8)
[2020-12-03 18:45] LABS: BUN/Creatinine Ratio 30.9; Calcium 8.7 mg/dL (8.5-10.1); Potassium 3.4 mmol/L (3.5-5.1)
[2020-12-03 20:00] VITALS: BP 101/74
[2020-12-03 22:00] VITALS: BP 93/56
[2020-12-03] MEDS: SOTALOL HCL 80 MG TAB PO SCH (22:00)
[2020-12-03] MEDS: IPRATROPIUM BROM 0.5 MG/2.5ML INH SOL NEB SCH (22:03)
[2020-12-03] MEDS: MEGESTROL ACETATE 20 MG TAB PO SCH (22:33)
[2020-12-04 05:00] VITALS: BP 119/59
[2020-12-04] MEDS: IPRATROPIUM BROM 0.5 MG/2.5ML INH SOL NEB SCH ×3 (06:27→22:30)
[2020-12-04 08:00] VITALS: BP 88/56
[2020-12-04] MEDS: Ensure Enlive Strawberry 8oz Bottle PO SCH ×3 (08:00→17:46)
[2020-12-04 08:13] LABS: Basophils # (auto) 0.1 10 ^3/uL (0-0.2); Basophils % (auto) 0.7 % (0.0-2.0); Eosinophils # (auto) 0.3 10 ^3/uL (0-0.8); Mean Corpuscular Hemoglobin 26.9 pg (28.0-32.0); Mean Corpuscular Hgb Conc. 33.3 g/dL (32.0-36.0)
[2020-12-04 08:15] LABS: Eosinophils % (auto) 3.1 % (0.0-7.0); Hematocrit 36.8 % (41.0-53.0); Hemoglobin 12.3 g/dL (13.5-17.5); Lymphocytes % (auto) 24.7 % (10.0-50.0); Mean Corpuscular Volume 80.7 fL (80.0-100.0); Monocytes # (auto) 0.9 10 ^3/uL (0-1.3); Monocytes % (auto) 10.6 % (0.0-12.0); Neutrophils % (auto) 60.9 % (37.0-80.0); Red Blood Cells 4.56 10^6/uL (4.5-5.90); White Blood Cell 8.1 10^3/uL (4.4-10.8)
[2020-12-04 08:21] LABS: Red Cell Distribution Width 21.5 % (11.8-14.3)
[2020-12-04 08:28] LABS: BUN/Creatinine Ratio 36.4; Calcium 8.8 mg/dL (8.5-10.1); Potassium 3.5 mmol/L (3.5-5.1)
[2020-12-04] MEDS: SOTALOL HCL 80 MG TAB PO SCH ×2 (10:00→22:20)
[2020-12-04] MEDS: FINASTERIDE 5 MG TAB PO SCH (10:23)
[2020-12-04] MEDS: RIVAROXABAN 10 MG TAB PO SCH (10:23)
[2020-12-04] MEDS: PANTOPRAZOLE 40 MG TAB PO SCH (10:23)
[2020-12-04] MEDS: MEGESTROL ACETATE 20 MG TAB PO SCH ×2 (10:23→21:30)
[2020-12-04 13:00] VITALS: BP_SYST 101; BP_SYST 115; BP_DIAS 59; BP_DIAS 66
[2020-12-04 17:00] VITALS: BP 115/66
[2020-12-04 22:00] VITALS: BP 159/79
[2020-12-04 23:02] VITALS: BP 122/72
[2020-12-05 05:00] VITALS: BP 111/58
[2020-12-05] MEDS: IPRATROPIUM BROM 0.5 MG/2.5ML INH SOL NEB SCH ×3 (07:03→22:00)
[2020-12-05] MEDS: Ensure Enlive Strawberry 8oz Bottle PO SCH ×3 (08:00→18:18)
[2020-12-05 09:00] VITALS: BP 123/64
[2020-12-05] MEDS: SOTALOL HCL 80 MG TAB PO SCH ×2 (09:42→22:00)
[2020-12-05] MEDS: RIVAROXABAN 10 MG TAB PO SCH (09:43)
[2020-12-05] MEDS: PANTOPRAZOLE 40 MG TAB PO SCH (09:43)
[2020-12-05] MEDS: MEGESTROL ACETATE 20 MG TAB PO SCH ×2 (09:43→21:33)
[2020-12-05] MEDS: FINASTERIDE 5 MG TAB PO SCH (09:43)
[2020-12-05 13:00] VITALS: BP 99/60
[2020-12-05 17:00] VITALS: BP 114/64
[2020-12-05 22:00] VITALS: BP 95/51
[2020-12-06 05:00] VITALS: BP 113/67
[2020-12-06] MEDS: IPRATROPIUM BROM 0.5 MG/2.5ML INH SOL NEB SCH ×3 (07:49→22:05)
[2020-12-06] MEDS: Ensure Enlive Strawberry 8oz Bottle PO SCH ×3 (08:00→18:00)
[2020-12-06 09:00] VITALS: BP 104/74
[2020-12-06] MEDS: SOTALOL HCL 80 MG TAB PO SCH ×2 (09:58→21:47)
[2020-12-06] MEDS: PANTOPRAZOLE 40 MG TAB PO SCH (09:58)
[2020-12-06] MEDS: MEGESTROL ACETATE 20 MG TAB PO SCH ×2 (09:59→21:47)
[2020-12-06] MEDS: FINASTERIDE 5 MG TAB PO SCH (09:59)
[2020-12-06] MEDS: RIVAROXABAN 10 MG TAB PO SCH (09:59)
[2020-12-06 12:57] VITALS: BP 110/68
[2020-12-06 17:00] VITALS: BP 96/54
[2020-12-06 19:37] VITALS: BP 96/54
[2020-12-06 21:42] VITALS: BP 121/102
[2020-12-07 04:56] VITALS: BP 118/69
[2020-12-07] MEDS: IPRATROPIUM BROM 0.5 MG/2.5ML INH SOL NEB SCH ×3 (07:05→21:58)
[2020-12-07] MEDS: Ensure Enlive Strawberry 8oz Bottle PO SCH ×3 (08:00→18:30)
[2020-12-07 09:00] VITALS: BP 115/59
[2020-12-07] MEDS: SOTALOL HCL 80 MG TAB PO SCH ×2 (10:31→21:45)
[2020-12-07] MEDS: FINASTERIDE 5 MG TAB PO SCH (10:32)
[2020-12-07] MEDS: RIVAROXABAN 10 MG TAB PO SCH (10:32)
[2020-12-07] MEDS: PANTOPRAZOLE 40 MG TAB PO SCH (10:32)
[2020-12-07] MEDS: MEGESTROL ACETATE 20 MG TAB PO SCH ×2 (10:32→21:45)
[2020-12-07 12:47] VITALS: BP 115/59
[2020-12-07] MEDS: traMADol HCL 50 MG TAB PO PRN ×2 (13:29→21:45)
[2020-12-07 16:54] VITALS: BP 103/41
[2020-12-07 22:00] VITALS: BP 125/87
[2020-12-08 06:27] VITALS: BP 103/62
[2020-12-08] MEDS: IPRATROPIUM BROM 0.5 MG/2.5ML INH SOL NEB SCH ×3 (06:46→22:57)
[2020-12-08] MEDS: Ensure Enlive Strawberry 8oz Bottle PO SCH ×3 (07:57→18:20)
[2020-12-08 09:00] VITALS: BP 119/59
[2020-12-08] MEDS: PANTOPRAZOLE 40 MG TAB PO SCH (09:18)
[2020-12-08] MEDS: MEGESTROL ACETATE 20 MG TAB PO SCH ×2 (09:18→21:52)
[2020-12-08] MEDS: RIVAROXABAN 10 MG TAB PO SCH (09:18)
[2020-12-08] MEDS: FINASTERIDE 5 MG TAB PO SCH (09:18)
[2020-12-08] MEDS: SOTALOL HCL 80 MG TAB PO SCH ×2 (09:45→21:52)
[2020-12-08 13:00] VITALS: BP 124/54
[2020-12-08 16:32] VITALS: BP 117/71
[2020-12-08 20:00] VITALS: BP 103/62
[2020-12-08 22:00] VITALS: BP 103/62
[2020-12-08] MEDS: traMADol HCL 50 MG TAB PO PRN (23:51)
[2020-12-09 05:39] VITALS: BP 101/63
[2020-12-09 05:58] LABS: Basophils # (auto) 0.1 10 ^3/uL (0-0.2); Eosinophils # (auto) 0.2 10 ^3/uL (0-0.8); Hemoglobin 11.5 g/dL (13.5-17.5); Mean Corpuscular Volume 80.7 fL (80.0-100.0); Monocytes # (auto) 0.7 10 ^3/uL (0-1.3); Neutrophils # (auto) 5.2 10 ^3/uL (1.6-8.6)
[2020-12-09 06:01] LABS: Basophils % (auto) 0.7 % (0.0-2.0); Eosinophils % (auto) 2.5 % (0.0-7.0); Hematocrit 34.5 % (41.0-53.0); Lymphocytes % (auto) 24.2 % (10.0-50.0); Mean Corpuscular Hemoglobin 26.9 pg (28.0-32.0); Mean Corpuscular Hgb Conc. 33.3 g/dL (32.0-36.0); Monocytes % (auto) 8.5 % (0.0-12.0); Neutrophils % (auto) 64.1 % (37.0-80.0); Red Blood Cells 4.28 10^6/uL (4.5-5.90); White Blood Cell 8.1 10^3/uL (4.4-10.8)
[2020-12-09 06:05] LABS: Red Cell Distribution Width 22.2 % (11.8-14.3)
[2020-12-09 06:21] LABS: Potassium 4.5 mmol/L (3.5-5.1)
[2020-12-09 06:27] LABS: Albumin 2.4 g/dL (3.4-5.0); BUN/Creatinine Ratio 26.3; Bilirubin, Total 0.5 mg/dL (0.2-1.0); Calcium 8.7 mg/dL (8.5-10.1); Total Protein 6.3 g/dL (6.4-8.2)
[2020-12-09] MEDS: IPRATROPIUM BROM 0.5 MG/2.5ML INH SOL NEB SCH (06:31)
[2020-12-09] MEDS ORDERED: HYDROcodone-ACET 10/325MG TAB PO PRN (06:45)
[2020-12-09 07:06] LABS: Urine Bacteria FEW /hpf (None Seen); Urine Blood Negative /uL (Negative); Urine Mucus FEW (None Seen); Urine WBC 1 /hpf (0 - 3)
[2020-12-09] MEDS: Ensure Enlive Strawberry 8oz Bottle PO SCH ×3 (08:58→18:00)
[2020-12-09 09:00] VITALS: BP 104/52
[2020-12-09] MEDS: FINASTERIDE 5 MG TAB PO SCH (09:00)
[2020-12-09] MEDS: RIVAROXABAN 10 MG TAB PO SCH (09:00)
[2020-12-09] MEDS: PANTOPRAZOLE 40 MG TAB PO SCH (09:00)
[2020-12-09] MEDS: MEGESTROL ACETATE 20 MG TAB PO SCH (09:01)
[2020-12-09] MEDS: SOTALOL HCL 80 MG TAB PO SCH (10:00)
[2020-12-09 12:46] VITALS: BP 114/77
[2020-12-09] MEDS ORDERED: ALLOPURINOL 300 MG TAB PO ONE (14:00)
[2020-12-09 17:00] VITALS: BP 120/69
== END 2020-12-09 19:40 | DRG 640 ==
LOC: TELE-WESTW 15:39
PROVIDERS: ADMIT Internal Medicine Cardiovascular Disease; ATTEND Internal Medicine Cardiovascular Disease
DX: R62.7 Adult failure to thrive (principal); S72.002A Fracture of unspecified part of neck of left femur, initial encounter for closed fracture; E44.1 Mild protein-calorie malnutrition; I50.20 Unspecified systolic (congestive) heart failure; R64 Cachexia; I48.0 Paroxysmal atrial fibrillation; I11.0 Hypertensive heart disease with heart failure; I49.5 Sick sinus syndrome; I25.10 Atherosclerotic heart disease of native coronary artery without angina pectoris; F09 Unspecified mental disorder due to known physiological condition; Z20.822 Contact with and (suspected) exposure to COVID-19; W18.39XA Other fall on same level, initial encounter; N40.0 Benign prostatic hyperplasia without lower urinary tract symptoms; Z86.73 Personal history of transient ischemic attack (TIA), and cerebral infarction without residual deficits; Z81.8 Family history of other mental and behavioral disorders; Z88.0 Allergy status to penicillin; Y93.89 Activity, other specified; Y92.89 Other specified places as the place of occurrence of the external cause; Y99.8 Other external cause status; Z68.22 Body mass index [BMI] 22.0-22.9, adult
CPT/HCPCS: 36415; 71045; 80048; 80053; 81001; 83880; 84550; 85025; 87081; 87426; 94640; 96365; 96366; 97110; 97116; 97530; G0378; G0463

== ENCOUNTER → 2020-12-03 | Outpatient (CLI) | payer MEDICARE, OTHER ==
[~2020-12-03] MED LIST changes: +CEPH500T PO; +MULTIPLE VIT 10 ML IV ONE; +MVI in SODIUM CHLORIDE 0.9% 1,000 ML IVB ONE; +OLME1TAB23 PO; -OLME1TAB73 PO
[2020-12-03 13:15] VITALS: BP 92/58
[2020-12-03 15:22] VITALS: BP 105/67
== END | disposition home or self-care (01) ==
LOC: CHF HDHVI 13:17
PROVIDERS: ATTEND Internal Medicine Cardiovascular Disease
DX: E86.0 Dehydration (principal); R53.1 Weakness; I11.0 Hypertensive heart disease with heart failure; I50.23 Acute on chronic systolic (congestive) heart failure; I25.10 Atherosclerotic heart disease of native coronary artery without angina pectoris; I48.0 Paroxysmal atrial fibrillation; K21.9 Gastro-esophageal reflux disease without esophagitis; Z79.01 Long term (current) use of anticoagulants; Z79.82 Long term (current) use of aspirin; Z87.891 Personal history of nicotine dependence; Z86.73 Personal history of transient ischemic attack (TIA), and cerebral infarction without residual deficits
CPT/HCPCS: 96365; 96366; G0463; J7030

== ENCOUNTER → 2021-05-13 | Outpatient (CLI) | payer MEDICARE, OTHER | END | disposition home or self-care (01) | LOC: Rad HDHVI 12:58 | PROVIDERS: ATTEND Internal Medicine Cardiovascular Disease | DX: I08.2 Rheumatic disorders of both aortic and tricuspid valves (principal); E78.5 Hyperlipidemia, unspecified | CPT/HCPCS: 93306 ==

== ENCOUNTER → 2021-05-20 | Outpatient (CLI) | payer MEDICARE, OTHER ==
[~2021-05-20] MED LIST changes: +SODIUM CHLORIDE 0.9% 500 ML IV ONE
[2021-05-20 12:05] VITALS: BP 130/74
[2021-05-20 13:00] VITALS: BP 129/78
[2021-05-20 14:10] VITALS: BP 124/83
== END | disposition home or self-care (01) ==
LOC: CHF HDHVI 12:12
PROVIDERS: ATTEND Internal Medicine
DX: E86.0 Dehydration (principal); I11.0 Hypertensive heart disease with heart failure; I50.23 Acute on chronic systolic (congestive) heart failure; I42.0 Dilated cardiomyopathy; E78.5 Hyperlipidemia, unspecified; Z95.1 Presence of aortocoronary bypass graft
CPT/HCPCS: 96360; 96361; G0463; J7040